=== PATIENT | female | born 1975 | race Caucasian/White ===

== ENCOUNTER → 2019-08-07 12:06 | Outpatient (CLI) | payer OTHER, SELFPAY ==
--- NOTE | ~2019-08-07 | MM_ITS ---
EXAMINATION: MM screening rhonda BI w estevan HISTORY: Screening mammogram TECHNIQUE: Craniocaudal and mediolateral oblique 3-D tomosynthesis images were obtained and synthetic 2-D images were generated. CAD analysis was submitted and interpreted. COMPARISON: 01/04/2016, 12/11/2014, 11/22/2013 bilateral digital screening mammogram examinations BREAST PARENCHYMAL COMPOSITION: There are scattered areas of fibroglandular density. FINDINGS: There is diminished size of both breasts consistent with history of bilateral breast reduct ion surgery in 2017. Minimal benign calcification on the left. There is no evidence of suspicious mas s, calcification, or architectural distortion to suggest malignancy in either breast. There has been no suspicious interval change. IMPRESSION: 1. No mammographic evidence of malignancy. 2. Recommend routine screening mammography in one year. BI-RADS Category 2: Benign finding(s). Reviewed, dictated and finalized at location A. ATTENDANT
== END ==
PROVIDERS: Visit Provider Obstetrics & Gynecology
DX: Z12.31 Encounter for screening mammogram for malignant neoplasm of breast (principal)
CPT/HCPCS: 77063; 77067

== ENCOUNTER 2020-03-09 11:10 | Outpatient (CLI) | payer OTHER, SELFPAY ==
--- NOTE | ~2020-03-09 | XR_ITS ---
XR chest 2V DATE: 03/09/2020 11:41 INDICATION: Cough, shortness of breath, chest pain TECHNIQUE: PA and lateral views COMPARISON: 03/03/2017 PA view FINDINGS: Normal heart size. No hilar or mediastinal enlargement. No pulmonary infiltrate or consolid ation, pleural effusion or pulmonary vascular congestion or pneumothorax. IMPRESSION: No active cardiopulmonary disease Reviewed, dictated and finalized at location A.
== END 2020-03-09 11:11 | disposition home or self-care (01) ==
PROVIDERS: PCP Family Medicine; Visit Provider Nurse Practitioner Family
DX: R05 Cough (principal); R06.02 Shortness of breath; R07.9 Chest pain, unspecified
CPT/HCPCS: 71046

== ENCOUNTER 2020-04-06 15:24 | Outpatient (CLI) | payer OTHER, SELFPAY ==
[2020-04-06 16:43] LABS: Monoscreen Negative (Negative); Negative Monotest Control Negative (Negative); Positive Monotest Control Positive (Positive)
== END 2020-04-06 15:25 | disposition home or self-care (01) ==
LOC: ANHLAB 15:26
PROVIDERS: PCP Family Medicine; Visit Provider Otolaryngology
DX: J02.9 Acute pharyngitis, unspecified (principal)
CPT/HCPCS: 36415; 86308

== ENCOUNTER 2020-11-27 14:22 | Outpatient (CLI) | payer OTHER, SELFPAY ==
--- NOTE | ~2020-11-27 | XR_ITS ---
EXAMINATION: XR abdomen/kub 1V INDICATION: Right-sided abdominal pain TECHNIQUE: Supine views of the abdomen were obtained on 2 radiographs. COMPARISON: None FINDINGS: The bowel gas pattern is normal. The visualized lung bases are clear. The osseous structure s are unremarkable. IMPRESSION: 1. No radiographic correlate for the patient's symptoms. Reviewed, dictated and finalized at location A.
== END 2020-11-27 14:23 ==
PROVIDERS: PCP Family Medicine; Visit Provider Nurse Practitioner Family
DX: R10.9 Unspecified abdominal pain (principal)
CPT/HCPCS: 74018

== ENCOUNTER 2021-06-24 10:26 | Outpatient (CLI) | payer OTHER, SELFPAY ==
--- NOTE | ~2021-06-24 | XR_ITS ---
XR lumbar spine 2-3V DATE: 06/24/2021 10:52 INDICATION: Back pain TECHNIQUE: AP, lateral, coned lateral lumbosacral views COMPARISON: 11/23/2015 CT abdomen pelvis FINDINGS: There is slight dextroscoliosis of the lumbar spine. No fracture or bone destruction is evident. The lumbar pedicles are intact. Lumbar and lumbosacral in terspaces are well preserved. The sacral iliac joints are normal. IMPRESSION: Slight scoliosis Reviewed, dictated and finalized at location A. CTOR OF PROCUREMENT IMPRESSION: Slight scoliosis
--- NOTE | ~2021-06-24 | XR_ITS ---
XR chest 2V DATE: 06/24/2021 10:53 INDICATION: Cough TECHNIQUE: 2 views COMPARISON: 03/09/2020 2 view chest FINDINGS: Normal heart size. No hilar or mediastinal enlargement. No pulmonary infiltrate or consolid ation, pleural effusion or pulmonary vascular congestion or pneumothorax is detected. Included skelet al structures are unremarkable. IMPRESSION: No active cardiopulmonary disease Reviewed, dictated and finalized at location A. E WIRER
== END 2021-06-24 10:27 ==
PROVIDERS: PCP Family Medicine; Visit Provider Nurse Practitioner Family
DX: M54.9 Dorsalgia, unspecified (principal); R05.9 Cough, unspecified
CPT/HCPCS: 71046; 72100

== ENCOUNTER 2022-01-27 10:52 | Outpatient (CLI) | payer OTHER, SELFPAY ==
--- NOTE | ~2022-01-27 | MR_ITS ---
EXAMINATION: MR lumbar spine wo con DATE: 01/27/2022 11:30 INDICATION: Low back pain with radiculopathy. TECHNIQUE: Magnetic resonance imaging (MRI) of the lumbar spine was performed without intravenous con trast. Sequences included sagittal T2-weighted FSE, sagittal T2-weighted FS FSE, sagittal T1-weighted FSE, and axial T2-weighted FSE. COMPARISON: Lumbar spine radiograph 06/24/21 FINDINGS: Bone alignment is normal. Vertebral body heights and intervertebral disc heights are normal . The distal spinal cord signal intensity is normal. The conus medullaris is at T12-L1. The following disc levels are specifically discussed: L1-L2: The disc does not extend beyond the endplate margin. There is no facet joint osteoarthritis. T here is no neural foraminal stenosis. There is no central canal stenosis. L2-L3: The disc does not extend beyond the endplate margin. There is no facet joint osteoarthritis. T here is no neural foraminal stenosis. There is no central canal stenosis. L3-L4: The disc does not extend beyond the endplate margin. There is mild bilateral facet joint osteo arthritis. There is no neural foraminal stenosis. There is no central canal stenosis. L4-L5: The disc is bulging and has an annular fissure. There is moderate bilateral facet joint osteoa rthritis. There is mild bilateral neural foraminal stenosis. There is mild central canal stenosis. L5-S1: There is a central protrusion. There is moderate bilateral facet joint osteoarthritis. There i s no neural foraminal stenosis. There is mild central canal stenosis. IMPRESSION: 1. Mild lumbar spondylosis. Reviewed, dictated and finalized at location A. IMPRESSION: 1. Mild lumbar spondylosis.
== END 2022-01-27 10:53 ==
PROVIDERS: PCP Family Medicine; Visit Provider Physician Assistant Medical
DX: M47.26 Other spondylosis with radiculopathy, lumbar region (principal)
CPT/HCPCS: 72148

== ENCOUNTER 2023-02-13 02:31 | Day surgery (SDC) | payer OTHER, SELFPAY ==
[2023-01-30 13:47] VITALS: BMI 30.7
--- NOTE | 2023-02-13 09:02 | WPDANESEPPF ---
Anes - Initial Pre Proc Eval Procedure: Operation Date: 02/13/23 13:00 Proposed Procedures p Screening Colonoscopy - Dax Henson MD Date/Time: 02/13/23 09:02 Surgeon: Dax Henson MD Pre Op Diagnosis: neoplasm screening Patient Data Age: 47 Gender: F Height: 1.52 m Weight: 71.5 kg Allergies Allergy/AdvReac Type Severity Reaction Status Date / Time cefazolin AdvReac Intermediate ANTIBIOTIC Verified 02/13/23 11:41 THAT SOUNDS LIKE THIS, NAUSEA/VOMITING morphine AdvReac Intermediate itching Verified 02/13/23 11:41 sulfanilamide AdvReac Intermediate nausea Verified 02/13/23 11:41 Home Medications Medication Instructions Recorded Confirmed Type montelukast 10 mg tablet 10 mg PO DAILY #30 tabs 01/03/22 01/30/23 Rx (Singulair) albuterol sulfate 90 mcg/actuation See Rx Instructions .Route 10/02/22 01/30/23 Rx aerosol inhaler .COMPLEX #9 grams pwoksl-rljajdjc-vfrnyie 1 cap PO TID #30 caps 10/02/22 01/30/23 Rx 24,000-76,000-120,000 unit capsule,delayed rel (Creon) ondansetron HCl 4 mg tablet 4 mg PO Q6H PRN nausea and 11/21/22 01/30/23 Rx vomiting #20 tabs cyclobenzaprine 10 mg tablet 10 mg PO TID PRN muscle spasm #60 11/29/22 01/30/23 Rx tabs nabumetone 500 mg tablet 500 mg PO BID #30 tabs 12/19/22 01/30/23 Rx escitalopram oxalate 10 mg tablet 10 mg PO DAILY #90 tabs 01/11/23 01/30/23 Rx Patient hx anesthesia problems: none Family hx anesthesia problems: none Results Review: All pre-operative results and documents have been reviewed as part of the pre-operative evaluation. [facility] Past Medical History Medical History (Updated 02/13/23 @ 11:52 by Dax Henson MD) Acute meniscal tear of right knee Anxiety BMI 29.0-29.9,adult BMI 30.0-30.9,adult BMI 31.0-31.9,adult Other stressful life events affecting family and household Tensor fascia carolyn syndrome Surgical History Surgical History History of knee surgery Hx of breast reduction, elective Family History Family History Mother Hypertension H/O knee surgery Asthma Hyperlipidemia ALS (amyotrophic lateral sclerosis) Grandparent Family history of lung cancer Family history of coronary artery disease Diabetes mellitus Family history of malignant neoplasm of ovary Father Acute myocardial infarction Sibling Asthma Other Carcinoma of colon Family history of malignant neoplasm of breast Social History Social History (Updated 01/30/23 @ 10:48 by ISMA Hastings) Smoking status: Former smoker Second hand tobacco smoke exposure: No Alcohol intake: never Substance use: never Substance use type: does not use Lack of Transportation: No Lack of Food: Never True Current Housing: I Have Housing Concerned About Future Housing: No Difficulty Paying Gas/Electric Bills: No Difficulty Paying for Meds: No Currently Unemployed: No Education: High School Diploma/GED Difficulty w/ Childcare or Family Care: No Living arrangements: other Additional living arrangements comments: With sp Occupation/Education: occupation 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 Pt's father in September and mother was diagnosed with ALS. Pt Gender identity (if verbalized by the patient): Female Anes - Eval Final PreProcedure Day of Procedure 02/13/23 09:02 Patient weight: obese Heart: regular rate and rhythm Lungs: clear to auscultation Airway: Mallampati scale class II Neurological: alert and oriented Last oral intake: >/= 8 hours ASA classification: II Emergent: no Anesthetic plan: proceed Anesthesia type and monitoring: general GIVS and standard monitoring Results Review: All pre-operative results and documents have been reviewed as part of the pre-operative evaluation.
[2023-02-13 11:42] VITALS: BP 136/76; PULSE 87; RESP 18; TEMP 36.2; O2SAT 100
[2023-02-13] MEDS: LACTATED RINGERS 1,000 ML 150 ML IV CONT (11:51)
--- NOTE | 2023-02-13 11:51 | PM.HPGS ---
History of Present Illness History of Present Illness Consent: Risks, benefits, and alternatives have been discussed and questions answered. Patient agrees to proceed with procedure. Chief complaint: neoplasm screening Narrative: Amelia Schneider is a 47 year old female Presents for screening colonoscopy. Patient's current weight appetite and bowel movements are normal. Patient denies abdominal pain. She has had no bleeding. Family history noncontributory. Review of Systems Review of Systems: Review of systems noncontributory. [facility] Past Medical History Medical History (Updated 02/13/23 @ 11:52 by Dax Henson MD) Acute meniscal tear of right knee Anxiety BMI 29.0-29.9,adult BMI 30.0-30.9,adult BMI 31.0-31.9,adult Other stressful life events affecting family and household Tensor fascia carolyn syndrome Surgical History Surgical History History of knee surgery Hx of breast reduction, elective Family History Family History Mother Hypertension H/O knee surgery Asthma Hyperlipidemia ALS (amyotrophic lateral sclerosis) Grandparent Family history of lung cancer Family history of coronary artery disease Diabetes mellitus Family history of malignant neoplasm of ovary Father Acute myocardial infarction Sibling Asthma Other Carcinoma of colon Family history of malignant neoplasm of breast Social History Social History (Updated 01/30/23 @ 10:48 by ISMA Hastings) Smoking status: Former smoker Second hand tobacco smoke exposure: No Alcohol intake: never Substance use: never Substance use type: does not use Lack of Transportation: No Lack of Food: Never True Current Housing: I Have Housing Concerned About Future Housing: No Difficulty Paying Gas/Electric Bills: No Difficulty Paying for Meds: No Currently Unemployed: No Education: High School Diploma/GED Difficulty w/ Childcare or Family Care: No Living arrangements: other Additional living arrangements comments: With sp Occupation/Education: occupation 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 Pt's father in September and mother was diagnosed with ALS. Pt Gender identity (if verbalized by the patient): Female Meds Home Medications and Allergies Home Medications Medication Instructions Recorded Confirmed Type montelukast 10 mg tablet 10 mg PO DAILY #30 tabs 01/03/22 01/30/23 Rx (Singulair) albuterol sulfate 90 mcg/actuation See Rx Instructions .Route 10/02/22 01/30/23 Rx aerosol inhaler .COMPLEX #9 grams pzxawx-hzhvzoys-kuzaceh 1 cap PO TID #30 caps 10/02/22 01/30/23 Rx 24,000-76,000-120,000 unit capsule,delayed rel (Creon) ondansetron HCl 4 mg tablet 4 mg PO Q6H PRN nausea and 11/21/22 01/30/23 Rx vomiting #20 tabs cyclobenzaprine 10 mg tablet 10 mg PO TID PRN muscle spasm #60 11/29/22 01/30/23 Rx tabs nabumetone 500 mg tablet 500 mg PO BID #30 tabs 12/19/22 01/30/23 Rx escitalopram oxalate 10 mg tablet 10 mg PO DAILY #90 tabs 01/11/23 01/30/23 Rx Allergies Allergy/AdvReac Type Severity Reaction Status Date / Time cefazolin AdvReac Intermediate ANTIBIOTIC Verified 02/13/23 11:41 THAT SOUNDS LIKE THIS, NAUSEA/VOMITING morphine AdvReac Intermediate itching Verified 02/13/23 11:41 sulfanilamide AdvReac Intermediate nausea Verified 02/13/23 11:41 Vital Signs Vital Signs - 24 hr 02/13/23 11:42 Temperature 97.1 F L Pulse Rate 87 Respiratory Rate 18 Blood Pressure 136/76 Pulse Oximetry 100 Oxygen Delivery Room Air Exam Narrative: Physical exam reveals patient to be alert. Vital signs stable. HEENT exam is unremarkable. Patient is anicteric. Lungs are clear to auscultation and percussion. Heart is without murmur or extra sounds. Ab
[2023-02-13 14:00] VITALS: BP 106/67; PULSE 93; RESP 22; O2SAT 97
[2023-02-13 14:10] VITALS: BP 99/65; PULSE 84; RESP 18; O2SAT 99
[2023-02-13 14:20] VITALS: BP 115/69; PULSE 84; RESP 17; O2SAT 100
== END 2023-02-13 14:22 | disposition home or self-care (01) ==
PROVIDERS: PCP Family Medicine; Visit Provider Internal Medicine Gastroenterology
PROC: 0DJD8ZZ Inspection of Lower Intestinal Tract, Via Natural or Artificial Opening Endoscopic (ICD-10-PCS; CPT 45378; principal; 2023-02-13 13:00)
DX: Z12.11 Encounter for screening for malignant neoplasm of colon (principal); K62.1 Rectal polyp; K64.8 Other hemorrhoids; F41.9 Anxiety disorder, unspecified; Z79.51 Long term (current) use of inhaled steroids; E66.9 Obesity, unspecified; Z68.29 Body mass index [BMI] 29.0-29.9, adult
CPT/HCPCS: 45385; 88305; J2704; J7120

== ENCOUNTER → 2023-02-14 14:35 | Outpatient (CLI) | payer OTHER, SELFPAY ==
--- NOTE | ~2023-02-14 | MM_ITS ---
EXAMINATION: MM screening rhonda BI w estevan HISTORY: Screening mammogram TECHNIQUE: Craniocaudal and mediolateral oblique 3-D tomosynthesis images were obtained and synthetic 2-D images were generated. CAD analysis was submitted and interpreted. COMPARISON: 08/07/2019, 01/04/2016 bilateral screening mammogram examinations BREAST PARENCHYMAL COMPOSITION: There are scattered areas of fibroglandular density. FINDINGS: History of bilateral breast reduction surgery in 2017. There is no evidence of suspicious m ass, calcification, or architectural distortion to suggest malignancy in either breast. There has bee n no suspicious interval change. IMPRESSION: 1. No mammographic evidence of malignancy. 2. Recommend routine screening mammography in one year. BI-RADS Category 1: Negative Reviewed, dictated and finalized at location A.
== END ==
PROVIDERS: PCP Family Medicine; Visit Provider Obstetrics & Gynecology
DX: Z12.31 Encounter for screening mammogram for malignant neoplasm of breast (principal)
CPT/HCPCS: 77063; 77067

== ENCOUNTER 2023-05-04 08:18 | Outpatient (CLI) | payer OTHER, SELFPAY ==
--- NOTE | 2023-05-24 07:15 | WPDHOMESLEEP ---
Sleep Study - Home Unattended Date of Study: 05/04/23 Ordering Provider: Ran Naidu MD Interpreting Provider: Jenelle Roper, DO Home Sleep Study Type: Watch PAT Height: 1.52 m Weight: 72.575 kg Body Mass Index: 31.2 Neck Circumference (inches): 13 [place]: 18 Reason for Sleep Study Loud snoring, unrefreshing sleep Sleep History The patient is a 47-year-old female that had a sleep study ordered by her primary care physician for evaluation of sleep apnea. She frequently awakens from sleep short of breath. She rarely awakens at night with heartburn, belching or cough. She constantly snores loudly enough that others complain. She frequently has trouble sleeping when she has a cold. She occasionally wakes up gasping for air throughout the night. She frequently has breathing problems at night observed by herself or others. She occasionally sweats excessively at night. She rarely has heart palpitations or irregular heartbeats during the night. She occasionally falls asleep during the day but rarely falls asleep while driving. She denies sleep paralysis and cataplexy. She occasionally has trouble at school or work due to sleepiness. She rarely experiences vivid dreamlike scenes upon awakening or falling asleep. He denies feeling afraid of going to sleep. She denies having nightmares. She denies remembering her dreams. He denies having thoughts racing through her mind. She occasionally feels sad or depressed and frequently has anxiety. She frequently has muscular tension. She occasionally notices parts of her body jerk. She rarely kicks during the night. She denies having crawling and aching feelings in legs but frequently has leg pain during the night. She denies grinding her teeth during sleep and denies awakening with morning jaw pain. She is frequently bothered by pain during the day and occasionally awakened by pain during the night. She frequently wakes up feeling stiff in the morning. She frequently wakes up with sore or achy muscles. She frequently wakes up with pain in the neck, spine or other joints. She does not have a set bedtime or wake up time. She is able to fall asleep within a few seconds. She wakes up 5-6 times throughout the night to feed her grandchild and is able to fall back asleep within 20 minutes. She typically gets 5 hours of sleep per night. She does not stay in bed after waking up in the morning. She currently lives with her , daughter, daughter's boyfriend and her grand children. She denies consuming any caffeinated beverages within 2 hours of bedtime. She denies engaging in physical exercise before bedtime. She denies reading and watching television before falling asleep. She will take naps during the afternoon or the evening whenever she can but they are not refreshing. She consumes 1-2 glasses of soda or caffeinated tea per day. She denies tobacco, alcohol and recreational drug use. 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
[2023-05-24 07:25] VITALS: BMI 31.2
== END 2023-05-05 10:27 | disposition home or self-care (01) ==
LOC: ANHCSM 08:19
PROVIDERS: PCP Family Medicine; Visit Provider Family Medicine
DX: G47.19 Other hypersomnia (principal); G47.10 Hypersomnia, unspecified
CPT/HCPCS: 95800

== ENCOUNTER 2023-07-14 09:22 | Outpatient (CLI) | payer OTHER, SELFPAY ==
--- NOTE | 2023-07-26 10:27 | WPDSLEEPSTUD ---
Sleep Study Date of Study: 07/14/23 Ordering Provider: Ran Naidu MD Interpreting Physician: Lyn Figueroa MD Sleep Study Type: Polysomnogram Height: 1.5 m Weight: 72.575 kg Body Mass Index: 32.3 Neck Circumference (inches): 13 [place]: 18 Reason for Sleep Study Loud snoring Sleep History Amelia Schneider is a 47-year-old female who had a home sleep test May 04, 2023, AHI was 3 which is in the normal range, however she desaturated to 83%. She returns for an in-lab polysomnogram. She frequently awakens from sleep feeling short of breath. She rarely awakens at night with heartburn, belching or coughing. She constantly snores loudly enough that others complain. She frequently has trouble sleeping when she has a cold. She occasionally wakes up gasping for air at night. She frequently has breathing problems at night observed by her . She occasionally sweats excessively at night. She rarely has heart palpitations or irregular heartbeats during the night. She occasionally falls asleep during the day but rarely falls asleep while driving. She denies feeling paralyzed on falling asleep or upon waking. She does not have loss of muscle tone with strong emotion. She occasionally has daytime difficulties due to excessive daytime sleepiness. 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 She rarely experiences vivid dreamlike scenes upon awakening or falling asleep. She is not afraid of going to sleep. She denies having nightmares. She denies remembering her dreams. He denies having thoughts racing through her mind. She occasionally feels sad or depressed, frequently has anxiety. She frequently has muscular tension. She occasionally notices parts of her body jerk. She rarely kicks during the night. She denies having crawling and aching feelings in legs but frequently has leg pain during the night. She denies grinding her teeth during sleep and denies awakening with morning jaw pain. She is frequently bothered by pain during the day and occasionally awakened by pain during the night. She frequently wakes up feeling stiff in the morning. She frequently wakes up with sore or achy muscles. She frequently wakes up with pain in the neck, spine or other joints. She does not have a set bedtime or wake up time. She is able to fall asleep within a few seconds. She wakes up 5-6 times throughout the night to feed her grandchild and is able to return to sleep within 20 minutes. She typically gets 5 hours of sleep per night. She does not stay in bed after waking up in the morning. She currently lives with her , daughter, daughter's boyfriend and her grandchildren. She takes naps during the afternoon or the evening whenever she can but they are not refreshing. Habits: Tobacco: none. Caffeine: 1-2 glasses of soda or tea per day. 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
[2023-07-26 10:29] VITALS: BMI 32.3
== END 2023-07-15 07:00 | disposition home or self-care (01) ==
PROVIDERS: PCP Family Medicine; Visit Provider Family Medicine
DX: G47.33 Obstructive sleep apnea (adult) (pediatric) (principal); R06.83 Snoring
CPT/HCPCS: 95810

== ENCOUNTER 2024-03-14 14:30 | Outpatient (CLI) | payer OTHER, SELFPAY ==
--- NOTE | ~2024-03-14 | CT_ITS ---
CLINICAL INDICATION: Right lower quadrant pain (at site of incisional hernia). COMPARISON: 11/27/2015 . TECHNIQUE: Computed tomography (CT) of the abdomen and pelvis was performed without intravenous contr ast. The dose-length product was 656.21 mGy-cm. FINDINGS/OBSERVATIONS: Visualized lower thorax:The bilateral lung bases are clear. The heart is of normal size, without pericardial effusion. Small hiatal hernia. Liver: The liver is not enlarged measuring 16 cm in longitudinal dimension. Gallbladder and biliary system: The gallbladder is only minimally distended without calcified stones. Pancreas: Limited evaluation of the pancreas secondary to the left and intravenous contrast. Spleen: Homogeneous attenuation of the spleen without enlargement. Kidneys: No hydronephrosis or renal calculi. Adrenal glands: Unremarkable. Gastrointestinal tract: Fecal stasis within the colon. Appendix:The air-filled appendix is normal caliber (series 3, image 136). Vasculature: Unremarkable Lymph nodes: No pathologically enlarged or morphologically suspicious lymph nodes within the retroper itoneum or at the root of the mesentery. Pelvic structures:The bladder is decompressed. A subcentimeter urachal cyst is present. Multiple calcifications are identified within the pelvis. The uterus is nonvisualized. Body wall and musculoskeletal: No significant degenerative disease within the lumbosacral spine. Small fat-containing umbilical hernia. IMPRESSION: No discrete abnormality is identified within the right lower quadrant to correspond to patient's pain complaints. Reviewed, dictated and finalized at location A. IMPRESSION: No discrete abnormality is identified within the right lower quadrant to corres pond to patient's pain complaints.
== END 2024-03-14 14:31 | disposition home or self-care (01) ==
PROVIDERS: PCP Family Medicine; Visit Provider Surgery
DX: K43.2 Incisional hernia without obstruction or gangrene (principal)
CPT/HCPCS: 74176

== ENCOUNTER 2024-05-31 05:51 | Day surgery (SDC) | payer OTHER, SELFPAY ==
[2024-05-10 09:33] VITALS: BMI 34.2
--- NOTE | 2024-05-30 09:49 | WPDANESEPPF ---
Anes - Initial Pre Proc Eval Procedure: Operation Date: 05/31/24 07:30 Proposed Procedures p Arthrodesis First Metatarsophalangeal Joint Left Foot - Corey Kim Jr., DPM s Hammer Toe Repair Second Digit Left Foot - Corey Kim Jr., DPM Date/Time: 05/30/24 09:49 Surgeon: Corey Kim Jr., DPM Pre Op Diagnosis: Bunion Left Foot, Hammer Toe Second Digit LT Foot Patient Data Age: 48 Gender: F Height: 1.52 m Weight: 79.5 kg Allergies Allergy/AdvReac Type Severity Reaction Status Date / Time cefazolin AdvReac Intermediate ANTIBIOTIC Verified 05/31/24 06:12 THAT SOUNDS LIKE THIS, NAUSEA/VOMITING Inhaled Anesthetics (Halogen AdvReac Intermediate Nausea and Verified 05/31/24 06:12 Based) Vomiting morphine AdvReac Intermediate itching Verified 05/31/24 06:12 sulfanilamide AdvReac Intermediate nausea Verified 05/31/24 06:12 Home Medications ?Medication ?Instructions ?Recorded ?Confirmed ?Type [id number] 1 cap PO TID #100 caps 10/10/23 05/31/24 Rx 24,000-76,000-120,000 unit capsule,delayed rel (Creon) cyclobenzaprine 10 mg tablet 10 mg PO TID PRN muscle spasm #60 10/19/23 05/31/24 Rx tabs cetirizine 10 mg tablet (Zyrtec) 10 mg PO DAILY #90 tabs 01/01/24 05/31/24 Rx diclofenac sodium 1 % topical gel 2 g topical QID #200 grams 01/23/24 05/31/24 Rx escitalopram oxalate 10 mg tablet 10 mg PO DAILY #90 tabs 04/01/24 05/31/24 Rx albuterol sulfate 90 mcg/actuation See Rx Instructions .Route 04/11/24 05/31/24 Rx aerosol inhaler .COMPLEX #9 grams benzonatate 100 mg capsule 100 mg PO TID PRN cough 05/07/24 05/31/24 History loratadine 10 mg tablet (Claritin) 10 mg PO DAILY 05/10/24 05/31/24 History Patient hx anesthesia problems: post op nausea/vomiting Family hx anesthesia problems: none Results Review: All pre-operative results and documents have been reviewed as part of the pre-operative evaluation. 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 Apnea Anxiety Other stressful life events affecting family and household Tensor fascia carolyn syndrome Acute meniscal tear of right knee (~2020) Surgical History Surgical History H/O meniscectomy of right knee Delivery by section c/ s x 2 History of gynecological procedure (10/24/12) I&D BARTHOLIN GLAND ABSCESS S/P total abdominal hysterectomy (08/03/06) BEAU- NO BSO - dense pelvic adhesions History of gynecological procedure (07/27/02) LAPAROSCOPIC ADHESIOLYSIS History of gynecological procedure (09/04/02) VAGINAL BX - GRANULATION TISSUE H/O tubal ligation (~2000) History of hysteroscopy (03/11/99) suction D&C missed AB Hx of breast reduction, elective (~2017) History of knee surgery Family History Family History Mother Hypertension H/O knee surgery Asthma Hyperlipidemia ALS (amyotrophic lateral sclerosis) Grandparent Family history of lung cancer Family history of coronary artery disease Diabetes mellitus Family history of malignant neoplasm of ovary Father Acute myocardial infarction Sibling Asthma H/O lumpectomy Anemia Other Carcinoma of colon Family history of malignant neoplasm of breast Social History Social History Smoking status: Never smoker Second hand tobacco smoke exposure: Yes Alcohol intake: never Substance use: never Substance use type: does not use Do You Feel Safe in your Home?: Yes Lack of Transportation: No Lack of Food: Never True Current Housing: I Have Housing Concerned About Future Housing: No Difficulty Paying Gas/Electric Bills: No Difficulty Paying for Meds: Decline to Answer Currently Unemployed: No Education: High School Diploma/GED Difficulty w/ Childcare or Family Care: No Living arrangements: with family Additional living arrangements comments: Occupation/Education: occupation 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 Pt's father in September and mother was diagnosed with ALS. Gender identity (if verbalized by the patient): Female Sexual Orientation (if Verbalized by the Patient): Straight or Heterosexual Spiritual care concerns: No Anes - Eval Final PreProcedure Day of Procedure 05/30/24 09:49 Patient weight: obese Heart: regular rate and rhythm Lungs: clear to auscultation Airway: Mallampati scale class II Neurological: alert and oriented Last oral intake: >/= 8 hours ASA classification: II Emergent: no Anesthetic plan: proceed Anesthesia type and monitoring: general LMA and standard monitoring Results Review: All pre-operative results and documents have been reviewed as part of the pre-operative evaluation. Informed Consent: The patient's anesthetic plan and its attendant risks and benefits were discussed with the patient/family/POA. Questions were solicited and answers provided to the satisfaction of the patient/family/POA.
[2024-05-31] VITALS (11 sets, daily range): BP systolic 107–130; BP diastolic 69–77; PULSE 83–105; RESP 13–20; TEMP 36.1–36.6; O2SAT 97–100; BMI 33.8
--- NOTE | ~2024-05-31 | XR_ITS ---
EXAMINATION: XR fluoroscopy no charge DATE: 05/31/2024 09:21 INDICATION: Hammertoe correction with proximal interphalangeal arthrodesis implant. TECHNIQUE: 2 fluoroscopic images of the left forefoot were obtained during procedure performed by Dr. Kim. Radiologist was not present for the imaging or procedure. The amount of fluoroscopy time u sed during this procedure was 0.5 minutes. Total DAP was 1.58 cGycm^2 COMPARISON: 01/03/2018 FINDINGS: Interval bunionectomy at the medial head of the first metatarsal and first metatarsophalangeal arthro desis with oblique compression screw and dorsal plate and screw fixation. Shortening osteotomy at the neck of the second metatarsal which is fixed with a pair of screws. Second proximal interphalangeal arthrodesis with placement over a wire of an implant spanning the joint space. No fractures. Alignmen t appears essentially anatomic. Lucent likely postoperative gas at the slightly widened second metata rsophalangeal joint space. IMPRESSION: 1. Fluoroscopy utilized during orthopedic procedure at the left forefoot as detailed above. See proce dure note for further detail. Reviewed, dictated and finalized at location A. FACTURING INTERN IMPRESSION: 1. Fluoroscopy utilized during orthopedic procedure at the left forefoot as det scott above. See procedure note for further detail.
[2024-05-31] MEDS: LACTATED RINGERS 1,000 ML 30 ML IV CONT ×2 (06:37→09:26)
--- NOTE | 2024-05-31 07:12 | WPDHPUPDATE1 ---
History and Physical Update Update Date/Time: 05/31/24 07:12 History and Physical has been reviewed, including an updated exam of the patient. There are NO changes in the patient's condition. Risks, benefits, and alternatives have been discussed and questions answered. Patient agrees to proceed with procedure.
--- NOTE | 2024-05-31 07:13 | WPDHPUPDATE1 ---
History and Physical Update Update Date/Time: 05/31/24 07:13 History and Physical has been reviewed, including an updated exam of the patient. There are NO changes in the patient's condition. Risks, benefits, and alternatives have been discussed and questions answered. Patient agrees to proceed with procedure.
[2024-05-31] MEDS: SCOPOLAMINE 1 MG PATCH 1 PATCH TRANSDERM (07:21)
[2024-05-31] MEDS: ceFAZolin SODIUM 2 GM/20 ML SW SYRINGE IV PUSH (07:27)
[2024-05-31] MEDS: BUPivacaine HCL 0.5% PF 30 ML VIAL INFILTRATE (07:36)
[2024-05-31] MEDS: LIDOCAINE 2% LOCAL INJ 20 ML VIAL 10 ML INFILTRATE (07:54)
--- NOTE | 2024-05-31 09:38 | W.PM.PROC2 ---
Procedure Note - Detailed Date of Procedure 05/31/24 Pre-op Diagnosis 1. Bunion Left Foot 2. Hammer Toe Second Digit Left Foot Post-op Diagnosis Other (1. Bunion Left Foot 2. Hammer Toe Second Digit Left Foot 3. 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 Arthrodesis of the first metatarsal phalangeal joint left foot 2. Hammertoe repair second digit left foot 3. 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 Description of Procedure PROCEDURE IN DETAIL: Under mild sedation, the patient was brought into the operating room, placed on the operating table in supine position. A pneumatic ankle tourniquet was placed about the patient's ipsilateral ankle. Following general anesthesia and a proximal Fox block along the base of the 1st and second metatarsals with a one to one mix 2% Lidocaine plain and 0.5% Marcaine plain 20ccs total, the foot was then scrubbed, prepped, and draped in the usual aseptic manner. An Esmarch bandage was then used to exsanguinate the patient's foot and the pneumatic ankle tourniquet was then inflated. Surgery began in the following manner: Attention was directed to the dorsal medial aspect of the 1st metatarsophalangeal joint of the left foot where there was a moderate subcutaneous prominence was noted. The incision was made starting along the central shaft of the 1st metatarsal and extending just proximal to the interphalangeal joint of the hallux. The incision was continued deep down through the subcutaneous tissues using sharp and blunt dissection. All bleeders were cauterized as necessary. At this point, the dissection was continued down to the level of the periosteum and capsular structures overlying the 1st metatarsophalangeal joint. A full length periosteum and capsular incision was made just medial to the extensor hallucis longus tendon. The periosteum and capsular structures were freed from the base of the proximal phalanx as well as the distal 1st metatarsal. At this point, the 1st metatarsophalangeal joint was identified. There was loss of articular cartilage to the head of the 1st metatarsal as well as the base of the proximal phalanx worse centrally and medially. There was significant broadening and hypertrophy of the 1st metatarsophalangeal joint. Utilizing a sagittal bone saw, the hypertrophied 1st metatarsal was resected dorsally, medially, and laterally. A power bur was used to make sure that there were no rough edges and also to further debride the hypertrophic 1st metatarsal. Next, a rongeur was used to resect the hypertrophic base of the proximal phalanx. At this point, the reamer system for the Maxforce plaste system was used to denude the degenerative cartilage from the head of the 1st metatarsal as well as the base of the proximal phalanx. The cartilage and subchondral bone were fully debrided utilizing the reamer system until healthy bleeding bone was noted. Next, a 2-0 drill bit was used to further fenestrate the head of the 1st metatarsal as well as the base of the proximal phalanx in order to allow fusion across the 1st metatarsophalangeal joint. Next, a guide wire for a 3.0 headless Arthrex compression screw was driven from the medial aspect of the base of the proximal phalanx into the head of the 1st metatarsal in order to serve as temporary fixation, next the cannulated screw was driven and provided excellent compression. Next A large steel plate was used to make sure that the hallux was in a rectus position both in the sagittal plane as well as the frontal plane. Excellent position of the hallux was noted. Next, a Maxforce plate was placed atop the 1st metatarsophalangeal joint held in position with Schneider wires. Utilizing standard principles and techniques, the distal drill holes were drilled and three 3.0 mm mm fully-threaded locking screws were driven from dorsal to plantar holding the distal aspect of the plate intact. At this point, the Maxforce compression system was utilized from dorsal distal to proximal plantar across the 1st metatarsophalangeal joint with excellent compression noted. Next, a 3.0mm locking screw was used to further compress the joint along the oblong dynamic compression screw slot. Next, the remaining 2 proximal drill holes were drilled from dorsal to plantar across and two 3.0 mm locking screws were driven form dorsal to plantar. The wound site was then flushed with copious amounts of sterile saline. Fluoroscopy was used to make sure that the plate was appropriately aligned and oriented and also to make sure that the screws were of appropriate length and orientation. Excellent position of the 1st metatarsophalangeal joint was visualized in all planes. Next, the periosteum and capsular structures were reapproximated with 2-0 Vicryl. Next, the subcutaneous structures were reapproximated with 4-0 Vicryl. Next, the skin was reapproximated and coapted utilizing 4-0 Monocryl in running subcuticular suture fashion technique. Attention was directed to the second digit of the left foot where a 5 cm incision was made from the distal interphalangeal joint extending to the 2nd metatarsal shaft. A transverse tenotomy was created dorsal to the proximal interphalangeal joint, next the head of the proximal phalanx was resected with an oscillating saw blade, the Arthrex Size Small Dynanite hammertoe planer was used to denude and prepare the joint for the hammertoe implant from the base of the middle phalanx and distal proximal phalanx. Next, I implanted the Arthrex Dynanite size small hammertoe implant in a cannulated fashion using standard technique. Fluoroscopy was used to make sure that the digit and implant were appropriately positioned. The dissection was continued to the dorsal aspect of the 2nd metatarsal head of the right foot where a 2 cm incision was made just medial to the extensor tendon to the 2nd digit. The incision was continued deep down through the subcutaneous tissues using sharp and blunt dissection. All bleeders were cauterized as necessary. A full-length periosteal incision was made overlying the 2nd metatarsal head distally. Next, a sagittal bone saw was used to make an osteotomy starting along the dorsal aspect of the articular surface to the head of the 2nd metatarsal in a parallel fashion to the shaft of the 2nd metatarsal. After this osteotomy was completed, the head of the 2nd metatarsal was noted to float into a more corrected proximal position. Two Arthrex 2.0mm Cannulated Quickfix screws were driven from dorsal to plantar across the osteotomy site with excellent compression noted. The wound site was then flushed with copious amounts of sterile saline. Next, the periosteum and capsular structures overlying 2nd digit and 2nd metatarsophalangeal joint were reapproximated with 4-0 Vicryl. Next, subcutaneous structures were reapproximated and coapted utilizing 4-0 Vicryl. I reapproximated the extensor tendon overlying the 2nd digit proximal interphalangeal joint with 4-0 Vicryl. Next, the skin was reapproximated and coapted utilizing 4-0 Monocryl in running subcuticular suture fashion technique. Upon completion of the procedure, the incision was dressed with Steri-Strips, Adaptic, 4x4s, Kerlix, and Coban. The pneumatic ankle tourniquet was then deflated and a prompt hyperemic response was noted to all digits of the foot. A posterior splint was then applied to the affected lower extremity. It is important to note that Dr. Kim was present throughout the procedure. The patient did very well with the procedure and the anesthesia. The patient was transferred to the recovery room with vital signs stable and vascular status intact to all toes of the foot. Following a period of postoperative monitoring, the patient will be discharged home on the following written and oral postoperative instructions: 1. Keep the dressing clean, dry, and intact. 2. The patient to be strictly nonweightbearing with a knee scooter or crutches. 3. The patient should ice and elevate the foot when at rest. 4. The patient should contact Dr. Kim for all postop care and if any problems should arise. 5. Prescriptions were written for Percocet 5/325, dispensed 40 to be taken 1 p.o. q.4-6 hours as needed for severe pain. Furthermore, the patient should also take Xarelto 10 mg to be taken 1 p.o. daily starting 24 hours after surgery to prevent DVT for 14 days followed by one 325 mg aspirin until walking is re-initiated. Implants 1. Arthrex Maxforce plate with Five 3.0mm locking screws 2. One Arthrex Headless cannulated screw 3. Two 2.0 Quickfix Arthrex Screws 4. One Arthrex Dynanite PIPJ size small hammertoe implant Estimated Blood Loss 1 Drains No Packing No Pathology None sent Complications No immediate complications Condition Stable Disposition Same day
--- NOTE | 2024-05-31 10:06 | SUR.PHASEI ---
Pt resting comfortably in PACU, Pt states numbness to leg, pain 0/10, denies nausea, VSS. Will continue to monitor pt.
--- NOTE | 2024-05-31 10:45 | WPDANESPN ---
Anes - Prog Note Post-Op Date/Time: 05/31/24 10:45 Cardiovascular status: normal Respiratory status: normal Airway patency: baseline Mental status: baseline Post-Op hydration status: normal Vital Signs: Last Vital Signs Temp 36.1 C L 05/31/24 09:26 Pulse 99 05/31/24 10:27 Resp 16 05/31/24 10:27 BP 122/74 05/31/24 10:27 Pulse Ox 100 05/31/24 10:27 O2 Del Method Room Air 05/31/24 10:27 O2 Flow Rate 8 05/31/24 09:46 Pain Score (VAS): 1 I/O: Intake & Output 05/30/24 05/31/24 05/31/24 23:59 07:59 15:59 Intake Total 1850 Balance 1850 Post-procedural complaints: none Patient Feedback: Patient satisfied with anesthetic care. Other Findings: Patient vital signs back to baseline. Patient denies nausea and vomiting. Patient's pain under control. Patient OK for discharge.
--- OUTSIDE RECORDS SUMMARY | 2024-06-07 10:54 | XMS_ITS | Encounter Summary ---
Author Organization [facility] Address [address] [place] [address]. [place], [place] [id number] [place] [id number] Care Team Providers Care Employee Relations Manager Name Role Phone Ross Campbell Primary Care Provider [phone] Encounter Details Date Type Department Care Team (Latest Contact Info) Description 08/24/2023 Travel Social History Tobacco Use Types Packs/Day Years Used Date Smoking Tobacco: Never Smokeless Tobacco: Never Comments:na Alcohol Use Standard Drinks/Week Comments Never 0 (1 standard drink = 0.6 oz pur e alcohol) PHQ-2 Answer Date Recorded Patient Health Questionnaire-2 Score 0 09/19/2022 Education Answer Date Recorded What is the highest level of school you have completed or the highest degree you have received? High school graduate 03/21/2023 Comments No Sex and Gender Information Value Date Recorded Sex Assigned at Not on file Legal Sex Female 8:23 PM CDT Gender Identity Not on file Sexual Orientation Not on file documented as of this encounter Plan of Treatment Not on file documented as of this encounter Visit Diagnoses Not on filedocumented in this encounter Care Teams Employee Relations Manager Relationship Specialty Start Date End Date Ross Campbell FNP [address] [place] [address] PCP - General Nurse Practitioner Family 02/11/21 documented as of this encounter
--- OUTSIDE RECORDS SUMMARY | 2024-06-07 10:54 | XMS_ITS | Encounter Summary ---
Author Organization [facility] Address [address] [place] [address]. [place], [place] [id number] [place] [id number] Care Team Providers Care Photographer Helper Name Role Phone Ross Campbell Primary Care Provider [phone]- [phone] Reason for Referral * Consultation/Treatment (Routine) - New Request Specialty Diagnoses / Procedures Referred By Contac t Referred To Contact PAIN MANAGEMENT Diagnoses Radiculopathy, lumbar region Procedures OFFICE/OUTPATIENT NEW LOW MDM 30-44 MINUTES OFFICE/OUTPT VISIT,NEW,LEVL IV OFFICE/OUTPT VISIT,NEW,LEVL V OFFICE/OUTPT VISIT,EST,LEVL III OFFICE/OUTPT VISIT,EST,LEVL IV OFFICE/OUTPT VISIT,EST,LEVL V Karen De Jesus MD [address] [place] [address] Phone: tel: fax: Althea Null MD [facility] [address] [facility] [place] [address] Phone: tel: fax: Referral ID Status Reason Start Date Expiration Date Visits Requested Visits Authorized [id number] New Request Specialty Services 08/24/2023 09/23/2024 1 1 Scheduling Instructions Right leg pain. Please assess for right L5-S1 transforaminal block * Imaging (Routine) - Closed Specialty Diagnoses / Procedures Referred By Contac t Referred To Contact RADIOLOGY Diagnoses Radiculopathy, lumbar region Procedures MRI LUMB SPINE WO CON Karen De Jesus MD [address] [place] [id number] Phone: tel: fax: Referral ID Status Reason Start Date Expiration Date Visits Re quested Visits Authorized [id number] Closed 08/24/2023 08/23/2024 1 1 Reason for Visit * Reason Comments Follow Up inj * Surgical (Routine) - Closed Specialty Diagnoses / Procedures Referred By Contac t Referred To Contact NEUROSURGERY Diagnoses Radiculopathy of lumbosacral region Procedures OFFICE/OUTPT VISIT,NEW,LEVL III OFFICE/OUTPT VISIT,NEW,LEVL IV OFFICE/OUTPT VISIT,NEW,LEVL V OFFICE/OUTPT VISIT,EST,LEVL III OFFICE/OUTPT VISIT,EST,LEVL IV OFFICE/OUTPT VISIT,EST,LEVL V Dillan Gee DO Phone: tel: fax: Karen De Jesus MD [address] [place] [address] Phone: tel: fax: Referral ID Status Reason Start Date Expiration Date V isits Requested Visits Authorized [id number] Closed Specialty Services 09/19/2022 10/21/2023 99 99 Encounter Details Date Type Department Care Team (Late st Contact Info) Description 08/24/2023 2:20 PM CDT Office Visit [facility] - [address], [address] [place] [address] Karen De Jesus MD [address] [place] [id number] Follow Up (inj) Social History Tobacco Use Types Packs/Day Years [...] on file documented as of this encounter Last Filed Vital Signs Vital Sign Reading Time Taken Comments Blood Pressure 122/76 08/24/2023 2:32 PM CDT Pulse 83 08/24/2023 2:32 PM CDT Temperature 37 ??C (98.6 ??F) 08/24/2023 2:32 PM CDT Respiratory Rate - - Oxygen Saturation 99% 08/24/2023 2:32 PM CDT Inhaled Oxygen Concentration - - Weight 71.2 kg (157 lb) 08/24/2023 2:32 PM CDT Height 152.4 cm (5') 08/24/2023 2:32 PM CDT Body Mass Index 30.66 08/24/2023 2:32 PM CDT documented in this encounter Progress Notes * Trisha Brunner MA - 08/24/2023 2:20 PM CDT PCP, TAWNYA Hernandez 04/13/23 Bilateral L6-S1 lumbar transforaminal VEGA inj 03/21/23 Right L4-5 lumbar transforaminal VEGA inj Previous -Pain is in the right hip and buttock and at this into the lateral aspect of the right thigh into the calf. She has numbness and tingling in the same distribution that extends into the top of the foot and toes. 100 % relief inj for one month walking normal no swelling in right leg Back to base line * Karen De Jesus MD - 08/24/2023 2:20 PM CDT Neurosurgery Progress Note History Amelia Schneider is a 47-year-old female who presents with right leg pain. Pain started after she tripped and fell on her right side at work in 2020. No significant back pain. Pain is in the right hip and buttock and radiates into the lateral aspect of the right thigh into the calf. She has numbness and tingling in the same distribution that extends into the top of the foot and toes. She had a right meniscus injury during the same incident that was treated surgically. MRI from 2021 showed mild degenerative changes at L4-5 where there is mild canal stenosis and mild bilateral foraminal stenosis. Mild canal stenosis at L5-S1. 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 Chronic right L5-S1 radiculopathy. She had right L4-5 transforaminal block that helped relieve her pain 100% for 1 month. She had bilateral L5-S1 transforaminal blocks that helped relieve her pain by 100% for 1 month. Pain is back to baseline. Past Medical History: Diagnosis Date Migraines Seasonal allergies Past Surgical History: Procedure Laterality Date ABDOMINAL HYSTERECTOMY W/ PARTIAL VAGINACTOMY 2007 BREAST REDUCTION BILATERAL 2017 SECTION x2 HC MENISCAL REPAIR 11/05/2020 right knee arthroscopy Social History Tobacco Use Smoking status: Never Smokeless tobacco: Never Tobacco comments: na Vaping Use Vaping Use: Never used Substance Use Topics Alcohol use: Never Drug use: Never Comment: na Family History Problem Relation Name Age of Onset Heart Disease Mother Recently dx w/ ALS 03/26 No outpatient medications have been marked as taking for the 08/24/23 encounter (Appointment) with Karen De Jesus MD. Review of patient's allergies indicates: Allergen Reactions General Anesthesia Nausea Only Morphine Rash Sulfa Antibiotics Rash Physical Exam Filed Vitals: 08/24/23 1432 BP: 122/76 Pulse: 83 Temp: 98.6 ??F (37 ??C) SpO2: 99% Weight: 71.2 kg (157 lb) Height: 1.524 m (5') Physical Exam: Alert and oriented x3 Assessment Encounter Diagnose(s) ICD-10-CM SNOMED CT(R) 1. Radiculopathy, lumbar region M54.16 LUMBAR RADICULOPATHY 2. Foraminal stenosis of lumbar region M48.061 STENOSIS OF LUMBAR VERTEBRAL FORAMEN Plan We discussed management options. I recommend for her to undergo updated MRI lumbar spine since her previous MRIs from 2 years ago. I offered her a referral to pain management for repeat injections and she agreed. Follow-up in 3 to 4 months. I spent 40 minutes today reviewing the patient's medical record, obtaining history, performing an exam, reviewing imaging, ordering medications, tests, and/or procedures, documenting in the medical record, counseling and educating the patient/family/caregiver and coordination of care. YARELI DE JESUS MD documented in this encounter Plan of Treatment Scheduled Referrals Name Type Priority Associated Diagnoses Orde r Schedule Ambulatory Referral to Pain Management Referral Routine Radiculopathy, lumbar region Ordered: 08/24/2023 documented as of this encounter Results * MRI LUMB SPINE WO CON (09/27/2023 12:47 PM CDT) Anatomical Region Laterality Modality Spine Magnetic Resonan ce 10/01/2023 4:51 PM CDT Impressions 10/01/2023 4:55 PM CDT IMPRESSION: 1. Multilevel degenerative changes in the lower thoracic and lumbar spine as detailed above. 2. Likely reactive/degenerative edema along the L4-L5 endplates and facets. 3. Approximately 1.9 cm cystic structure posterior bladder, uncertain whether ovarian cyst or bladder diverticulum. Probable 1.9 cm left ovarian cyst. Could further evaluate with follow-up pelvic ultrasound. Referred By: KAREN DE JESUS Interpreted By: Mayo Dueñas MD, 10/01/2023 4:51 PM Narrative 10/01/2023 4:55 PM CDT INDICATION: Low back pain. Numbness in right leg. EXAMINATION: MRI lumbar spine without contrast. TECHNIQUE: Multiplanar and multisequence MRI images of the lumbar spine were obtained without contrast. COMPARISON: None FINDINGS: There are 5 lumbar type vertebral bodies designated as L1 through L5; using this numbering system, the conus medullaris terminates at T12-L1 and appears unremarkable. The lumbar vertebral alignment, vertebral body heights, and facet alignment are maintained. Multilevel degenerative changes are evident in the lower thoracic and lumbar spine with disc degeneration, endplate osteophytes, ligamentum flavum thickening, and facet hypertrophy noted. Likely reactive/degenerative edema noted along the right L4-L5 endplates and L4-L5 facets (right worse than left). Mild multilevel disc desiccation, greatest at L4-L5. Imaged portions of the soft tissues reveal a 1.9 cm cystic structure posterior to the bladder. Probable 1.9 cm left ovarian cyst. T10-T11 and T11-T12: Mild disc bulges, evaluated only on sagittal images. T12-L1: Mild disc bulge. No canal or foraminal narrowing. L1-L2: Mild disc bulge. Mild facet hypertrophy. No canal or foraminal narrowing. L2-L3: Mild disc bulge. Mild ligamentum flavum thickening. Facet hypertrophy. No canal or foraminal narrowing. L3-L4: Mild disc bulge. Mild ligamentum flavum thickening. Facet hypertrophy. No significant canal or foraminal narrowing. L4-L5: Mild disc bulge. Small endplate osteophytes. Ligamentum flavum thickening. Facet arthropathy with bilateral facet joint synovial effusions. Flattening of the ventral thecal sac and abutment of the traversing nerve roots. Minimal canal stenosis. Minimal foraminal narrowing. L5-S1: Mild disc bulge. Facet hypertrophy. No significant canal or foraminal narrowing. Procedure Note Mayo Dueñas MD - 10/01/2023 INDICATION: Low back pain. Numbness in right leg. EXAMINATION: MRI lumbar spine without contrast. TECHNIQUE: Multiplanar and multisequence MRI images of the lumbar spine were obtainedwithout contrast. COMPARISON: None FINDINGS: There are 5 lumbar type vertebral bodies designated as L1 through L5;using this numbering system, the conus medullaris terminates at T12-L1 andappears unremarkable. The lumbar vertebral alignment, vertebral body heights, and facetalignment are maintained. Multilevel degenerative changes are evident inthe lower thoracic and lumbar spine with disc degeneration, endplateosteophytes, ligamentum flavum thickening, and facet hypertrophy noted.Likely reactive/degenerative edema noted along the right L4-L5 endplatesand L4-L5 facets (right worse than left). Mild multilevel discdesiccation, greatest at L4-L5. Imaged portions of the soft tissues reveal a 1.9 cm cystic structureposterior to the bladder. Probable 1.9 cm left ovarian cyst. T10-T11 and T11-T12: Mild disc bulges, evaluated only on sagittalimages. T12-L1: Mild disc bulge. No canal or foraminal narrowing. L1-L2: Mild disc bulge. Mild facet hypertrophy. No canal or foraminalnarrowing. L2-L3: Mild disc bulge. Mild ligamentum flavum thickening. Facethypertrophy. No canal or foraminal narrowing. L3-L4: Mild disc bulge. Mild ligamentum flavum thickening. Facethypertrophy. No significant canal or foraminal narrowing. L4-L5: Mild disc bulge. Small endplate osteophytes. Ligamentum flavumthickening. Facet arthropathy with bilateral facet joint synovialeffusions. Flattening of the ventral thecal sac and abutment of thetraversing nerve roots. Minimal canal stenosis. Minimal foraminalnarrowing. L5-S1: Mild disc bulge. Facet hypertrophy. No significant canal orforaminal narrowing. IMPRESSION: 1. Multilevel degenerative changes in the lower thoracic and lumbar spineas detailed above. 2. Likely reactive/degenerative edema along the L4-L5 endplates andfacets. 3. Approximately 1.9 cm cystic structure posterior bladder, uncertainwhether ovarian cyst or bladder diverticulum. Probable 1.9 cm left ovariancyst. Could further evaluate with follow-up pelvic ultrasound. Referred By: KAREN DE JESUS Interpreted By: Mayo Dueñas MD, 10/01/2023 4:51 PM Karen De Jesus MD MRI Final Resul t documented in this encounter Visit Diagnoses Diagnosis Radiculopathy, lumbar region- Primary Thoracic or lumbosacral neuritis or radiculitis, unspecified Foraminal stenosis of lumbar region Spinal stenosis, lumbar region, without neurogenic claudication Radiculopathy, lumbar region Thoracic or lumbosacral neuritis or radiculitis, unspecified documented in this encounter Care Teams Photographer Helper Relationship Specialty Start Date End Date Ross Campbell FNP [address] [place] [address] PCP - General Nurse Practitioner Family 02/11/21 documented as of this encounter
--- OUTSIDE RECORDS SUMMARY | 2024-06-07 10:54 | XMS_ITS | Encounter Summary ---
Author Organization [facility] Address [address] [place] [address]. [place], [place] [id number] [place] [address] Care Team Providers Care Pharmacy Data Analyst Name Role Phone Ross CampbellP Primary Care Provider +1- [phone] Reason for Visit * Auth/Cert (Routine) Specialty Diagnoses / Procedures Referred By Contac t Referred To Contact Diagnoses Radiculopathy, lumbar region Radiculopathy, lumbar region [M54.16] Procedures INJECTION EPIDURAL TRANSFORAMINAL L5-S1 Landon Null MD [facility] [address] [place] [address] Phone: tel: fax: Referral ID Status Reason Start Date Expiration Date Visits Re quested Visits Authorized [id number] 1 1 Encounter Details Date Type Department Care Team (Latest Contact Info) Description 10/02/2023 10:50 AM CDT - 10/02/2023 11:33 AM T Hospital Encounter [facility] [place], [place] [id number] Landon Null MD [facility] [address] [place] [address] [id number] Discharge Disposition: Home or Self Care (Routine Discharge) Social History Tobacco Use Types Packs/Day Years [...] Sign Reading Time Taken Comments Blood Pressure 135/81 10/02/2023 11:26 AM CDT Pulse 86 10/02/2023 11:26 AM CDT Temperature 36.7 ??C (98 ??F) 10/02/2023 11:07 AM CDT Respiratory Rate 18 10/02/2023 11:26 AM CDT Oxygen Saturation 100% 10/02/2023 11:26 AM CDT Inhaled Oxygen Concentration - - Weight 78.1 kg (172 lb 3.2 oz) 10/02/2023 11:07 AM CDT Height 152.4 cm (5') 10/02/2023 11:07 AM CDT Body Mass Index 33.63 10/02/2023 11:07 AM CDT documented in this encounter Discharge Instructions * Discharge Instructions* Niecy Marin RN - 10/02/2023 11:33 AM CDT Ross[facility] Interventional Pain Management Discharge Instructions WHAT TO DO TODAY: Limit your activity today, but bedrest is not required You may resume your normal activity tomorrow as tolerated Do not drive a vehicle or operate hazardous equipment for the first 24 hours after your procedure. You may experience numbness, tingling, and weakness in your extremities for several hours after your injection. Please be careful when walking or standing so you do not fall. You may remove your bandage in the morning and you may shower. WHAT TO DO TOMORROW: Resume your blood thinner medication if applicable. WHAT TO EXPECT OVER THE NEXT FEW DAYS TO A WEEK: Any weakness or tingling typically wears off after several hours but you may have some tingling forseveral days after some injections It is normal that once the numbing medicine wears off that you could be sore for several days before you notice relief. Pain should get better day by day. The steroid will start working after 2-3 days and can take up to 2 weeks for it to fully work. Everyone has different response to the injection depending on the amount of inflammation and diagnosis. HOW TO CONTROL YOUR PAIN: Injection site soreness is normal and will subside in a few days. We suggest ice packs to the injection site for 10-20 at a time every 2-3 hours. After 24 hours you may use heat if preferred or you may alternate heat and ice. Your pain may be worse for a couple of days; you may use any medications that you were using beforeyour visit. You may also use Tylenol, Motrin or Aleve if not contraindicated by your Primary Care Physician. If you no longer have any prescribed medicine, please get your refill from the physician who fist prescribed it for you. For patients who had a Radiofrequency Ablation your pain could last for up to 2 weeks. We are an Interventional pain management. We do not prescribe pain medicine. COMMON SIDE EFFECTS OF STEROIDS: You may experience warm, flushing sensation with redness in your face, neck and chest. You may feel anxious, jittery, irritable or have trouble sleeping. You may have increased hunger or menstrual changes (for women). If you are a diabetic you may have increased blood sugars. If you do and are unable to control please call your doctor who manages your diabetes. All side effects are temporary and should subside in approximately a week. WHEN TO CALL THE DOCTOR AND HOW TO REACH US: Call [phone] ext. [phone] for scheduling, insurance questions or speak with a nurse. Our hours are Monday- 8:00am-4:00pm Call the number above for any bleeding/drainage/redness/swelling at the injection site, severe pain, persistent chills, fever over 101 or greater, or new or different pain or numbness. If you are unable to reach us call 911 or go to the nearest emergency room. If you have shortness of breath, fast heart rate, throat/tongue swelling call 911 or go to the nearest emergency room. ANY NEW BOWEL OR BLADDER INCONTINENCE ISSUES OR NUMBNESS TO PELVIC REGION PLEASE GO TO THE EMERGENCY ROOM IMMEDIATELY! If you have the following insurances, please read CAREFULLY. Medicare, Medicare replacement plans, and/or Government plans [facility] Commercial plans Your insurance recommends we do ONE injection every THREE months depending on the amount of relief that you obtained from your injection. You should call our clinic in 2 months to schedule your next injection. Your insurance would like to measure your overall percentage of relief along with improvements in activity 3 months after your injection. Our office will need to document your progress at the 3 monthmarker. AFTER 14 DAYS, if you feel like the injection did not give you sufficient relief, please call our office to discuss with a nurse. If your pain RETURNS AND PERSISTS BEFORE the 2 month leonora, please call our office to discuss with anurse. PLEASE CALL WITH YOUR PERCENTAGE OF RELIEF IN {[facility] F/U:12967} Please call [phone] Ext. [phone] option 4. You may need to leave a message. Please leave the following information... 1. Name, date of , a number we can reach you for questions and the date you were here. 2. The amount of relief you received from your injection in percentage and how long it has lasted or if it is still currently helping you. 3. If you still have pain where is the pain? 4. Are you taking any medications for your pain? 5. Are you doing your physical therapy exercises/stretches or any physical activity? 6. Is there any activity that you are able to do that you were unable to do prior to your injection? Please know that if we do not receive this information your next injection may not get authorized by your insurance company and your treatment could be delayed. documented in this encounter Medications at Time of Discharge cetirizine 10 MG tablet Take 1 tablet (10 mg total) by mouth daily. 01/15/2021 CREON [id number] units capsule TAKE 1 CAPSULE BY MOUTH THREE TIMES DAILY WITH MEALS AND OR SNACKS 10/01/2020 VENTOLIN HFA 108 (90 Base) MCG/ACT inhaler INHALE 1 PUFF BY MOUTH EVERY 4 HOURS NEEDED FOR SHORTNESS OF BREATH AND FOR WHEEZING 03/09/2020 escitalopram (LEXAPRO) 10 MG tablet 12/19/2022 documented as of this encounter H&P Notes * Landon Null MD - 10/02/2023 11:20 AM CDT Admission Note With PreProc Assess CC: Low back right leg pain HPI: 47-year-old female seen as a follow-up she was last seen by me 04/13/2023. 04/13/23 Bilateral L6-S1 lumbar transforaminal VEGA inj 03/21/23 Right L4-5 lumbar transforaminal VGEA inj Previous -Pain is in the right hip and buttock and at this into the lateral aspect of the right thigh into the calf. She has numbness and tingling in the same distribution that extends into the top of the foot and toes. 100 % relief inj for one month walking normal no swelling in right leg Back to base line Patient is referral from office Dr. De Jesus for right L5-S1 lumbar transforaminal injection. Prior to Admission medications Medication Sig Start Date End Date Taking? Authorizing Provider cetirizine 10 MG tablet Take 1 tablet (10 mg total) by mouth daily. 01/15/21 Yes Doc [facility] CREON [id number] units capsule TAKE 1 CAPSULE BY MOUTH THREE TIMES DAILY WITH MEALS AND OR SNACKS 10/01/20 Yes Doc [facility] escitalopram (LEXAPRO) 10 MG tablet 12/19/22 Yes Default History Genericprovider VENTOLIN HFA 108 (90 Base) MCG/ACT inhaler INHALE 1 PUFF BY MOUTH EVERY 4 HOURS NEEDED FOR SHORTNESS OF BREATH AND FOR WHEEZING 03/09/20 Yes Doc [facility] Allergies Allergen Reactions General Anesthesia Nausea Only Morphine Rash Sulfa Antibiotics Rash Past Medical History: Diagnosis Date Migraines Seasonal allergies Past Surgical History: Procedure Laterality Date ABDOMINAL HYSTERECTOMY W/ PARTIAL VAGINACTOMY 2007 BREAST REDUCTION BILATERAL 2017 SECTION x2 HC MENISCAL REPAIR 11/05/2020 right knee arthroscopy Social History Socioeconomic History Marital status: Spouse name: Not on file Number of children: Not on file Years of education: Not on file Highest education level: High school graduate Occupational History Not on file Tobacco Use Smoking status: Never Smokeless tobacco: Never Tobacco comments: na Vaping Use Vaping status: Never Used Substance and Sexual Activity Alcohol use: Never Drug use: Never Comment: na Sexual activity: Not on file Other Topics Concern Service Not Asked Blood Transfusions Not Asked Caffeine Concern Not Asked Occupational Exposure Not Asked Hobby Hazards Not Asked Sleep Concern Not Asked Stress Concern Not Asked Weight Concern Not Asked Special Diet Not Asked Back Care Not Asked Exercise Not Asked Bike Helmet Not Asked Seat Belt Not Asked Self-Exams Not Asked Wheelchair Not Asked Walker Not Asked Upper extremity braces/slings Not Asked Lower extermity braces/slings Not Asked Self Care Yes Social History Narrative Lives at home with her family Social Determinants of Health Financial Resource Strain: Not on file Food Insecurity: Not on file Transportation Needs: Not on file Physical Activity: Not on file Stress: Not on file Social Connections: Not on file Intimate Partner Violence: Not on file Housing Stability: Not on file Review of Systems: no changes except specified in HPI, no bladder or bowel incontinence PHYSICAL EXAM Filed Vitals: 10/02/23 1107 BP: 138/76 Pulse: 76 Resp: 18 Temp: 98 ??F (36.7 ??C) TempSrc: Skin SpO2: 99% Weight: 78.1 kg (172 lb 3.2 oz) Height: 1.524 m (5') General: alert, appears stated age and cooperative Skin: normal and no rash or abnormalities HEENT: neck supple with midline trachea Lungs: no respiratory distress Heart: regular rate and rhythm Abdomen: soft Neuro: No focal abnormalities noted ASSESSMENT Lumbar radiculopathy PLAN 47-year-old female seen as a follow-up we will proceed with right L5-S1 lumbar transforaminal injection. Risks including, but not limited to infection, permanent neurological deficit due to nerve root injury, bleeding, anaphylaxis, flushing, cerebral spinal fluid leak, paralysis, spinal cord injury, thinning of the skin, thinning of the bones, muscle cramping. documented in this encounter OR Notes * Op Note - Landon Null MD - 10/02/2023 11:27 AM CDT PROCEDURE: LUMBAR TRANSFORAMINAL EPIDURAL STEROID INJECTION UNDER FLUOROSCOPY LEVELS: Right L5/S1 PREOPERATIVE DIAGNOSIS: LUMBAR RADICULOPATHY POSTOPERATIVE DIAGNOSIS: SAME PREOP SURGEON: LANDON NULL MD RISKS, BENEFITS, ALTERNATE TREATMENTS DISCUSSED. WRITTEN CONSENT OBTAINED. PATIENT TAKEN TO PROCEDURE ROOM PLACED IN PRONE POSITION. PILLOW UNDER ABDOMEN TO REDUCE LUMBAR LORDOSIS. STERILE PREP AND DRAPE OF LUMBOSACRAL SPINE PERFORMED. ASA STANDARD MONITORS APPLIED. Risks including, but not limited to infection, permanent neurological deficit due to nerve root injury, bleeding, anaphylaxis, flushing, cerebral spinal fluid leak, paralysis, spinal cord injury, thinning of the skin, thinning of the bones, muscle cramping. PROCEDURE: VERTEBRAL BODIES WERE SQUARED.. SKIN AND SUBCUTANEOUS TISSUES ANESTHETIZED WITH 1% LIDOCAINE. 22 GAUGE CHIBA NEEDLES WITH BENT TIPS WERE USED. C ARM WAS MOVED TO THE OBLIQUE X RAY VIEW. TARGET FOR L 5-S1 NERVE ROOT IS THE 6 O???CLOCK POSITION OF THE PEDICLE SHADOW IN THE OBLIQUE X RAYVIEW AT THE LEVEL OF L 5-S1 ON THE right SIDE. APPROPRIATE NEEDLE TIP POSITION WAS CONFIRMED IN THE AP,OBLIQUE AND LATERAL VIEWS. AFTER NEGATIVE ASPIRATION, 5 CC OF CONTRAST SPLIT BETWEEN THE ABOVE MENTIONED LEVELS WAS INJECTED IN THE LATERAL VIEW CONFIRMING SPREAD IN THE ANTERIOR EPIDURAL SPACE. NEGATIVE ASPIRATION PRIOR TO 5 CC OF CONTRAST INJECTED IN THE AP VIEW CONFIRMING SPREAD ALONG THE APPROPRIATE NERVE ROOTS ALONG WITH EDIDURAL SPREAD. NO INTRAVASCULAR OR INTRATHECAL UPTAKE NOTED. NEGATIVE ASPIRATION PRIOR TO INJECTION OF 4OMG DEPOMEDROL AND 2 CC OF 0.25% BUPIVACAINE INJECTED PER LEVEL. NEEDLES REMOVED. NO COMPLICATIONS. POST PROCEDURE: PATIENT TOLERATED PROCEDURE WELL AND OBSERVED PRIOR TO DISCHARGE. DISCHARGED IN STABLE CONDITION WITH APPROPRIATE POST-PROCEDURE INSTRUCTIONS. documented in this encounter Plan of Treatment Not on file documented as of this encounter Procedures Procedure Name Priority Date/Time Associated Diagnosis Comments INJECTION EPIDURAL TRANSFORAMINAL 10/02/2023 11:24 AM CDT Radiculopathy, lumbar region XR PAIN CLINIC C-ARM Today 10/02/2023 10:52 AM CDT documented in this encounter Results * XR PAIN CLINIC C-ARM (10/02/2023 10:52 AM CDT) Narrative Radiology, Technologist - 10/02/2023 10:52 AM CDT This report does not contain a radiologist's interpretation. Please review associated procedure and/or operative report. Landon Null MD GENERAL IMAGING Final Result documented in this encounter Visit Diagnoses Not on filedocumented in this encounter Administered Medications Inactive Administered Medications - up to 3 most recent administrations Medication Order MAR Action Action Date Dose Rate Site chlorhexidine (PERIDEX) 0.12 % solution 15 mL 15 mL, Mouth/Throat, PRN, Prior to surgery, 1 dose, Starting on Mon10/02/23 at 1100, Until Mon10/02/23 at 1333, Patient to perform oral care first. Swish/Gargle in mouth for 30 seconds, and then discard, prior to going to surgery/ If ventilated use saturated swab to clean oral cavity., Pre-Op diazePAM (VALIUM) 5 MG tablet 1 dose, Starting on Mon10/02/23 at 1104, Until Mon10/02/23 at 1106, Created by cabinet override diazePAM (VALIUM) tablet 10 mg 10 mg, Oral, Once as needed, Anxiety, 1 dose, Starting on Mon10/02/23 at 1100, Until Mon10/02/23 at 1106, Pre-Op Given 10/02/2023 11:06 AM CDT 10 mg documented in this encounter Active and Recently Administered Medications Times are shown in CDT. PRN Medication Order 09/30/2023 10/01/2023 10/02/2023 BUpivacaine (PF) (MARCAINE) 0.25 % injection (CANCELED) As needed, Starting on Mon10/02/23 at 1126, Until Mon10/02/23 at 1127, Intra-Op 1126 (Given - Provid er: Landon Null MD) chlorhexidine (PERIDEX) 0.12 % solution 15 mL 15 mL, Mouth/Throat, PRN, Prior to surgery, 1 dose, Starting on Mon10/02/23 at 1100, Until Mon10/02/23 at 1333, Patient to perform oral care first. Swish/Gargle in mouth for 30 seconds, and then discard, prior to going to surgery/ If ventilated use saturated swab to clean oral cavity., Pre-Op diazePAM (VALIUM) tablet 10 mg (COMPLETED) 10 mg, Oral, Once as needed, Anxiety, 1 dose, Starting on Mon10/02/23 at 1100, Until Mon10/02/23 at 1106, Pre-Op 1106 (Given - Provid er: Erwin Gillette RN) iopamidol (ISOVUE-M 300) 61 % injection (CANCELED) As needed, Starting on Mon10/02/23 at 1126, Until Mon10/02/23 at 1127, Intra-Op 1126 (Given - Provid er: Landon Null MD) lidocaine (PF) (XYLOCAINE) 1 % injection (CANCELED) As needed, Starting on Mon10/02/23 at 1126, Until Mon10/02/23 at 1127, Intra-Op 1126 (Given - Provid er: Landon Null MD) methylPREDNISolone acetate (DEPO-Medrol) injection (CANCELED) As needed, Starting on Mon10/02/23 at 1126, Until Mon10/02/23 at 1127, Intra-Op 1126 (Given - Provid er: Landon Null MD) documented in this encounter Care Teams Pharmacy Data Analyst Relationship Specialty Start Date End Date Ross Campbell FNP [address] [place] [address] PCP - General Nurse Practitioner Family 02/11/21 documented as of this encounter
--- OUTSIDE RECORDS SUMMARY | 2024-06-07 10:54 | XMS_ITS | Encounter Summary ---
Author Organization [facility] Address [address] [place] [address]. [place], [place] [id number] [place] [address] Care Team Providers Care Procurement Internship Name Role Phone Ross Campbell Primary Care Provider +1- [phone] Encounter Details Date Type Department Care Team (Latest Contact Info) Description 10/02/2023 Travel Social History Tobacco Use Types Packs/Day [...] on filedocumented in this encounter Care Teams Procurement Internship Relationship Specialty Start Date End Date Ross Campbell FNP [address] [place] [address] PCP - General Nurse Practitioner Family 02/11/21 documented as of this encounter
--- OUTSIDE RECORDS SUMMARY | 2024-06-07 10:54 | XMS_ITS | Encounter Summary ---
Author Organization [facility] Address [address] [place] [address]. [place], [place] [id number] [place] [address] Care Team Providers Care Vice President Supply Chain Name Role Phone Ross Campbell Primary Care Provider +1- [phone] Encounter Details Date Type Department Care Team (Latest Contact Info) Description 09/27/2023 Travel Social History Tobacco Use Types Packs/Day [...] on filedocumented in this encounter Care Teams Vice President Supply Chain Relationship Specialty Start Date End Date Ross Campbell FNP [address] [place] [address] PCP - General Nurse Practitioner Family 02/11/21 documented as of this encounter
--- OUTSIDE RECORDS SUMMARY | 2024-06-07 10:54 | XMS_ITS | Encounter Summary ---
Author Organization [facility] Address [address] [place] [address]. [place] [address] [place] [address] Care Team Providers Care Dinkey Engine Firer/Fireman Name Role Phone Ross CampbellP Primary Care Provider +1- [phone] Reason for Visit * Auth/Cert (Routine) Specialty Diagnoses / Procedures Referred By Contac t Referred To Contact Diagnoses Radiculopathy, lumbar region Radiculopathy, lumbar region [M54.16] Procedures INJECTION EPIDURAL TRANSFORAMINAL L5-S1 Landon Null MD [facility] [address] [place] [address] Phone: tel: fax: Referral ID Status Reason Start Date Expiration Date Visits Re quested Visits Authorized [id number] 1 1 Encounter Details Date Type Department Care Team (Late st Contact Info) Description 10/02/2023 11:00 AM CDT - 10/02/2023 11:20 AM CDT Surgery [facility] [place] [address] [id number] Landon Null MD [facility] [address] [place] [address] [id number] INJECTION EPIDURAL TRANSFORAMINAL L5-S1 Surgery Details Date/Time Status Location OR Service Patient Class Case Class Case Type Trauma Case? 10/02/2023 11:00 AM Posted [facility] Pain Proc Rm Pain Medicine Short Stay/Outpa tient Surgery No Panel 1 Procedure LRB Anes Op Region Wound Class Comments INJECTION EPIDURAL TRANSFORAMINAL L5-S1 Right Local Clean RTN PT NO BLOOD THINNERS RIGHT INJECTION EPIDURAL TRANSFORAMINAL L5-S1 WEI CMS WC, AND CIG[employer]. NOTE SENT THAT THIS WAS SCHED. DUE TO WC REFERRED BY Dominick DE JESUS 08/29/2023 SCHED ROBERTO Surgeon Surgeon Role Service Panel Landon Null MD [facility] 1 documented in this encounter Social History Tobacco Use Types Packs/Day Years [...] Sign Reading Time Taken Comments Blood Pressure 138/76 10/02/2023 11:07 AM CDT Pulse 76 10/02/2023 11:07 AM CDT Temperature 36.7 ??C (98 ??F) 10/02/2023 11:07 AM CDT Respiratory Rate 18 10/02/2023 11:07 AM CDT Oxygen Saturation 99% 10/02/2023 11:07 AM CDT Inhaled Oxygen Concentration - - Weight 78.1 kg (172 lb 3.2 oz) 10/02/2023 11:07 AM CDT Height 152.4 cm (5') 10/02/2023 11:07 AM CDT Body Mass Index 33.63 10/02/2023 11:07 AM CDT documented in this encounter Discharge Instructions * Discharge Instructions* Niecy Marin RN - 10/02/2023 11:33 AM CDT [facility] Interventional [facility] Management Discharge Instructions WHAT [...] DOCTOR AND HOW TO REACH US: Call [phone] ext. [phone] for scheduling, insurance questions or speak with [...] Medicare, Medicare replacement plans, and/or Government plans [facility] [place] Commercial plans Your insurance recommends we do [...] PERCENTAGE OF RELIEF IN {[facility] F/U:10007} Please call [phone] Ext. [phone] option 4. You may need to leave [...] mg total) by mouth daily. 01/15/2021 CREON [id number] units capsule TAKE 1 CAPSULE BY MOUTH [...] daily. 01/15/21 Yes Doc [facility] CREON [id number] units capsule TAKE 1 CAPSULE BY MOUTH [...] Result documented in this encounter Visit Diagnoses Diagnosis Radiculopathy, lumbar region Thoracic or lumbosacral neuritis or radiculitis, unspecified documented in this encounter Administered Medications Inactive Administered Medications - up to 3 most recent administrations Medication Order MAR Action Action Date Dose Rate Site BUpivacaine (PF) (MARCAINE) 0.25 % injection As needed, Starting on Mon10/02/23 at 1126, Until Mon10/02/23 at 1127, Intra-Op Given 10/02/2023 11:26 AM CDT 2 mLs chlorhexidine (PERIDEX) 0.12 % solution 15 mL [...] Given 10/02/2023 11:06 AM CDT 10 mg iopamidol (ISOVUE-M 300) 61 % injection As needed, Starting on Mon10/02/23 at 1126, Until Mon10/02/23 at 1127, Intra-Op Given 10/02/2023 11:26 AM CDT 5 mLs lidocaine (PF) (XYLOCAINE) 1 % injection As needed, Starting on Mon10/02/23 at 1126, Until Mon10/02/23 at 1127, Intra-Op Given 10/02/2023 11:26 AM CDT 2 mLs methylPREDNISolone acetate (DEPO-Medrol) injection As needed, Starting on Mon10/02/23 at 1126, Until Mon10/02/23 at 1127, Intra-Op Given 10/02/2023 11:26 AM CDT 80 mg documented in this encounter Active and Recently Administered Medications Times are shown in CDT. PRN Medication Order 09/30/2023 10/01/2023 10/02/2023 BUpivacaine (PF) (MARCAINE) 0.25 % injection (CANCELED) As needed, Starting on Mon10/02/23 at 1126, Until Mon10/02/23 at 1127, Intra-Op 112 (Given - Provid er: Landon Null MD) [...] at 1126, Until Mon10/02/23 at 1127, Intra-Op 112 (Given - Provid er: Landon Null MD) lidocaine (PF) (XYLOCAINE) 1 % injection (CANCELED) As needed, Starting on Mon10/02/23 at 1126, Until Mon10/02/23 at 1127, Intra-Op 112 (Given - Provid er: Landon Null MD) methylPREDNISolone acetate (DEPO-Medrol) injection (CANCELED) As needed, Starting on Mon10/02/23 at 1126, Until Mon10/02/23 at 1127, Intra-Op 1126 (Given - Provid er: Landon Null MD) documented in this encounter Care Teams Dinkey Engine Firer/Fireman Relationship Specialty Start Date End Date Ross Campbell FNP [address] [place] [address] PCP - General Nurse Practitioner Family 02/11/21 documented as of this encounter
--- OUTSIDE RECORDS SUMMARY | 2024-06-07 10:54 | XMS_ITS | Encounter Summary ---
Author Organization [facility] Address [address] [place] [address]. [place], [place] [id number] [place] [id number] Care Team Providers Care News Camera Person Name Role Phone Ross CampbellP Primary Care Provider +1- [phone] Reason for Referral * Imaging (Routine) - Closed Specialty Diagnoses / Procedures Referred By Contac t Referred To Contact RADIOLOGY Diagnoses Radiculopathy, lumbar region Procedures MRI LUMB SPINE WO CON Karen De Jesus MD [address] [place] [address] Phone: tel: fax: Referral ID Status Reason Start Date Expiration Date Visits Re quested Visits Authorized [id number] Closed 08/24/2023 08/23/2024 1 1 Reason for Visit * Imaging (Routine) - Closed Specialty Diagnoses / Procedures Referred By Contac t Referred To Contact RADIOLOGY Diagnoses Radiculopathy, lumbar region Procedures MRI LUMB SPINE WO CON Karen De Jesus MD [address] [place] [address] Phone: tel: fax: Referral ID Status Reason Start Date Expiration Date Visits Re quested Visits Authorized [id number] Closed 08/24/2023 08/23/2024 1 1 Encounter Details Date Type Department Care Team (Late st Contact Info) Description 09/27/2023 12:00 PM CDT - 09/27/2023 11:59 PM CDT Hospital En[facility] [place] [address] Karen De Jesus MD [address] [facility] [place] [address] Discharge Disposition: Home or Self Care (Routine [...] on file documented as of this encounter Medications at Time of Discharge cetirizine 10 MG tablet Take 1 tablet (10 mg total) by mouth daily. 01/15/2021 CREON [id number] units capsule TAKE 1 CAPSULE BY MOUTH THREE TIMES DAILY WITH MEALS AND OR SNACKS 10/01/2020 VENTOLIN HFA 108 (90 Base) MCG/ACT inhaler INHALE 1 PUFF BY MOUTH EVERY 4 HOURS NEEDED FOR SHORTNESS OF BREATH AND FOR WHEEZING 03/09/2020 escitalopram (LEXAPRO) 10 MG tablet 12/19/2022 documented as of this encounter Plan of Treatment Not on file documented as of this encounter Procedures Procedure Name Priority Date/Time Associated Diagnosis Comments MRI LUMB SPINE WO CON Routine 09/27/2023 12:47 PM CDT Radiculopathy, lumbar region documented in this encounter Results * MRI LUMB SPINE [...] By: Mayo Dueñas MD, 10/01/2023 4:51 PM us Karen De Jesus MD MRI Final Resul t documented in this encounter Visit Diagnoses Diagnosis Radiculopathy, lumbar region Thoracic or lumbosacral neuritis or radiculitis, unspecified documented in this encounter Care Teams News Camera Person Relationship Specialty Start Date End Date Ross Campbell, TAWNYA [address] [place] [address] PCP - General Nurse Practitioner Family 02/11/21 documented as of this encounter
--- OUTSIDE RECORDS SUMMARY | 2024-06-07 10:54 | XMS_ITS | Clinical Summary ---
Author Organization [facility] Address [address] [place] [address]. [place] [address] [place] [address] Care Team Providers Care Aircraft Servicer Name Role Phone Ross Campbell Primary Care Provider +1- [phone] Allergies Active Allergy Reactions Criticality Noted Date Comments General Anesthesia Nausea Only 02/11/2021 Morphine Rash Low 02/11/2021 Sulfa Antibiotics Rash Low 02/11/2021 Medications VENTOLIN HFA 108 (90 Base) MCG/ACT inhaler INHALE 1 PUFF BY MOUTH EVERY 4 HOURS NEEDED FOR SHORTNESS OF BREATH AND FOR WHEEZING 0 Active cetirizine 10 MG tablet Take 1 tablet (10 mg total) by mouth daily. 1 Active CREON [id number] units capsule TAKE 1 CAPSULE BY MOUTH THREE TIMES DAILY WITH MEALS AND OR SNACKS 1 Active escitalopram (LEXAPRO) 10 MG tablet 3 Active Active Problems Problem Noted Date Diagnosed Date Radiculopathy of lumbosacral region 09/20/2022 Assessment & Plan (09/20/2022 3:52 PM CDT): Referral to, Dr. De Jesus, neurosurgery for evaluation. Bilateral, superficial, and perineal sensory is absent. Prescription for Alpha lipoic acid, CoQ10, and complex Vitamin B sent to the pharmacy. Will see her back as needed. Numbness and tingling of right lower extremity 0 07/07/2021 Assessment & Plan (05/28/2022 8:07 PM STENCIL CUTTER MACHINE): Previous MRI is not available for review at this time. Recommend EMG/NCV. Mother now diagnosed with ALS Assessment & Plan (12/15/2021 7:06 PM CDT): Positive low back pain. History of scoliosis. Tingling down the right leg after few steps. No relief with steroids to the knee. Toes go numb. Recommend MRI for the lumbar spine. Assessment & Plan (07/07/2021 2:43 PM STENCIL CUTTER MACHINE): Centered around her knee. States it will radiate up and down. Mostly over the peroneal nerve. Consider peroneal entrapment. Will end up trying to get a EMG/NCV to see if there is any peroneal entrapment. If that shows any radicular issues may need to consider MRI to the lumbar spine. Chronic right-sided low back pain with right-patricia ed sciatica 07/07/2021 Assessment & Plan (07/07/2021 2:44 PM STENCIL CUTTER MACHINE): Might consider MRI to the lumbar spine if EMG NCV warrants Primary osteoarthritis of right knee 02/14/2021 Assessment & Plan (05/28/2022 8:06 PM STENCIL CUTTER MACHINE): We discussed the risks, benefits and alternatives. The only thing proven to slow the progression of osteoarthritis is weight loss. Every pound lost relieves 4 to 6 pounds of stress across the knee. We discussed unloading braces. Formal physical therapy to help with flexibility, mobility and strength. We discussed TENS units. Nonsteroidal anti-inflammatories as well as Tylenol and pain medication and their side effects. We discussed steroid versus Visco supplement injection. We discussed eventual total knee arthroplasty. Assessment & Plan (12/15/2021 7:07 PM CDT): We discussed the risks, benefits and alternatives. The only thing proven to slow the progression of osteoarthritis is weight loss. Every pound lost relieves 4 to 6 pounds of stress across the knee. We discussed unloading braces. Formal physical therapy to help with flexibility, mobility and strength. We discussed TENS units. Nonsteroidal anti-inflammatories as well as Tylenol and pain medication and their side effects. We discussed steroid versus Visco supplement injection. We discussed eventual total knee arthroplasty. Still complains of swelling. No relief with steroid injections will evaluate the low back. Assessment & Plan (07/07/2021 2:45 PM STENCIL CUTTER MACHINE): We discussed the risks, benefits and alternatives. The only thing proven to slow the progression of osteoarthritis is weight loss. Every pound lost relieves 4 to 6 pounds of stress across the knee. We discussed unloading braces. Formal physical therapy to help with flexibility, mobility and strength. We discussed TENS units. Nonsteroidal anti-inflammatories as well as Tylenol and pain medication and their side effects. We discussed steroid versus Visco supplement injection. We discussed eventual total knee arthroplasty. Assessment & Plan (04/07/2021 12:41 PM CDT): We discussed the risks, benefits and alternatives. At this point in time we have had a difficult time getting approval for Visco supplement and work hardening. Will repeat the request for preapproval for viscosupplementation. Repeat the request for work hardening program. I understand that the arthritis was not caused by the injury but was certainly aggravated by the injury. Hopefully we can get these approved and will call her to let her reschedule an appointment. Assessment & Plan (03/09/2021 6:56 PM CDT): We discussed the risks, benefits and alternatives. The only thing proven to slow the progression of osteoarthritis is weight loss. Every pound lost relieves 4 to 6 pounds of stress across the knee. We discussed unloading braces. Formal physical therapy to help with flexibility, mobility and strength. We discussed TENS units. Nonsteroidal anti-inflammatories as well as Tylenol and pain medication and their side effects. We discussed steroid versus Visco supplement injection. We discussed eventual total knee arthroplasty. Steroid injected today Resume diclofenac Still trying to get approval for physical therapy and work hardening Try to get approval for viscosupplementation Follow-up in 6 weeks Work note for avoid kneeling, squatting, running, stairs. Assessment & Plan (02/14/2021 9:58 AM CDT): We discussed the risks, benefits and alternatives. The only thing proven to slow the progression of osteoarthritis is weight loss. Every pound lost relieves 4 to 6 pounds of stress across the knee. We discussed unloading braces. Formal physical therapy to help with flexibility, mobility and strength. We discussed TENS units. Nonsteroidal anti-inflammatories as well as Tylenol and pain medication and their side effects. We discussed steroid versus Visco supplement injection. We discussed eventual total knee arthroplasty. After going over the risks, benefits and alternatives begin diclofenac 75 mg twice daily. Begin formal physical therapy. Preapproval for viscosupplementation. Follow-up in 6 weeks BMI 31.0-31.9,adult 02/14/2021 Assessment & Plan (05/28/2022 8:07 PM STENCIL CUTTER MACHINE): Patient is down 1 BMI point and encouraged to continue Assessment & Plan (12/15/2021 7:06 PM CDT): We discussed the adverse effects of weight on osteoarthritis of the knee. For every 1 pound loss, 4 to 6 pounds of stress is relieved from the knee. We discussed low carbohydrate diet to help with weight loss. 80% of weight loss is through diet. Assessment & Plan (04/07/2021 12:41 PM CDT): We discussed the adverse effects of weight on osteoarthritis of the knee. For every 1 pound loss, 4 to 6 pounds of stress is relieved from the knee. We discussed low carbohydrate diet to help with weight loss. 80% of weight loss is through diet. Assessment & Plan (03/09/2021 6:57 PM CDT): We discussed the adverse effects of weight on osteoarthritis of the knee. For every 1 pound loss, 4 to 6 pounds of stress is relieved from the knee. We discussed low carbohydrate diet to help with weight loss. 80% of weight loss is through diet. Assessment & Plan (02/14/2021 9:58 AM CDT): We discussed the adverse effects of weight on osteoarthritis of the knee. For every 1 pound loss, 4 to 6 pounds of stress is relieved from the knee. We discussed low carbohydrate diet to help with weight loss. 80% of weight loss is through diet. History of arthroscopy of right knee 02/14/2021 Assessment & Plan (07/07/2021 2:44 PM STENCIL CUTTER MACHINE): Patient is scheduled for MR arthrogram of the knee. Assessment & Plan (02/14/2021 9:59 AM CDT): We discussed the risks, benefits and alternatives. No need for further surgery. Begin diclofenac. Begin formal physical therapy with work hardening. May require functional capacity evaluation after finishing work hardening program Family History Medical History Relation Comments Heart Disease Mother Recently dx w/ A LS 03/26 Relation Status Comments Mother Social History Tobacco Use Types Packs/Day Years [...] on file Sexual Orientation Not on file Last Filed Vital Signs Vital Sign Reading [...] Mass Index 33.63 10/02/2023 11:07 AM CDT Plan of Treatment Health Maintenance Due Date Last Done Comments Colorectal Cancer Screening Colonoscopy (10 Years) 1977 Annual Physical 1980 Hepatitis C 10/17/1995 DTaP, Tdap and Td Vaccines ( 1 - Tdap) 1996 Hepatitis B Vaccines (1 of 3 - 19+ 3-dose series) 1996 Mammogram Screening 2017 COVID-19 Vaccine ( - 2023-2 5 season) 2024 Influenza Adult (#1) 2024 Meningococcal Vaccine Aged Out No karen jaime eligible based on patient's age to complete this topic Pneumococcal Vaccine: Pediat rics (0 to 5 Years) and At-Risk Patients (6 to 64 Years) Aged Out No longer eligible b ased on patient's age to complete this topic RSV Immunizations Under 20 Months Aged Out No longer eligible based on patient's age to complete this topic Insurance [employer] [facility] Care Teams Aircraft Servicer Relationship Specialty Start Date End Date Ross Campbell FNP [address] [place] [address] PCP - General Nurse Practitioner Family 02/11/21
--- OUTSIDE RECORDS SUMMARY | 2024-06-07 10:55 | XMS_ITS | Encounter Summary ---
Author Organization [facility] Address [address] [place] [address]. [place], [place] [address] [place] [address] Care Team Providers Care Benefits Analyst Name Role Phone Ross Campbell Primary Care Provider +1- [phone] Reason for Visit * Reason Onset Date Comments Prior Authorization 03/17/2023 Encounter Details Date Type Department Care Team (Late st Contact Info) Description 03/17/[address] [facility] [place] [address] [id number] Darya Castillo CNA Prior Authorization Social History Tobacco Use Types Packs/Day Years Used Date Smoking Tobacco: Never Smokeless Tobacco: Never Comments:na Alcohol Use Standard Drinks/Week Comments Never 0 (1 standard drink = 0.6 oz pur e alcohol) PHQ-2 Answer Date Recorded Patient Health Questionnaire-2 Score 0 09/19/2022 Comments No Sex and Gender Information Value Date Recorded Sex Assigned at Not on file Legal Sex Female 8:23 PM CDT Gender Identity Not on file Sexual Orientation Not on file documented as of this encounter Progress Notes * Darya Castillo CNA - 03/17/2023 8:52 AM CDT CALLED AND INFORMED PATIENT THAT HER APPT SCHED FOR 03/21/23 [facility]. PATIENT EXPRESSED VERBAL UNDERSTANDING AND IS AWARE WE WILL BE CANCELLING HER APPT IF WEDO NOT RECEIVE AN AUTHORIZATION BY Monday03/20/23 KD documented in this encounter Plan of Treatment Not on file documented as of this encounter Visit Diagnoses Not on filedocumented in this encounter Care Teams Benefits Analyst Relationship Specialty Start Date End Date Ross Campbell FNP [address] [place] [address] PCP - General Nurse Practitioner Family 02/11/21 documented as of this encounter
--- OUTSIDE RECORDS SUMMARY | 2024-06-07 10:55 | XMS_ITS | Encounter Summary ---
Author Organization [facility] Address [address] [place] [address]. [place], [place] [id number] [place] [address] Care Team Providers Care Environmental Services Aide Name Role Phone Ross Campbell Primary Care Provider +1- [phone] Reason for Visit * Auth/Cert (Routine) Specialty Diagnoses / Procedures Referred By Contac t Referred To Contact Diagnoses Radiculopathy, lumbar region Procedures INJECTION EPIDURAL TRANSFORAMINAL L4-5 Landon Null MD Three [facility] [address] [place] [address] Phone: tel: fax: Referral ID Status Reason Start Date Expiration Date Visits Re quested Visits Authorized [id number] 1 1 Encounter Details Date Type Department Care Team (Late st Contact Info) Description 03/21/2023 1:20 PM CDT - 03/21/2023 1:40 PM CDT Surgery [facility] [place]ventional [place] [address] [id number] Landon Null MD [facility] [address] [place] [address] [phone] INJECTION EPIDURAL TRANSFORAMINAL L4-5 Surgery Details Date/Time Status Location OR Service Patient Class Case Class Case Type Trauma Case? 03/21/2023 1:20 PM Posted [facility] Pain Mgmt Pain Proc Rm Pain Medicine Short Stay/Outpa tient Surgery No Panel 1 Procedure LRB Anes Op Region Wound Class Comments INJECTION EPIDURAL TRANSFORAMINAL L4-5 Right Local Back Clean NW PT, MAILED NPQ, REF BY RAMONA, INJECTION EPIDURAL TRANSFORAMINAL L4-5, #1 SCHED #2 FOLLOWED BY L5-S1 TRANSFORAMINAL BLOCK, NO BT, WC/[employer], SCHED 03/07/2023 CW Surgeon Surgeon Role Service Panel Landon Null [...] Sign Reading Time Taken Comments Blood Pressure 122/69 03/21/2023 1:01 PM CDT Pulse 83 03/21/2023 1:01 PM CDT Temperature 36.8 ??C (98.2 ??F) 03/21/2023 1 2:16 PM CDT Respiratory Rate 18 03/21/2023 1:01 PM CDT Oxygen Saturation 100% 03/21/2023 1:01 PM CDT Inhaled Oxygen Concentration - - Weight 75.7 kg (166 lb 12.8 oz) 023 12:16 PM CDT Height 152.4 cm (5') 03/21/2023 12:16 PM CDT Body Mass Index 32.58 03/21/2023 12:16 PM CDT documented in this encounter Discharge Instructions * Discharge Instructions* Radha Thomas RN - 03/21/2023 12:56 PM CDT [place] Interventional Pain Management Discharge Instructions FOLLOW UP WITH DR. DE JESUS WHAT TO DO TODAY: Limit your activity [...] morning and you may shower. WHAT TO EXPECT OVER THE NEXT FEW [...] DOCTOR AND HOW TO REACH US: Call [phone] ext. [phone] for scheduling, insurance questions or speak with [...] PLEASE GO TO THE EMERGENCY ROOM IMMEDIATELY! documented in this encounter Medications at Time of Discharge cetirizine 10 MG tablet Take 1 tablet (10 mg total) by mouth daily. 01/15/2021 CREON [id number] units capsule TAKE 1 CAPSULE BY MOUTH THREE TIMES DAILY WITH MEALS AND OR SNACKS 10/01/2020 VENTOLIN HFA 108 (90 Base) MCG/ACT inhaler INHALE 1 PUFF BY MOUTH EVERY 4 HOURS NEEDED FOR SHORTNESS OF BREATH AND FOR WHEEZING 03/09/2020 escitalopram (LEXAPRO) 10 MG tablet 12/19/2022 cyclobenzaprine 10 MG tablet Take 1 tablet (10 mg total) by mouth 3 (three) times daily as needed for Muscle Spasms. 3 montelukast 10 MG tablet Take 1 tablet (10 mg total) by mouth daily. 01/15/2021 3 UBRELVY 50 MG tablet TAKE 1 TABLET BY MOUTH SINGLE DOSE. MAY REPEAT ONCE AFTER 2 HOURS IF NEEDED. 01/26/2021 3 valACYclovir 1 g tablet TAKE 1 TABLET BY MOUTH EVERY 8 HOURS FOR 7 DAYS 02/19/2021 3 documented as of this encounter H&P Notes * Landon Null MD - 03/21/2023 12:42 PM CDTSummary: Low back pain with pain, numbness, tingling radiating down the right leg Interventional Pain Management History & Physical Referring Provider: Osmani De Jesus MD Chief Complaint: Low back pain with pain, numbness, tingling radiating down the right leg HPI: Amelia Schneider is a 47-year-old female who is seen today as a new patient as referred by Osmani De Jesus MD with consideration for right L4-5 lumbar transforaminal epidural steroid injection to be followed by right L5-S1 lumbar transforaminal epidural steroid injection to be completed in a separate session. She has experienced low back pain since June 2020. She said she was working at [employer], was carrying some lab coats and tripped over a pallet landing on her right side. She saidshe immediately reported the injury to her global category manager, and underwent evaluation at urgent care. She says that time x-rays were completed of the right knee and she subsequently underwent right knee surgery completed by orthopedic provider, Dr. Ayers on December 05, 2020. She does report some ongoing swellingto the lateral right knee. She said she ultimately lost her job at [employer] following the injury. 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 She rates her pain today as 8 on a 0-to-10 scale, with an overall average of 8 on a 0-to-10 scale pain level, worst pain being 9 on a 0-to-10 scale pain level, least pain being 7 on a 0-to-10 scale. She describes pain as shooting, aching, sharp, burning, moderate, constant, about the same over time. Associated symptoms includes the numbness and tingling, as well as a sensation of itching to the right leg and right leg weakness. She denies urinary or bowel incontinence, denies anesthesia to the saddle region. She said her pain is worsened with rolling in bed, standing, exercise, taking stairs, driving, sitting, walking. She said nothing alleviates her pain. She has tried occupational therapy, as well as application of cold and heat. She is also tried cyclobenzaprine, valacyclovir, ibuprofen, Tylenol. Past Medical History: Diagnosis Date Migraines Seasonal allergies Past Surgical History: Procedure Laterality Date ABDOMINAL HYSTERECTOMY W/ PARTIAL VAGINACTOMY 2007 BREAST REDUCTION BILATERAL 2017 SECTION x2 HC MENISCAL REPAIR 11/05/2020 right knee arthroscopy Medications Prior to Admission Medication Sig Dispense Refill cetirizine 10 MG tablet Take 1 tablet (10 mg total) by mouth daily. CREON [id number] units capsule TAKE 1 CAPSULE BY MOUTH THREE TIMES DAILY WITH MEALS AND OR SNACKS cyclobenzaprine 10 MG tablet Take 1 tablet (10 mg total) by mouth 3 (three) times daily as needed for Muscle Spasms. montelukast 10 MG tablet Take 1 tablet (10 mg total) by mouth daily. UBRELVY 50 MG tablet TAKE 1 TABLET BY MOUTH SINGLE DOSE. MAY REPEAT ONCE AFTER 2 HOURS IF NEEDED. valACYclovir 1 g tablet TAKE 1 TABLET BY MOUTH EVERY 8 HOURS FOR 7 DAYS VENTOLIN HFA 108 (90 Base) MCG/ACT inhaler INHALE 1 PUFF BY MOUTH EVERY 4 HOURS NEEDED FOR SHORTNESS OF BREATH AND FOR WHEEZING Allergies Allergen Reactions General Anesthesia Nausea Only Morphine Rash Sulfa Antibiotics Rash Social History Socioeconomic History Marital status: Spouse name: Not on file Number of children: Not on file Years of education: Not on file Highest education level: High school graduate Occupational History Not on file Tobacco Use Smoking status: Never Smokeless tobacco: Never Tobacco comments: na Vaping Use Vaping Use: Never used Substance and Sexual Activity Alcohol use: Never [...] on file Housing Stability: Not on file Family History Problem Relation Name Age of Onset Heart Disease Mother Recently dx w/ ALS 03/26 Review of Systems Constitutional: Alternating weight gain and loss. Disturbed sleeping habits due to her pain. HENT: Sinusitis Eyes: Negative. Cardiovascular: Negative. Gastrointestinal: She experiences diarrhea. She denies incontinence of bowels. Endocrine: Negative. Genitourinary: Negative. Musculoskeletal: Seen today as referred by Osmani De Jesus MD with consideration for right L4-5 lumbar transforaminal epidural steroid injection to be followed by right L5-S1 lumbar transforaminal epidural steroid injection to be completed in a separate session Skin: Negative. Allergic/Immunologic: Negative. Neurological: Headaches. Numbness and tingling, as well as a sensation of itching to the right leg. Hematological: Negative. Psychiatric/Behavioral: Anxiety Filed Vitals: 03/21/23 1216 BP: 134/83 Pulse: 90 Resp: 18 Temp: 98.2 ??F (36.8 ??C) TempSrc: Temporal SpO2: 100% Weight: 75.7 kg (166 lb 12.8 oz) Height: 1.524 m (5') Diagnostic Workup: She had an MRI lumbar spine and the principal findings are mild degenerative changes at L4-5 where there is mild canal stenosis and mild bilateral foraminal stenosis. Mild canal stenosis at L5-S1. 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 Chronic right L5-S1 radiculopathy. Physical Exam Body mass index is 32.58 kg/m??. The patient is alert and oriented x 3 and follows directions and answers questions appropriately. Her skin is warm and dry. Mood and affect: Calm, pleasant, and cooperative. General examination of her heart, lungs and abdomen was unremarkable. The patient rises fromthe seated position without difficulty. Her gait is antalgic favoring the right lower extremity, she is able to perform heel and toe walk no scarring, redness, lesions, or sign of infection noted to the lumbar region. She denies pain to deep palpation across the lumbar facets. No pain to palpation of the SI joints. Range of motion of her back is limited with extension. Sitting straight leg lift is negative bilaterally. Motor strength to lower extremities is 5/5 with hip flexion, knee extension and flexion, ankle dorsiflexion, plantar flexion and hallux extension bilaterally. No color change, redness, warmth, or discrepancy in calf size noted to the lower extremities. Sensation to light palpation of the lower extremities is equal and intact bilaterally. No clonus and downgoing Babinski's bilaterally. Patellar and achilles reflexes are 2/4 bilaterally. Dorsalis pedis pulses are +2 bilaterally. Capillary refill of the lower extremities is less than 3 seconds bilaterally. Impression: Lumbar radiculopathy Recommendations: Amelia Schneider is a 47-year-old female patient seen today as referred by Osmani De Jesus MDwith consideration for right L4-5 lumbar transforaminal epidural steroid injection to be followed by right L5-S1 lumbar transforaminal epidural steroid injection to be completed in a separate session. She has been experiencing low back pain with pain, numbness, tingling radiating down the right leg. We discussed a right L4-5 lumbar transforaminal epidural steroid as a treatment option. The procedure was described in detail as were the risks, benefits and alternative treatments were reviewed; risks including, but not limited to infection, elevations in blood glucose levels, permanent neurological deficit due to nerve root injury, bleeding, anaphylaxis, flushing, cerebral spinal fluid leak, paralysis, spinal cord injury, thinning of the skin, thinning of the bones, muscle cramping, were discussed, and patient verbalized understanding. She is agreeable to a plan to move forward with the lumbar transforaminal epidural steroid injection procedure, which will be completed by Dr. Null today, will return to undergo the right L5-S1 lumbar transforaminal epidural steroid injection at her next office visit. It was my pleasure to participate in her care. Thank you for referring this very pleasant patient. 45 minutes spent in medical record review, imaging review, evaluation and discussion with patient. DANYELL JACOME CC: Osmani De Jesus MD documented in this encounter OR Notes * Op Note - Landon Null MD - 03/21/2023 1:06 PM CDT PROCEDURE: LUMBAR TRANSFORAMINAL EPIDURAL STEROID INJECTION UNDER FLUOROSCOPY LEVELS: Right L4-5 PREOPERATIVE DIAGNOSIS: LUMBAR RADICULOPATHY POSTOPERATIVE DIAGNOSIS: SAME [...] OBLIQUE X RAY VIEW. TARGET FOR L 4-5 NERVE ROOT IS THE 6 O???CLOCK POSITION OF THE PEDICLE SHADOW IN THE OBLIQUE X RAY VIEW AT THE LEVEL OF L 4-5 ON THE right SIDE. APPROPRIATE NEEDLE TIP [...] Date/Time Associated Diagnosis Comments INJECTION EPIDURAL TRANSFORAMINAL 03/21/2023 12:55 PM CDT Radiculopathy, lumbar region XR PAIN CLINIC C-ARM Today 03/21/2023 11:49 AM CDT documented in this encounter Results * XR PAIN CLINIC C-ARM (03/21/2023 11:49 AM CDT) Narrative Radiology, Technologist - 03/21/2023 11:49 AM CDT This report does not contain [...] 0.25 % injection As needed, Starting on Mon03/21/23 at 1258, Until Mon03/21/23 at 1302, Intra-Op Given 03/21/2023 12:58 PM CDT 2 mLs chlorhexidine (PERIDEX) 0.12 % solution 15 mL 15 mL, Mouth/Throat, PRN, Prior to surgery, 1 dose, Starting on Mon03/21/23 at 1219, Until Mon03/21/23 at 1518, Patient to perform oral care first. Swish/Gargle in mouth for 30 seconds, and then discard, prior to going to surgery/ If ventilated use saturated swab to clean oral cavity., Pre-Op diazePAM (VALIUM) 5 MG tablet 1 dose, Starting on Mon03/21/23 at 1211, Until Mon03/21/23 at 1220, Created by cabinet override diazePAM (VALIUM) tablet 10 mg 10 mg, Oral, Once as needed, Anxiety, 1 dose, Starting on Mon03/21/23 at 1219, Until Mon03/21/23 at 1220, Pre-Op Given 03/21/2023 12:20 PM CDT 10 mg iopamidol (ISOVUE-M 300) 61 % injection As needed, Starting on Mon03/21/23 at 1258, Until Mon03/21/23 at 1302, Intra-Op Given 03/21/2023 12:58 PM CDT 5 mLs lidocaine (PF) (XYLOCAINE) 1 % injection As needed, Starting on Mon03/21/23 at 1259, Until Mon03/21/23 at 1302, Intra-Op Given 03/21/2023 12:59 PM CDT 2 mLs methylPREDNISolone acetate (DEPO-Medrol) injection As needed, Starting on Mon03/21/23 at 1259, Until Mon03/21/23 at 1302, Intra-Op Given 03/21/2023 12:59 PM CDT 80 mg Back documented in this encounter Active and Recently Administered Medications Times are shown in CDT. PRN Medication Order 03/19/2023 03/20/2023 03/21/2023 BUpivacaine (PF) (MARCAINE) 0.25 % injection (CANCELED) As needed, Starting on Mon03/21/23 at 1258, Until Mon03/21/23 at 1302, Intra-Op 1258 (Given - Provid er: Landon Null MD) chlorhexidine (PERIDEX) 0.12 % solution 15 mL 15 mL, Mouth/Throat, PRN, Prior to surgery, 1 dose, Starting on Mon03/21/23 at 1219, Until Mon03/21/23 at 1518, Patient to perform oral care first. Swish/Gargle in mouth for 30 seconds, and then discard, prior to going to surgery/ If ventilated use saturated swab to clean oral cavity., Pre-Op diazePAM (VALIUM) tablet 10 mg (COMPLETED) 10 mg, Oral, Once as needed, Anxiety, 1 dose, Starting on Mon03/21/23 at 1219, Until Mon03/21/23 at 1220, Pre-Op 1220 (Given - Provid er: Lauren Elizalde RN) iopamidol (ISOVUE-M 300) 61 % injection (CANCELED) As needed, Starting on Mon03/21/23 at 1258, Until Mon03/21/23 at 1302, Intra-Op 1258 (Given - Provid er: Landon Null MD) lidocaine (PF) (XYLOCAINE) 1 % injection (CANCELED) As needed, Starting on Mon03/21/23 at 1259, Until Mon03/21/23 at 1302, Intra-Op 1259 (Given - Provid er: Landon Null MD) methylPREDNISolone acetate (DEPO-Medrol) injection (CANCELED) As needed, Starting on Mon03/21/23 at 1259, Until Mon03/21/23 at 1302, Intra-Op 1259 (Given - Provid er: Landon Null MD) documented in this encounter Care Teams Environmental Services Aide Relationship Specialty Start Date End Date Ross Campbell FNP [address] [place] [address] PCP - General Nurse Practitioner Family 02/11/21 documented as of this encounter
--- OUTSIDE RECORDS SUMMARY | 2024-06-07 10:55 | XMS_ITS | Encounter Summary ---
Author Organization [facility] Address [address] [place] [address]. [place], [place] [address] [place] [address] Care Team Providers Care Split And Drum Room Supervisor Name Role Phone Ross Campbell Primary Care Provider +1- [phone] Reason for Referral * Surgical (Routine) - Closed Specialty Diagnoses / Procedures Referred By Jodi alcantara Referred To Contact Diagnoses Radiculopathy of lumbosacral region Procedures Case request operating room: BLOCK TRANSFORAMINAL/SELECTIVE NERVE ROOT l5-s1 Landon Null MD [facility] [address] [place] [address] Phone: tel: fax: Referral ID Status Reason Start Date Expiration Date Visits Re quested Visits Authorized [id number] Closed 03/21/2023 03/21/2024 1 1 Reason for Visit * Auth/Cert (Routine) Specialty Diagnoses / Procedures Referred By Jodi alcantara Referred To Contact Diagnoses Radiculopathy, lumbar region Procedures INJECTION EPIDURAL TRANSFORAMINAL L4-5 Landon Null MD [facility] [address] [place] [address] Phone: tel: fax: Referral ID Status Reason Start Date Expiration Date Visits Re quested Visits Authorized [id number] 1 1 Encounter Details Date Type Department Care Team (Latest Contact Info) Description 03/21/2023 11:43 AM CDT - 03/21/2023 1:17 PM CDT Hospital Encounter [facility] Interventional Pain [place] [address] [phone] Landon Null MD [facility] [address] [place] [address] Discharge Disposition: Home or Self Care (Routine [...] Thomas RN - 03/21/2023 12:56 PM CDT [place] Interventional Pain Management Discharge Instructions FOLLOW [...] DOCTOR AND HOW TO REACH US: Call [phone] for scheduling, insurance questions or speak with [...] mg total) by mouth daily. 01/15/2021 CREON [id number] units capsule TAKE 1 CAPSULE BY MOUTH [...] 2020. She said she was working at [employer], was carrying some lab coats and tripped over a pallet landing on her right side. She saidshe immediately reported the injury to her real estate sales manager, and underwent evaluation at urgent care. She says that time x-rays were completed of the right knee and she subsequently underwent right knee surgery completed by orthopedic provider, Dr. Ayers on December 05, 2020. She does report some ongoing swellingto the lateral right knee. She said she ultimately lost her job at [employer] following the injury. 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 She rates her pain today as 8 [...] (10 mg total) by mouth daily. CREON [id number] units capsule TAKE 1 CAPSULE BY MOUTH [...] Please review associated procedure and/or operative report. us Landon Naseer MD GENERAL IMAGING Final Result documented in this encounter Visit Diagnoses Diagnosis Radiculopathy of lumbosacral region- Primary Thoracic or lumbosacral neuritis or [...] Given 03/21/2023 12:20 PM CDT 10 mg documented in this encounter [...] MD) documented in this encounter Care Teams Split And Drum Room Supervisor Relationship Specialty Start Date End Date Ross Campbell, TAWNYA [address] [place] [address] PCP - General Nurse Practitioner Family 02/11/21 documented as of this encounter
--- OUTSIDE RECORDS SUMMARY | 2024-06-07 10:55 | XMS_ITS | Encounter Summary ---
Author Organization [facility] Address [address] [place] [address]. [place] [address] [place] [address] Care Team Providers Care Guard Dance Hall Name Role Phone Ross Campbell Primary Care Provider +1- [phone] Reason for Visit * Reason Onset Date Comments Prior Authorization 03/20/2023 Encounter Details Date Type Department Care Team (Late st Contact Info) Description 03/20/2023 Telephone [facility] Interventional [place] [address] [phone] hSania Hay RNsetter juice packaging machines Social History Tobacco Use Types Packs/Day Years [...] as of this encounter Progress Notes * Shania Hay RN - 03/20/2023 10:08 AM CDT I CALLED PT TO ADVISE THAT WORK COMP HAD NOT GIVEN PRIOR AUTH YET FOR HER INJ. I ADVISED THAT IF NOT REIMBURSED BY THEM, WE WOULD SEND THROUGH HER MEDICAL INSURANCE. PT VERBALIZED UNDERSTANDING, REPORTS THAT SHE IS OKAY WITH THAT PLAN, SHE WOULD JUST SEND BILL TO HER CAMPAIGN MANAGER, AND SHE DID STILL WANT TO COME FOR TOMORROW'S INJECTION. documented in this encounter Plan of Treatment Not on file documented as of this encounter Visit Diagnoses Not on filedocumented in this encounter Care Teams Guard Dance Hall Relationship Specialty Start Date End Date Ross Campbell FNP [address] [place] [address] PCP - General Nurse Practitioner Family 02/11/21 documented as of this encounter
--- OUTSIDE RECORDS SUMMARY | 2024-06-07 10:55 | XMS_ITS | Encounter Summary ---
Author Organization [facility] Address [address] [place] [address]. [place] [address] [place] [address] Care Team Providers Care Web Content Coordinator Name Role Phone Ross Campbell Primary Care Provider +1- [phone] Reason for Visit * Reason Onset Date Comments Answer Questions 06/21/2022 Encounter Details Date Type Department Care Team (Late st Contact Info) Description 06/21/2022 Telephone [facility] Orthopedic Surgery[facility] [address] [place], [place] [id number] [place] [address] [place] [address] Answer Questions Social History Tobacco Use Types Packs/Day Years Used Date Smoking Tobacco: Never Smokeless Tobacco: Never Alcohol Use Standard Drinks/Week Comments Never 0 (1 standard drink = 0.6 oz pur e alcohol) Comments No Sex and Gender Information Value Date Recorded Sex Assigned at Not on file Legal Sex Female 8:23 PM CDT Gender Identity Not on file Sexual Orientation Not on file COVID-19 Exposure Response Date Recorded In the last 10 days, have yo u been in contact with someone who was confirmed or suspected to have Coronavirus/COVID-19? No / Unsure 05/25/2022 1:17 PM RN REVIEW documented as of this encounter Progress Notes * Vidya Blair RN - 06/22/2022 11:58 AM CST Amelia asking if there is still an order in her chart for a right knee xray as she is planning on doing that early next week so that it can be completed prior to her upcoming shock treatment/therapy. Advised Amelia that the right knee xray order is in her chart and she can come and get that xray at any time REVIEW * Vidya Blair RN - 06/22/2022 10:32 AM CST Left a voice message asking the patient to return my call. REVIEW * Karma Ramirez - 06/21/2022 3:06 PM CST Patient called with lots of questions about her right knee. Give her a call, thanks! REVIEW documented in this encounter Plan of Treatment Not on file documented as of this encounter Visit Diagnoses Not on filedocumented in this encounter Care Teams Web Content Coordinator Relationship Specialty Start Date End Date Ross Campbell, DRY CHAIN OFFBEARER [address] [place] [address] PCP - General Nurse Practitioner Family 02/11/21 documented as of this encounter
--- OUTSIDE RECORDS SUMMARY | 2024-06-07 10:55 | XMS_ITS | Encounter Summary ---
Author Organization [facility] Address [address] [place] [address]. [place], [place] [id number] [place] [address] Care Team Providers Care Family Day Care Provider Name Role Phone Ross Campbell Primary Care Provider +1- [phone] Encounter Details Date Type Department Care Team (Latest Contact Info) Description 03/03/2023 Travel Social History Tobacco Use Types Packs/Day [...] on filedocumented in this encounter Care Teams Family Day Care Provider Relationship Specialty Start Date End Date Ross Campbell FNP [address] [place] [address] PCP - General Nurse Practitioner Family 02/11/21 documented as of this encounter
--- OUTSIDE RECORDS SUMMARY | 2024-06-07 10:55 | XMS_ITS | Encounter Summary ---
Author Organization [facility] Address [address] [place] [address]. [place], [place] [id number] [place] [address] Care Team Providers Care Airbrush Artist Technical Name Role Phone Ross Campbell Primary Care Provider +1- [phone] Reason for Visit * Auth/Cert (Routine) Specialty Diagnoses / Procedures Referred By Contac t Referred To Contact Diagnoses Radiculopathy of lumbosacral region lr Procedures BLOCK TRANSFORAMINAL/SELECTIVE NERVE ROOT l5-s1 Landon Null MD Three [facility] [address] [place] [address] Phone: tel: fax: Referral ID Status Reason Start Date Expiration Date Visits Re quested Visits Authorized [id number] 1 1 Encounter Details Date Type Department Care Team (Latest Contact Info) Description 04/13/2023 9:13 AM HOP SORTER - 04/13/2023 10:15 AM [facility] Hospital Encounter [facility] [place] [address] [id number] Landon Null MD Three [facility] [address] [place] [address] [phone] Discharge Disposition: Home or Self Care (Routine [...] Sign Reading Time Taken Comments Blood Pressure 127/82 04/13/2023 10:02 AM HOP SORTER Pulse 90 04/13/2023 10:02 AM HOP SORTER Temperature 36.1 ??C (96.9 ??F) 04/13/2023 9:36 AM CS T Respiratory Rate 18 04/13/2023 10:02 AM HOP SORTER Oxygen Saturation 100% 04/13/2023 10:02 AM HOP SORTER Inhaled Oxygen Concentration - - Weight 75.3 kg (166 lb) 04/13/2023 9:36 AM HOP SORTER Height 152.4 cm (5') 04/13/2023 9:36 AM HOP SORTER Body Mass Index 32.42 04/13/2023 9:36 AM HOP SORTER documented in this encounter Discharge Instructions * Discharge Instructions* Radha Thomas RN - 04/13/2023 10:10 AM HOP SORTER [place] Management Discharge Instructions FOLLOW UP WITH DR DE JESUS WHAT TO DO TODAY: Limit [...] DOCTOR AND HOW TO REACH US: Call [phone] [phone] for scheduling, insurance questions or speak with [...] PLEASE GO TO THE EMERGENCY ROOM IMMEDIATELY! SORTER SORTER documented in this encounter Medications at Time of Discharge cetirizine 10 MG tablet Take 1 tablet (10 mg total) by mouth daily. 01/15/2021 CREON [id number] units capsule TAKE 1 CAPSULE BY MOUTH THREE TIMES DAILY WITH MEALS AND OR SNACKS 10/01/2020 VENTOLIN HFA 108 (90 Base) MCG/ACT inhaler INHALE 1 PUFF BY MOUTH EVERY 4 HOURS NEEDED FOR SHORTNESS OF BREATH AND FOR WHEEZING 03/09/2020 escitalopram (LEXAPRO) 10 MG tablet 12/19/2022 documented as of this encounter H&P Notes * Landon Null MD - 04/13/2023 9:48 AM CST HISTORY AND PHYSICAL INTERVAL NOTE: I have reviewed Amelia Schneider History & Physical which was performed within the past 30 days. After examining Amelia Schneider, no change has occurred in the patient's condition since the H&P was completed. Informed Consent Discussion: Risks, benefits, alternatives as well as the consequences of not performing the surgery/procedure were discussed with the patient and/or family/personal sales representative electric service. Questions were answered and the patient/family/personal sales representative electric service verbalized understanding and desires to proceed. Previous Adverse Experience with Sedation, Analgesia, or Anesthesia? No Risk benefits and alternate treatments were discussed. Signed: LANDON NULL MD 9:48 AM SORTER Source Note - Landon Null MD - 03/21/2023 12:42 PM CDT Summary: Low back pain with pain, numbness, tingling [...] 2020. She said she was working at [employer], was carrying some lab coats and tripped over a pallet landing on her right side. She saidshe immediately reported the injury to her fleet service manager, and underwent evaluation at urgent care. She says that time x-rays were completed of the right knee and she subsequently underwent right knee surgery completed by orthopedic provider, Dr. Ayers on December 05, 2020. She does report some ongoing swellingto the lateral right knee. She said she ultimately lost her job at [employer] following the injury. 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 She rates her pain today as 8 [...] Laterality Date ABDOMINAL HYSTERECTOMY W/ PARTIAL VAGINACTOMY 2006 BREAST REDUCTION BILATERAL 2017 SECTION x2 HC MENISCAL REPAIR 11/05/2020 right knee arthroscopy Medications Prior to Admission Medication Sig Dispense Refill cetirizine 10 MG tablet Take 1 tablet (10 mg total) by mouth daily. CREON [id number] units capsule TAKE 1 CAPSULE BY MOUTH [...] Op Note - Landon Null MD - 04/13/2023 10:05 AM CST PROCEDURE: LUMBAR TRANSFORAMINAL EPIDURAL STEROID INJECTION UNDER FLUOROSCOPY LEVELS: Bilateral L5-S1 PREOPERATIVE DIAGNOSIS: LUMBAR RADICULOPATHY POSTOPERATIVE DIAGNOSIS: SAME [...] THE LEVEL OF L 5-S1 ON THE left and right SIDE. APPROPRIATE NEEDLE TIP POSITION WAS [...] IN STABLE CONDITION WITH APPROPRIATE POST-PROCEDURE INSTRUCTIONS. SORTER documented in this encounter Plan of Treatment Scheduled Orders Name Type Priority Associated Diagnoses Orde r Schedule XR PAIN CLINIC C-ARM Imaging Today One time imaging One time imaging for 1 Occurrences starting 04/13/2023 until 04/13/2023 documented as of this encounter Procedures Procedure Name Priority Date/Time Associated Diagnosis Comments BLOCK TRANSFORAMINAL/SELECTI VE NERVE ROOT 04/13/2023 9:56 AM HOP SORTER Radiculopathy of lumbosacral region documented in this encounter Visit Diagnoses Diagnosis Radiculopathy of lumbosacral region- Primary Thoracic or lumbosacral neuritis or radiculitis, unspecified documented in this encounter Admitting Diagnoses Diagnosis Radiculopathy of lumbosacral region Thoracic or lumbosacral neuritis or radiculitis, unspecified documented in this encounter Administered Medications Inactive Administered Medications - up to 3 most recent administrations Medication Order MAR Action Action Date Dose Rate Site chlorhexidine (PERIDEX) 0.12 % solution 15 mL 15 mL, Mouth/Throat, PRN, Prior to surgery, 1 dose, Starting on [place] 04/13/23 at 0928, Until [place] 04/13/23 at 1215, Patient to perform oral care first. Swish/Gargle in mouth for 30 seconds, and then discard, prior to going to surgery/ If ventilated use saturated swab to clean oral cavity., Pre-Op diazePAM (VALIUM) 5 MG tablet 1 dose, Starting on [place] 04/13/23 at 0945, Until [place] 04/13/23 at 0946, Created by cabinet override diazePAM (VALIUM) tablet 10 mg 10 mg, Oral, Once as needed, Anxiety, 1 dose, Starting on [place] 04/13/23 at 0928, Until [place] 04/13/23 at 0946, Pre-Op Given 04/13/2023 9:46 AM HOP SORTER 10 mg documented in this encounter Active and Recently Administered Medications Times are shown in HOP SORTER. PRN Medication Order 04/11/2023 04/12/2023 04/13/2023 BUpivacaine (PF) (MARCAINE) 0.25 % injection (CANCELED) As needed, Starting on [place] 04/13/23 at 1001, Until [place] 04/13/23 at 1003, Intra-Op 100 (Given - Provid er: Landon Null MD) chlorhexidine (PERIDEX) 0.12 % solution 15 mL 15 mL, Mouth/Throat, PRN, Prior to surgery, 1 dose, Starting on [place] 04/13/23 at 0928, Until [place] 04/13/23 at 1215, Patient to perform oral care first. Swish/Gargle in mouth for 30 seconds, and then discard, prior to going to surgery/ If ventilated use saturated swab to clean oral cavity., Pre-Op diazePAM (VALIUM) tablet 10 mg (COMPLETED) 10 mg, Oral, Once as needed, Anxiety, 1 dose, Starting on [place] 04/13/23 at 0928, Until [place] 04/13/23 at 0946, Pre-Op 0946 (Given - Provid er: Lisa King RN) iopamidol (ISOVUE-M 300) 61 % injection (CANCELED) As needed, Starting on [place] 04/13/23 at 1001, Until [place] 04/13/23 at 1003, Intra-Op 1001 (Given - Provid er: Landon Null MD) lidocaine (PF) (XYLOCAINE) 1 % injection (CANCELED) As needed, Starting on [place] 04/13/23 at 1000, Until [place] 04/13/23 at 1003, Intra-Op 1000 (Given - Provid er: Landon Null MD) methylPREDNISolone acetate (DEPO-Medrol) injection (CANCELED) As needed, Starting on [place] 04/13/23 at 1000, Until [place] 04/13/23 at 1003, Intra-Op 1000 (Given - Provid er: Landon Null MD) documented in this encounter Care Teams Airbrush Artist Technical Relationship Specialty Start Date End Date Ross Campbell FNP [address] [place] [address] PCP - General Nurse Practitioner Family 02/11/21 documented as of this encounter
--- OUTSIDE RECORDS SUMMARY | 2024-06-07 10:55 | XMS_ITS | Encounter Summary ---
Author Organization [facility] Address [address] [place] [address]. [place] [address] [place] [address] Care Team Providers Care Mine Patrol Name Role Phone Ross Campbell Primary Care Provider +1- [phone] Encounter Details Date Type Department Care Team (Late st Contact Info) Description 07/13/2022 2:15 PM HIGH SCHOOL MUSIC DIRECTOR - 07/13/2022 11:59 PM HIGH SCHOOL MUSIC DIRECTOR Hospital Encounter [facility] [address] [place] [address] [place] [address] [place] [address] Discharge Disposition: Home or Self Care (Routine [...] suspected to have Coronavirus/COVID-19? No / Unsure 07/13/2022 2:07 PM HIGH SCHOOL MUSIC DIRECTOR documented as of this encounter Medications at Time of Discharge cetirizine 10 MG tablet Take 1 tablet (10 mg total) by mouth daily. 01/15/2021 CREON [id number] units capsule TAKE 1 CAPSULE BY MOUTH THREE TIMES DAILY WITH MEALS AND OR SNACKS 10/01/2020 VENTOLIN HFA 108 (90 Base) MCG/ACT inhaler INHALE 1 PUFF BY MOUTH EVERY 4 HOURS NEEDED FOR SHORTNESS OF BREATH AND FOR WHEEZING 03/09/2020 cyclobenzaprine 10 MG tablet Take 1 tablet [...] 02/19/2021 3 documented as of this encounter Plan of Treatment Not on file documented as of this encounter Procedures Procedure Name Priority Date/Time Associated Diagnosis Comments XR KNEE RT MIN 4V STAT 07/13/2022 2:3 6 PM HIGH SCHOOL MUSIC DIRECTOR Chronic pain of right knee Primary osteoarthritis of right knee documented in this encounter Results * XR KNEE RT MIN 4V (07/13/2022 2:36 PM HIGH SCHOOL MUSIC DIRECTOR) Anatomical Region Laterality Modality Knee Radiographic Nicole ging 07/13/2022 2:37 PM HIGH SCHOOL MUSIC DIRECTOR Impressions 07/13/2022 2:38 PM HIGH SCHOOL MUSIC DIRECTOR IMPRESSION:===== 1. ??Minimal osteoarthritis the knee. 2. ??Moderate joint effusion noted. Referred By: ?? Interpreted By: Mir Madrigal MD, 07/13/2022 2:37 PM Narrative 07/13/2022 2:38 PM HIGH SCHOOL MUSIC DIRECTOR Examination: Right knee four views Exam Date/Time: 07/13/2022 2:23 PM Reason For Exam: ??right knee pain ?? Comparison: None Technique: four views of the right knee were obtained. Findings: Spurring from the femur, tibia, and patella is noted. ??Moderate joint effusion is seen. ??No definite fracture or dislocation is noted. ===== Procedure Note Mir Madrigal MD - 07/13/2022 Examination: Right knee four views Exam Date/Time: 07/13/2022 2:23 PM Reason For Exam: right knee pain Comparison: None Technique: four views of the right knee were obtained. Findings: Spurring from the femur, tibia, and patella is noted. Moderatejoint effusion is seen. No definite fracture or dislocation is noted. ===== IMPRESSION:===== 1. Minimal osteoarthritis the knee. 2. Moderate joint effusion noted. Referred By: Interpreted By: Mir Madrigal MD, 07/13/2022 2:37 PM Dillan Gee DO GENERAL IMAGING Final Result documented in this encounter Visit Diagnoses Diagnosis Chronic pain of right knee Primary osteoarthritis of right knee Primary localized osteoarthrosis, lower leg documented in this encounter Care Teams Mine Patrol Relationship Specialty Start Date End Date Ross Campbell FNP [address] [place] [address] PCP - General Nurse Practitioner Family 02/11/21 documented as of this encounter
--- OUTSIDE RECORDS SUMMARY | 2024-06-07 10:55 | XMS_ITS | Encounter Summary ---
Author Organization [facility] Address [address] [place] [address]. [place], [place] [id number] [place] [address] Care Team Providers Care Dog Food Shredder Operator Name Role Phone Ross Campbell Primary Care Provider +1- [phone] Reason for Referral * Consultation/Treatment (Routine) - Closed Specialty Diagnoses / Procedures Referred By Contac t Referred To Contact PAIN MANAGEMENT Diagnoses Radiculopathy, lumbar region Procedures OFFICE/OUTPATIENT NEW LOW MDM 30-44 MINUTES OFFICE/OUTPT VISIT,NEW,LEVL IV OFFICE/OUTPT VISIT,NEW,LEVL V OFFICE/OUTPT VISIT,EST,LEVL III OFFICE/OUTPT VISIT,EST,LEVL IV OFFICE/OUTPT VISIT,EST,LEVL V Osmani De Jesus MD [address] [place] [address] Phone: tel: fax: Beronica Santos APNP Phone: tel: fax: Referral ID Status Reason Start Date Expiration Date V isits Requested Visits Authorized [id number] Closed Specialty Services 03/03/2023 04/02/2024 1 1 Scheduling Instructions Right leg pain. Please assess for right L4-5 followed by L5-S1 transforaminal block. Reason for Visit * Reason Comments New Patient MRI Imaging * Surgical (Routine) - Closed Specialty Diagnoses / Procedures Referred By Contac t Referred To Contact NEUROSURGERY Diagnoses Radiculopathy of lumbosacral region Procedures OFFICE/OUTPT VISIT,NEW,LEVL III OFFICE/OUTPT VISIT,NEW,LEVL IV OFFICE/OUTPT VISIT,NEW,LEVL V OFFICE/OUTPT VISIT,EST,LEVL III OFFICE/OUTPT VISIT,EST,LEVL IV OFFICE/OUTPT VISIT,EST,LEVL V GeeApolinarenDO Phone: tel: fax: Osmani De Jesus MD [address] [place] [address] Phone: tel: fax: Referral ID Status Reason Start Date Expiration Date V isits Requested Visits Authorized [id number] Closed Specialty Services 09/19/2022 10/21/2023 99 99 Encounter Details Date Type Department Care Team (Late st Contact Info) Description 03/03/2023 8:40 AM CDT Office Visit [facility] Mult[facility] - [address], [address] [place] [id number] Osmani De Jesus MD [address] [place] [address] New Patient (MRI Imaging) Social History Tobacco Use Types Packs/Day Years [...] Sign Reading Time Taken Comments Blood Pressure 119/79 03/03/2023 8:51 AM CDT Pulse 86 03/03/2023 8:51 AM CDT Temperature 37 ??C (98.6 ??F) 03/03/2023 8:51 AM CDT Respiratory Rate - - Oxygen Saturation 98% 03/03/2023 8:51 AM CDT Inhaled Oxygen Concentration - - Weight 74.3 kg (163 lb 12.8 oz) 03/03/2023 8:51 AM CDT Height 152.4 cm (5') 03/03/2023 8:51 AM CDT Body Mass Index 31.99 03/03/2023 8:51 AM CDT documented in this encounter Progress Notes * Osmani De Jesus MD - 03/03/2023 8:40 AM CDT . 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 Dr. Gee though it was a L5-S1 that was pinched. Pt states no pain in lower back. anterior/lateral side radiated to leg, and feet. Numbness and tingling: Anterior/lateral side RIGHT leg/ foot OT/PT: 2020, completed all visits NSAIDS: Ibuprofen PRN * Osmani De Jesus MD - 03/03/2023 8:40 AM CDT Neurosurgery Consultation Note History Amelia Schneider is a 47-year-old [...] the same incident that was treated surgically. Past Medical History: Diagnosis Date Migraines Seasonal [...] have been marked as taking for the 03/03/23 encounter (Office Visit) with Osmani De Jesus MD. Review of patient's allergies indicates: Allergen Reactions General Anesthesia Nausea Only Morphine Rash Sulfa Antibiotics Rash Physical Exam Filed Vitals: 03/03/23 0851 BP: 119/79 Pulse: 86 Temp: 98.6 ??F (37 ??C) SpO2: 98% Weight: 74.3 kg (163 lb 12.8 oz) Height: 5' (1.524 m) Physical Exam: Alert and oriented x3 Motor examination: Strength: Hip flexors: right 5 left 5 Knee extensors: right 5 left 5 Ankle dorsiflexors: right 5 left 5 Long toe extensors: right 5 left 5 Ankle plantar flexors: right 5 left 5 Deep tendon reflexes: Knee 2+ Ankle 2+ No clonus Straight leg raising negative No SI tenderness Imaging: I reviewed the MRI lumbar spine and the principal findings are mild degenerative changes at L4-5 where there is mild canal stenosis and mild bilateral foraminal stenosis. Mild canal stenosisat L5-S1. 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 Chronic right L5-S1 radiculopathy. Assessment Encounter Diagnose(s) ICD-10-CM SNOMED CT(R) 1. Radiculopathy, lumbar region M54.16 LUMBAR RADICULOPATHY 2. Foraminal stenosis of lumbar region M48.061 STENOSIS OF LUMBAR VERTEBRAL FORAMEN Plan I explained to the patient imaging findings. We discussed management options. She prefers to proceed with injections with pain management. I will send a referral to pain management for consideration of diagnostic and potentially therapeutic right L4-5 followed by L5-S1 transforaminal blocks. Follow-up in 3 months. Questions were asked and answered. I spent 45 minutes today reviewing the patient's medical record, [...] Management Referral Routine Radiculopathy, lumbar region Ordered: 03/03/2023 documented as of this encounter Visit Diagnoses Diagnosis Radiculopathy, lumbar region- Primary Thoracic or lumbosacral neuritis or radiculitis, unspecified Foraminal stenosis of lumbar region Spinal stenosis, lumbar region, without neurogenic claudication documented in this encounter Care Teams Dog Food Shredder Operator Relationship Specialty Start Date End Date Ross Campbell, COFFEE BAR ATTENDANT [address] [place] [id number] PCP - General Nurse Practitioner Family 02/11/21 documented as of this encounter
--- OUTSIDE RECORDS SUMMARY | 2024-06-07 10:55 | XMS_ITS | Encounter Summary ---
Author Organization [facility] Address [address] [place] [address]. [place], [place] [id number] [place] [address] Care Team Providers Care Valet Cashier Name Role Phone Ross Campbell Primary Care Provider +1- [phone] Encounter Details Date Type Department Care Team (Latest Contact Info) Description 03/21/2023 Travel Social History Tobacco Use Types Packs/Day [...] on filedocumented in this encounter Care Teams Valet Cashier Relationship Specialty Start Date End Date Ross Campbell FNP [address] [place] [address] PCP - General Nurse Practitioner Family 02/11/21 documented as of this encounter
--- OUTSIDE RECORDS SUMMARY | 2024-06-07 10:55 | XMS_ITS | Encounter Summary ---
Author Organization [facility] Address [address] [place] [address]. [place], [place] [id number] [place] [address] Care Team Providers Care Paint Coating Machine Operator Name Role Phone Ross Campbell Primary Care Provider +1- [phone] Reason for Visit * Reason Onset Date Comments Follow Up Call 03/21/2023 CALLED PT. TO SE T UP PART TWO OF DR RAMONA MAGAÑA. SET APPOINTMENT IN SNAPBOARD. PATIENT STATED UNDERSTANDING. Encounter Details Date Type Department Care Team (Late st Contact Info) Description 03/21/2023 Telephone [facility] [place], [place] [phone] [id number] Althea Null MD Three [facility] [address] [place], [place] [phone] Follow Up Call (CALLED PT. TO SET UP PART TWO OF DR RAMONA MAGAÑA. SET APPOINTMENT IN SNAPBOARD. PATIENT STATED UNDERSTANDING.) Social History Tobacco Use Types Packs/Day Years [...] as of this encounter Progress Notes * Radha Thomas RN - 03/21/2023 2:12 PM CDT CALLED PATIENT TO SET UP FOLLOW UP (PART 2) OF DR. RAMONA MAGAÑA. PATIENT STATED UNDERSTANDING. APPOINTMENT SET UP IN SNAPBOARD. documented in this encounter Plan of Treatment Not on file documented as of this encounter Visit Diagnoses Not on filedocumented in this encounter Care Teams Paint Coating Machine Operator Relationship Specialty Start Date End Date Ross Campbell FNP [address] [place] [address] PCP - General Nurse Practitioner Family 02/11/21 documented as of this encounter
--- OUTSIDE RECORDS SUMMARY | 2024-06-07 10:55 | XMS_ITS | Encounter Summary ---
Author Organization [facility] Address [address] [place] [address]. [place] [address] [place] [address] Care Team Providers Care Case Management Coordinator Name Role Phone Ross Campbell Primary Care Provider +1- [phone] Reason for Visit * Reason Comments EMG Testing Bilateral lower extr emities * Procedure (Routine) - Closed Specialty Diagnoses / Procedures Referred By Contac t Referred To Contact Diagnoses Chronic pain of right knee Primary osteoarthritis of right knee Numbness and tingling of right lower extremity Procedures NCVS\EMG ([facility]) Dillan Gee DO Phone: tel: fax: Marques Og MD [address] [place] [address] Phone: tel: fax: Referral ID Status Reason Start Date Expiration Date V isits Requested Visits Authorized [id number] Closed Office Procedure 05/25/2022 06/25/2023 1 1 Encounter Details Date Type Department Care Team (Latest Contact Info) Description 08/16/2022 1:00 PM CDT Office Visit [facility] Multispecialty Care - [address], [address] [place] [address] Marques Og MD [address] [place] [address] EMG Testing (Bilateral lower extremities/) Social History Tobacco Use Types Packs/Day Years [...] suspected to have Coronavirus/COVID-19? No / Unsure 08/16/2022 1:02 PM CDT documented as of this encounter Last Filed Vital Signs Vital Sign Reading Time Taken Comments Blood Pressure 137/76 08/16/2022 1:11 PM CDT Pulse 96 08/16/2022 1:11 PM CDT Temperature 37.2 ??C (99 ??F) 08/16/2022 1:11 PM CDT Respiratory Rate - - Oxygen Saturation 99% 08/16/2022 1:11 PM CDT Inhaled Oxygen Concentration - - Weight 71.7 kg (158 lb) 08/16/2022 1:11 PM CDT Height 153.7 cm (5' 0.5 ) 08/16/2022 1:11 PM CDT Body Mass Index 30.35 08/16/2022 1:11 PM CDT documented in this encounter Progress Notes * Marques Og MD - 08/16/2022 1:00 PM CDT emg documented in this encounter Procedure Notes * Marques Og MD - 08/16/2022 1:00 PM CDTAssociated Order(s): EMG For sensory nerve conduction studies, the amplitude is measured [id number], the latency reported is the distal peak latency, and the conduction velocity, if measured, is determined from onset latencies and is over the limb. For motor nerve conduction studies, the amplitude is measured [id number], the latency reported is the distal onset latency, the conduction velocity is calculated over the limb, and the F wave latency is the minimum latency. Unless otherwise noted, the limb temperature was monitored continuously and remained between 32??C and 36??C during the performance of the NCSs. The study was performed with a concentric needle electrode. Fibrillation and fasciculation activityis graded from none (0) to continuous (4+). The configuration and recruitment pattern of motor unitaction potentials under voluntary control, if not normal, are described below. 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 In addition there is a chronic L5-S1 radiculopathy on the right side. documented in this encounter Plan of Treatment Scheduled Orders Name Type Priority Associated Diagnoses Orde r Schedule NERVE CONDUCTION, STUDIES 7-8 Procedures Routine Numbness and tingling of right lower extremity Ordered: 08/16/2022 COMPLETE FIVE OR MORE MUSCLES STUDIED INNERVATED Procedures Routine Numbness and tingling of right lower extremity Ordered: 08/16/2022 documented as of this encounter Procedures Procedure Name Priority Date/Time Associated Diagnosis Comments EMG Routine 08/17/2022 10:42 AM CDT Chronic pain of right knee Primary osteoarthritis of right knee Numbness and tingling of right lower extremity documented in this encounter Results * NCVS\EMG ([facility]) (08/17/2022 10:42 AM CDT) 08/17/2022 10:4 2 AM CDT us Dillan Gee DO NEUROLOGY ORDERABLES Final Resu lt [facility] documented in this encounter Visit Diagnoses Diagnosis Chronic pain of right knee Primary osteoarthritis of right knee Primary localized osteoarthrosis, lower leg Numbness and tingling of right lower extremity documented in this encounter Care Teams Case Management Coordinator Relationship Specialty Start Date End Date Ross Campbell FNP [address] [place] [id number] PCP - General Nurse Practitioner Family 02/11/21 documented as of this encounter
--- OUTSIDE RECORDS SUMMARY | 2024-06-07 10:55 | XMS_ITS | Encounter Summary ---
Author Organization [facility] Address [address] [place] [address]. [place] [address] [place] [address] Care Team Providers Care Treating Inspector Name Role Phone Ross Campbell Primary Care Provider +1- [phone] Reason for Visit * Reason Onset Date Comments Error 06/21/2022 Encounter Details Date Type Department Care Team (Late st Contact Info) Description 06/21/2022 Telephone [facility] Medical [facility] Orthopedic Surgery-[place] [address] [place], [place] [id number] [place] [address] [address] [place], [place] [id number] Error Social History Tobacco Use Types Packs/Day Years [...] Coronavirus/COVID-19? No / Unsure 05/25/2022 1:17 PM MIXER OPERATOR documented as of this encounter Plan of Treatment Not on file documented as of this encounter Visit Diagnoses Not on filedocumented in this encounter Care Teams Treating Inspector Relationship Specialty Start Date End Date Ross Campbell FNP [address] [place] [address] PCP - General Nurse Practitioner Family 02/11/21 documented as of this encounter
--- OUTSIDE RECORDS SUMMARY | 2024-06-07 10:55 | XMS_ITS | Encounter Summary ---
Author Organization [facility] Address [address] [place] [address]. [place] [address] [place] [address] Care Team Providers Care Chairman Ceo Name Role Phone Ross Campbell Primary Care Provider +1- [phone] Reason for Visit * Reason Onset Date Comments Appointment Request 06/15/2022 Encounter Details Date Type Department Care Team (Late st Contact Info) Description 06/15/2022 Telephone [facility] Multispecialty Care - [facility] [address] [facility], [address] [place] [address] Marques Og MD [address] [place] [address] Appointment Request Social History Tobacco Use Types Packs/Day Years [...] Coronavirus/COVID-19? No / Unsure 05/25/2022 1:17 PM EGGS INSPECTOR documented as of this encounter Progress Notes * Nely Ricketts RN - 06/15/2022 1:00 PM CST Returned call to patient scheduled her for 08/16/22 at 1pm. INSPECTOR * Chantelle Mendoza - 06/15/2022 10:15 AM CST Patient returned your call to schedule her EMG. Please give her a call back INSPECTOR documented in this encounter Plan of Treatment Not on file documented as of this encounter Visit Diagnoses Not on filedocumented in this encounter Care Teams Chairman Ceo Relationship Specialty Start Date End Date Ross Campbell, HEARSE DRIVER [address] [place] [address] PCP - General Nurse Practitioner Family 02/11/21 documented as of this encounter
--- OUTSIDE RECORDS SUMMARY | 2024-06-07 10:55 | XMS_ITS | Encounter Summary ---
Author Organization [facility] - [facility] Address [address] [place] [address]. [place], [place] [address] [place] [address] Care Team Providers Care Auto Wheel Alignment Specialist Name Role Phone Ross Campbell Primary Care Provider +1- [phone] Encounter Details Date Type Department Care Team (Latest Contact Info) Description 07/13/2022 Travel Social History Tobacco Use Types Packs/Day [...] Coronavirus/COVID-19? No / Unsure 07/13/2022 2:07 PM GLOBAL EXPANSION SALES DIRECTOR documented as of this encounter Plan of Treatment Not on file documented as of this encounter Visit Diagnoses Not on filedocumented in this encounter Care Teams Auto Wheel Alignment Specialist Relationship Specialty Start Date End Date Ross Campbell FNP [address] [place] [address] PCP - General Nurse Practitioner Family 02/11/21 documented as of this encounter
--- OUTSIDE RECORDS SUMMARY | 2024-06-07 10:55 | XMS_ITS | Encounter Summary ---
Author Organization [facility] - [facility] Address [address] [place] [address]. [place], [place] [address] [place] [address] Care Team Providers Care Instrument Processing Tech Name Role Phone Ross Campbell Primary Care Provider +1- [phone] Encounter Details Date Type Department Care Team (Latest Contact Info) Description 05/25/2022 Travel Social History Tobacco Use Types Packs/Day [...] Coronavirus/COVID-19? No / Unsure 05/25/2022 1:17 PM BUTCHER OR SMALLGOODS MAKER documented as of this encounter Plan of Treatment Not on file documented as of this encounter Visit Diagnoses Not on filedocumented in this encounter Care Teams Instrument Processing Tech Relationship Specialty Start Date End Date Ross Campbell FNP [address] [place] [address] PCP - General Nurse Practitioner Family 02/11/21 documented as of this encounter
--- OUTSIDE RECORDS SUMMARY | 2024-06-07 10:55 | XMS_ITS | Encounter Summary ---
Author Organization [facility] Address [address] [place] [address]. [place], [place] [address] [place] [address] Care Team Providers Care Freelance Director Name Role Phone Ross Campbell Primary Care Provider +1- [phone] Encounter Details Date Type Department Care Team (Latest Contact Info) Description 08/16/2022 Travel Social History Tobacco Use Types Packs/Day [...] PM CDT documented as of this encounter Plan of Treatment Not on file documented as of this encounter Visit Diagnoses Not on filedocumented in this encounter Care Teams Freelance Director Relationship Specialty Start Date End Date Ross Campbell FNP [address] [place] [address] PCP - General Nurse Practitioner Family 02/11/21 documented as of this encounter
--- OUTSIDE RECORDS SUMMARY | 2024-06-07 10:55 | XMS_ITS | Encounter Summary ---
Author Organization [facility] Address [address] [place] [address]. [place] [address] [place] [address] Care Team Providers Care Platen Press Feeder Name Role Phone Ross Campbell Primary Care Provider +1- [phone] Reason for Visit * Reason Onset Date Comments Referral 03/02/2023 Encounter Details Date Type Department Care Team (Late st Contact Info) Description 03/02/2023 Telephone [facility] Medical [facility] Orthopedic Surgery-[place] [address] [place] [address] Dillan Wilson, [address] [place] [address] Referral Social History Tobacco Use Types Packs/Day Years [...] as of this encounter Progress Notes * Lisbeth Smith - 03/02/2023 1:40 PM CDT Pt says that she was referred by dr wilson to dr. Calvo. She is asking if you will send over the records for her right leg that shows l5 and s1 dr. Turners Pt [phone] documented in this encounter Plan of Treatment Not on file documented as of this encounter Visit Diagnoses Not on filedocumented in this encounter Care Teams Platen Press Feeder Relationship Specialty Start Date End Date Ross Campbell FNP [address] [place] [address] PCP - General Nurse Practitioner Family 02/11/21 documented as of this encounter
--- OUTSIDE RECORDS SUMMARY | 2024-06-07 10:55 | XMS_ITS | Encounter Summary ---
Author Organization [facility] Address [address] [place] [address]. [place], [place] [address] [place] [address] Care Team Providers Care Mechanics Handyman Name Role Phone Ross Campbell Primary Care Provider +1- [phone] Encounter Details Date Type Department Care Team (Latest Contact Info) Description 12/13/2021 Travel Social History Tobacco Use Types Packs/Day [...] suspected to have Coronavirus/COVID-19? No / Unsure 12/13/2021 10:02 AM CDT documented as of this encounter Plan of Treatment Not on file documented as of this encounter Visit Diagnoses Not on filedocumented in this encounter Care Teams Mechanics Handyman Relationship Specialty Start Date End Date Ross Campbell FNP [address] [place] [address] PCP - General Nurse Practitioner Family 02/11/21 documented as of this encounter
--- OUTSIDE RECORDS SUMMARY | 2024-06-07 10:55 | XMS_ITS | Encounter Summary ---
Author Organization [facility] Address [address] [place] [address]. [place] [address] [place] [address] Care Team Providers Care Para Educator Name Role Phone Ross Campbell Primary Care Provider +1- [phone] Reason for Referral * Surgical (Routine) - Closed Specialty Diagnoses / Procedures Referred By Contac t Referred To Contact NEUROSURGERY Diagnoses Radiculopathy of lumbosacral region Procedures OFFICE/OUTPT VISIT,NEW,LEVL III OFFICE/OUTPT VISIT,NEW,LEVL IV OFFICE/OUTPT VISIT,NEW,LEVL V OFFICE/OUTPT VISIT,EST,LEVL III OFFICE/OUTPT VISIT,EST,LEVL IV OFFICE/OUTPT VISIT,EST,LEVL V Dillan Gee DO Phone: tel: fax: Osmani De Jesus MD [address] [place] [address] Phone: tel: fax: Referral ID Status Reason Start Date Expiration Date V isits Requested Visits Authorized [id number] Closed Specialty Services 09/19/2022 10/21/2023 99 99 Reason for Visit * Reason Comments Knee Pain Right knee pain * Consultation (Routine) - Closed Specialty Diagnoses / Procedures Referred By Contact Referred To Contact ORTHOPAEDIC SURGERY / ORTHOPAEDICS SURGERY Diagnoses right knee pain - knot - [place] [address] [place] [address] Phone: tel: [place]: [place] [address] [place] [address] Phone: tel: fax: Referral ID Status Reason Start Date Expiration Date Visits Re quested Visits Authorized [id number] Closed 12/13/2021 12/14/2022 99 99 Encounter Details Date Type Department Care Team (Late st Contact Info) Description 09/19/2022 3:10 PM CDT Office Visit [facility] Orthopaedic Surgery-[place] [address] [place] [address] [place] [address] [place] [address] Knee Pain (Right knee pain) Social History Tobacco Use Types Packs/Day Years Used Date Smoking Tobacco: Never Smokeless Tobacco: Never Tobacco Cessation:Counseling Given: No Comments:na Alcohol Use Standard Drinks/Week Comments Never [...] suspected to have Coronavirus/COVID-19? No / Unsure 09/19/2022 2:58 PM CDT documented as of this encounter Last Filed Vital Signs Vital Sign Reading Time Taken Comments Blood Pressure 117/80 09/19/2022 3:28 PM CDT Pulse 92 09/19/2022 3:28 PM CDT Temperature 36.7 ??C (98 ??F) 09/19/2022 3:28 PM CDT Respiratory Rate 18 09/19/2022 3:28 PM CDT Oxygen Saturation 99% 09/19/2022 3:28 PM CDT Inhaled Oxygen Concentration - - Weight 71 kg (156 lb 9.6 oz) 09/19/2022 3:28 PM CDT Height 153.7 cm (5' 0.5 ) 09/19/2022 3:28 PM CDT Body Mass Index 30.08 09/19/2022 3:28 PM CDT documented in this encounter Progress Notes * Bar Joel - 09/20/2022 3:50 PM CDTAssociated Problem(s): Radiculopathy of lumbosacral region Referral to, Dr. De Jesus, neurosurgery for evaluation. Bilateral, superficial, and perineal sensory is absent. Prescription for Alpha lipoic acid, CoQ10, and complex Vitamin B sent to the pharmacy. Will see her back as needed. * Dillan Gee DO - 09/19/2022 3:10 PM CDT Images from the original note were not included. Office Visit Reason for Visit: Knee Pain (Right knee pain) History of Present Illness: Amelia Schneider is a 46-year-old female who presents for right knee pain. Patient???s rightknee is numb and swollen, making it difficult to sleep at night. She had an MRI done in December 2021 which showed scoliosis of the lumbar with a bulging disc. EMG showed chronic L5-S1 radiculopathy on the right. The right limb shows chronic neurogenic motor and potentials in the tibialis, anterior gastroc medial head, and tensor fasciae latae. Patient reports she is taking ibuprofen for pain. Not taking a statin. Review of Systems: Constitutional: Negative for chills and fever. HENT: Negative for sore throat and trouble swallowing. Eyes: Negative for pain and discharge. Respiratory: Negative for chest tightness and shortness of breath. Cardiovascular: Negative for chest pain and palpitations. Gastrointestinal: Negative for abdominal pain and nausea. Endocrine: Negative for cold intolerance and heat intolerance. Genitourinary: Negative for difficulty urinating and dysuria. Skin: Negative for rash and wound. Allergic/Immunologic: Negative for immunocompromised state. Neurological: Negative for light-headedness and numbness. Hematological: Negative for adenopathy. Does not bruise/bleed easily. Psychiatric/Behavioral: Negative for agitation and confusion. All other systems reviewed and are negative. Outpatient Medications Marked as Taking for the 09/19/22 encounter (Office Visit) with Dillan Gee, DO Medication Sig Dispense Refill cetirizine 10 MG tablet Take 1 tablet (10 mg total) by mouth daily. CREON [id number] units capsule TAKE 1 CAPSULE BY MOUTH [...] Name Age of Onset Heart Disease Mother Vital Signs: Filed Vitals: 09/19/22 1528 BP: 117/80 Pulse: 92 Resp: 18 Temp: 98 ??F (36.7 ??C) TempSrc: Core SpO2: 99% Weight: 71 kg (156 lb 9.6 oz) Height: 5' 0.5 (1.537 m) Estimated BMI Today: Estimated body mass index is 30.08 kg/m?? as calculated from the following: Height as of this encounter: 5' 0.5 (1.537 m). Weight as of this encounter: 71 kg (156 lb 9.6 oz). Physical Exam: Constitutional: she is oriented to person, place, and time. she appears well- developed and well-nourished. No distress. HENT: Head: Normocephalic and atraumatic. Eyes: Conjunctivae are normal. No scleral icterus. Neck: Neck supple. Cardiovascular: Regular rate and intact distal pulses. Pulmonary/Chest: Effort normal. No stridor. No respiratory distress. Neurological: she is alert and oriented to person, place, and time. Skin: Skin is warm and dry. Psychiatric: she has a normal mood and affect. Nursing note and vitals reviewed. Ortho Exam: Lateral aspect of right leg: Hip has good ROM, knee is stable. Positive crepitus ROM. Tenderness topalpation. The calves are soft and nontender with no evidence of DVT or infection. There are no open wounds or skin breakdowns. There is no clubbing, cyanosis, edema or adenopathy. Assessment/Plan: Problem List Items Addressed This Visit Neuro Radiculopathy of lumbosacral region - Primary Referral to, Dr. De Jesus, neurosurgery for evaluation. Bilateral, superficial, and perineal sensory is absent. Prescription for Alpha lipoic acid, CoQ10, and complex Vitamin B sent to the pharmacy. Will see her back as needed. Relevant Orders Ambulatory referral to Neurosurgery ([facility]) Bar Joel 09/19/2022 Bar Jolley scribe, am personally taking down the notes in the presence of DILLAN GEE DO. [09/20/22, 3:52 PM] Dillan Jolley DO personally performed the services described in this documentation. All medicalrecord entries and diagnoses made by the scribe were at my direction and in my presence. I have reviewed the chart and agree that the record reflects my personal performance and is accurate and complete. documented in this encounter Plan of Treatment Scheduled Referrals Name Type Priority Associated Diagnoses Orde r Schedule Ambulatory referral to Neurosurgery ([facility]) Referral Routine Radiculopathy of lumbosacral region Ordered: 09/19/2022 documented as of this encounter Visit Diagnoses Diagnosis Radiculopathy of lumbosacral region- Primary Thoracic or lumbosacral neuritis or radiculitis, unspecified Numbness and tingling of right lower extremity BMI 31.0-31.9,adult Body Mass Index 31.0-31.9, adult Primary osteoarthritis of right knee Primary localized osteoarthrosis, lower leg documented in this encounter Care Teams Para Educator Relationship Specialty Start Date End Date Ross Campbell FNP [address] [place] [address] PCP - General Nurse Practitioner Family 02/11/21 documented as of this encounter
--- OUTSIDE RECORDS SUMMARY | 2024-06-07 10:55 | XMS_ITS | Encounter Summary ---
Author Organization [facility] Address [address] [place] [address]. [place], [place] [address] [place] [address] Care Team Providers Care Dye Feeder Name Role Phone Adrian Ross BOWLING Primary Care Provider +1- [phone] Reason for Visit * Reason Comments MRI (SCAN) Encounter Details Date Type Department Care Team (Latest Contact Info) Description 01/27/2022 Scan [facility] Scanned, [facility] MRI (SCAN) Social History Tobacco Use Types Packs/Day Years [...] Name Priority Date/Time Associated Diagnosis Comments MRI GENERIC 01/27/2022 documented in this encounter Results * MRI GENERIC (01/27/2022) Anatomical Region Laterality Modality Other 01/27/2022 us Doc [facility] Scanned SCANNING Final Resu lt documented in this encounter Visit Diagnoses Not on filedocumented in this encounter Care Teams Dye Feeder Relationship Specialty Start Date End Date Ross Campbell, TAWNYA [address] [place] [address] PCP - General Nurse Practitioner Family 02/11/21 documented as of this encounter
--- OUTSIDE RECORDS SUMMARY | 2024-06-07 10:55 | XMS_ITS | Encounter Summary ---
Author Organization [facility] Address [address] [place] [address]. [place] [address] [place] [address] Care Team Providers Care Application Engineer Name Role Phone Ross Campbell Primary Care Provider +1- [phone] Reason for Visit * Auth/Cert (Routine) Specialty Diagnoses / Procedures Referred By Contac t Referred To Contact Diagnoses Radiculopathy of lumbosacral region lr Procedures BLOCK TRANSFORAMINAL/SELECTIVE NERVE ROOT l5-s1 Landon Null MD Three [facility] [address] [place] [address] Phone: tel: fax: Referral ID Status Reason Start Date Expiration Date Visits Re quested Visits Authorized [id number] 1 1 Encounter Details Date Type Department Care Team (Late st Contact Info) Description 04/13/2023 10:00 AM FINANCIAL ANALYSIS MANAGER - 04/13/2023 10:20 AM FINANCIAL ANALYSIS MANAGER Surgery [facility] [place] [address] [phone] Landon Null MD Three [facility] [address] [place] [address] [phone] BLOCK TRANSFORAMINAL/SELEC TIVE NERVE ROOT l5-s1 Surgery Details Date/Time Status Location OR Service Patient Class Case Class Case Type Trauma Case? 04/13/2023 10:00 AM Posted EMILY Pain Mgmt Pain Proc Rm Pain Medicine Short Stay/Outpa tient Surgery No Panel 1 Procedure LRB Anes Op Region Wound Class Comments BLOCK TRANSFORAMINAL/SELECT RUBEN NERVE ROOT l5-s1 Bilateral Local Clean BLOCK TRANSFORAMINAL SELECTIVE NERVE ROOT L5S1 BILATERAL NO BLOOD THINNERS RETURN PATIENT (PART [address] RAMONA MAGAÑA) SCHEDULED 03/21/23 ALDO ZIMMERMAN/UYEN Surgeon Surgeon Role Service Panel Landon Null [...] Comments Blood Pressure 127/82 04/13/2023 10:02 AM FINANCIAL ANALYSIS MANAGER Pulse 90 04/13/2023 10:02 AM FINANCIAL ANALYSIS MANAGER Temperature 36.1 ??C (96.9 ??F) 04/13/2023 9:36 AM CS T Respiratory Rate 18 04/13/2023 10:02 AM FINANCIAL ANALYSIS MANAGER Oxygen Saturation 100% 04/13/2023 10:02 AM FINANCIAL ANALYSIS MANAGER Inhaled Oxygen Concentration - - Weight 75.3 kg (166 lb) 04/13/2023 9:36 AM FINANCIAL ANALYSIS MANAGER Height 152.4 cm (5') 04/13/2023 9:36 AM FINANCIAL ANALYSIS MANAGER Body Mass Index 32.42 04/13/2023 9:36 AM FINANCIAL ANALYSIS MANAGER documented in this encounter Discharge Instructions * Discharge Instructions* Radha Thomas RN - 04/13/2023 10:10 AM FINANCIAL ANALYSIS MANAGER [facility] Interventional Pain Management Discharge [...] DOCTOR AND HOW TO REACH US: Call [phone] ext. [phone] for scheduling, insurance questions or speak with [...] PLEASE GO TO THE EMERGENCY ROOM IMMEDIATELY! NCIAL ANALYSIS MANAGER NCIAL ANALYSIS MANAGER documented in this encounter Medications at Time of Discharge cetirizine 10 MG tablet Take 1 tablet (10 mg total) by mouth daily. 01/15/2021 CREON [id number] units capsule TAKE 1 CAPSULE BY MOUTH [...] were discussed with the patient and/or family/personal b2b outside sales representative. Questions were answered and the patient/family/personal b2b outside sales representative verbalized understanding and desires to proceed. Previous Adverse Experience with Sedation, Analgesia, or Anesthesia? No Risk benefits and alternate treatments were discussed. Signed: LANDON NULL MD 9:48 AM NCIAL ANALYSIS MANAGER Source Note - Landon Null MD - [...] 2020. She said she was working at [employer], was carrying some lab coats and tripped over a pallet landing on her right side. She saidshe immediately reported the injury to her dairy bar manager, and underwent evaluation at urgent care. She says that time x-rays were completed of the right knee and she subsequently underwent right knee surgery completed by orthopedic provider, Dr. Ayers on December 05, 2020. She does report some ongoing swellingto the lateral right knee. She said she ultimately lost her job at [employer] following the injury. 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 She rates her pain today as 8 [...] (10 mg total) by mouth daily. CREON [id number] units capsule TAKE 1 CAPSULE BY MOUTH [...] across the lumbar facets. No pain to palpationof the SI joints. Range of motion of her back is limited with extension. Sitting straight leg lift is negative bilaterally. Motor strength to lower extremities is 5/5 with hip flexion, knee extensionand flexion, ankle dorsiflexion, plantar flexion and hallux extension bilaterally. No color change,redness, warmth, or discrepancy in calf size noted [...] IN STABLE CONDITION WITH APPROPRIATE POST-PROCEDURE INSTRUCTIONS. NCIAL ANALYSIS MANAGER documented in this encounter Plan of Treatment Scheduled Orders Name Type Priority Associated Diagnoses Orde r Schedule XR PAIN CLINIC C-ARM Imaging Today One time imaging One time imaging for 1 Occurrences starting 04/13/2023 until 04/13/2023 documented as of this encounter Procedures Procedure Name Priority Date/Time Associated Diagnosis Comments BLOCK TRANSFORAMINAL/SELECTI VE NERVE ROOT 04/13/2023 9:56 AM FINANCIAL ANALYSIS MANAGER Radiculopathy of lumbosacral region documented in this encounter Visit Diagnoses Diagnosis Radiculopathy of lumbosacral region- Primary Thoracic or lumbosacral neuritis or radiculitis, unspecified Radiculopathy of lumbosacral region Thoracic or lumbosacral [...] 0.25 % injection As needed, Starting on [place] 04/13/23 at 1001, Until [place] 04/13/23 at 1003, Intra-Op Given 04/13/2023 10:01 AM FINANCIAL ANALYSIS MANAGER 2 mLs chlorhexidine (PERIDEX) 0.12 % solution [...] at 0946, Pre-Op Given 04/13/2023 9:46 AM FINANCIAL ANALYSIS MANAGER 10 mg iopamidol (ISOVUE-M 300) 61 % injection As needed, Starting on [place] 04/13/23 at 1001, Until [place] 04/13/23 at 1003, Intra-Op Given 04/13/2023 10:01 AM FINANCIAL ANALYSIS MANAGER 5 mLs lidocaine (PF) (XYLOCAINE) 1 % injection As needed, Starting on [place] 04/13/23 at 1000, Until [place] 04/13/23 at 1003, Intra-Op Given 04/13/2023 10:00 AM FINANCIAL ANALYSIS MANAGER 2 mLs methylPREDNISolone acetate (DEPO-Medrol) injection As needed, Starting on [place] 04/13/23 at 1000, Until [place] 04/13/23 at 1003, Intra-Op Given 04/13/2023 10:00 AM FINANCIAL ANALYSIS MANAGER 80 mg documented in this encounter Active and Recently Administered Medications Times are shown in FINANCIAL ANALYSIS MANAGER. PRN Medication Order 04/11/2023 04/12/2023 04/13/2023 BUpivacaine [...] MD) documented in this encounter Care Teams Application Engineer Relationship Specialty Start Date End Date Ross Campbell, TAWNYA [address] [place] [address] PCP - General Nurse Practitioner Family 02/11/21 documented as of this encounter
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
--- OUTSIDE RECORDS SUMMARY | 2024-06-07 10:55 | XMS_ITS | Encounter Summary ---
Author Organization [facility] Address [address] [place] [address]. [place], [place] [address] [place] [address] Care Team Providers Care Driller And Broacher Name Role Phone Ross Campbell Primary Care Provider +1- [phone] Encounter Details Date Type Department Care Team (Latest Contact Info) Description 04/13/2023 Travel Social History Tobacco Use Types Packs/Day [...] on filedocumented in this encounter Care Teams Driller And Broacher Relationship Specialty Start Date End Date Ross Campbell FNP [address] [place] [address] PCP - General Nurse Practitioner Family 02/11/21 documented as of this encounter
--- OUTSIDE RECORDS SUMMARY | 2024-06-07 10:55 | XMS_ITS | Encounter Summary ---
Author Organization [facility] Address [address] [place] [address]. [place], [place] [address] [place] [address] Care Team Providers Care Residential Sales Name Role Phone Ross Campbell Primary Care Provider +1- [phone] Encounter Details Date Type Department Care Team (Latest Contact Info) Description 09/19/2022 Travel Social History Tobacco Use Types Packs/Day [...] on filedocumented in this encounter Care Teams Residential Sales Relationship Specialty Start Date End Date Ross Campbell FNP [address] [place] [address] PCP - General Nurse Practitioner Family 02/11/21 documented as of this encounter
--- OUTSIDE RECORDS SUMMARY | 2024-06-07 10:55 | XMS_ITS | Encounter Summary ---
Author Organization [facility] Address [address] [place] [address]. [place] [address] [place] [address] Care Team Providers Care Hand Sample Maker Name Role Phone Ross Campbell Primary Care Provider +1- [phone] Reason for Visit * Reason Onset Date Comments MRI/CT Orders 12/21/2021 Encounter Details Date Type Department Care Team (Late st Contact Info) Description 12/21/2021 Telephone [facility] Orthopedic Surgery[facility] [address] [place], [place] [id number] [place] [address] [address] [place], [place] [id number] MRI/CT Orders Social History Tobacco Use Types Packs/Day Years [...] AM CDT documented as of this encounter Progress Notes * Vidya Blair RN - 12/21/2021 4:11 PM CDT Amelia called and stated that she has been unable to schedule her lumbar spine MRI as there are nodates/times available that work with her schedule. Amelia asked for me to fax her lumbar spine MRIorder to [facility] in [place]. Phone number: [phone]. . Informed [facility] that I would fax the order over. documented in this encounter Plan of Treatment Not on file documented as of this encounter Visit Diagnoses Not on filedocumented in this encounter Care Teams Hand Sample Maker Relationship Specialty Start Date End Date Ross Campbell, LOT WORKER [address] [place] [address] PCP - General Nurse Practitioner Family 02/11/21 documented as of this encounter
--- OUTSIDE RECORDS SUMMARY | 2024-06-07 10:56 | XMS_ITS | Encounter Summary ---
Author Organization [facility] Address [address] [place] [address]. [place] [address] [place] [address] Care Team Providers Care Blind Eyeletter Name Role Phone Ross CampbellP Primary Care Provider +1- [phone] Reason for Visit * Reason Comments Knee Pain Knot there is painfu l * Consultation (Routine) - Closed Specialty Diagnoses / Procedures Referred By Contact Referred To Contact ORTHOPAEDIC SURGERY / ORTHOPAEDICS SURGERY Diagnoses right knee pain - knot - [place] [address] [place] [address] Phone: tel: [place]: [place] [address] [place] [address] Phone: tel: fax: Referral ID Status Reason Start Date Expiration Date Visits Re quested Visits Authorized [id number] Closed 12/13/2021 12/14/2022 99 99 Encounter Details Date Type Department Care Team (Late st Contact Info) Description 12/13/2021 10:00 AM CDT Office Visit [facility] [address] [place] [address] [place] [address] [address] [place] [phone] Knee Pain (Knot there is painful) Social History Tobacco Use Types Packs/Day Years [...] AM CDT documented as of this encounter Last Filed Vital Signs Vital Sign Reading Time Taken Comments Blood Pressure 128/87 12/13/2021 10:07 AM CDT Pulse 107 12/13/2021 10:07 AM CDT Temperature 37.4 ??C (99.4 ??F) 12/13/2021 10:07 AM C DT Respiratory Rate 20 12/13/2021 10:07 AM CDT Oxygen Saturation 97% 12/13/2021 10:07 AM CDT Inhaled Oxygen Concentration - - Weight 75.4 kg (166 lb 3.2 oz) 12/13/2021 10:07 AM CDT Height 153.7 cm (5' 0.5 ) 12/13/2021 10:07 AM CD T Body Mass Index 31.92 12/13/2021 10:07 AM CDT documented in this encounter Progress Notes * Dillan Gee DO - 12/15/2021 7:06 PM CDTAssociated Problem(s): Primary osteoarthritis of right knee We [...] steroid injections will evaluate the low back. * Dillan Gee DO - 12/15/2021 7:06 PM CDTAssociated Problem(s): BMI 31.0-31.9,adult We discussed the adverse effects of weight on osteoarthritis of the knee. For every 1 pound loss, 4to 6 pounds of stress is relieved from the knee. We discussed low carbohydrate diet to help with weight loss. 80% of weight loss is through diet. * Dillan Gee DO - 12/15/2021 7:06 PM CDTAssociated Problem(s): Numbness and tingling of right lower extremity Positive low back pain. History of scoliosis. Tingling down the right leg after few steps. No relief with steroids to the knee. Toes go numb. Recommend MRI for the lumbar spine. * Dillan Gee DO - 12/13/2021 10:00 AM CDT Images from the original note were not included. Office Visit Reason for Visit: Knee Pain (Knot there is painful) History of Present Illness: Amelia Schneider is a 46-year-old female who presents for follow-up evaluation of right kneepain and discomfort. She still has some low back pain. History of scoliosis. She been taking the muscle relaxer at night to help her sleep. She has tingling down her right leg worse after a few steps. Her toes will go numb. Most the pain in her knee is posterior to the kneecap. She does complain ofswelling/bump superior lateral to the patella in the joint. However, she has had no relief with steroids in the past. Review of Systems: Constitutional: Negative for chills [...] Outpatient Medications Marked as Taking for the 12/13/21 encounter (Office Visit) with Dillan Gee, DO Medication Sig Dispense Refill ??? cetirizine 10 MG tablet Take 10 mg by mouth daily. ??? CREON [id number] units capsule TAKE 1 CAPSULE BY MOUTH THREE TIMES DAILY WITH MEALS AND OR SNACKS ??? cyclobenzaprine 10 MG tablet Take 10 mg by mouth 3 (three) times daily as needed for Muscle Spasms. ??? diclofenac EC 75 MG tablet Take 1 tablet (75 mg total) by mouth 2 (two) times daily. 60 tablet 1 ??? ibuprofen 200 MG tablet Take 400 mg by mouth every 6 (six) hours as needed for Pain. ??? montelukast 10 MG tablet Take 10 mg by mouth daily. ??? UBRELVY 50 MG tablet TAKE 1 TABLET BY MOUTH SINGLE DOSE. MAY REPEAT ONCE AFTER 2 HOURS IF NEEDED. ??? VENTOLIN HFA 108 (90 Base) MCG/ACT [...] History Tobacco Use ??? Smoking status: Never Smoker ??? Smokeless tobacco: Never Used Substance Use Topics ??? Alcohol use: Never ??? Drug use: Never Family History Problem Relation Name Age of Onset ??? Heart Disease Mother Vital Signs: Filed Vitals: 12/13/21 1007 BP: 128/87 Pulse: 107 Resp: 20 Temp: 99.4 ??F (37.4 ??C) TempSrc: Temporal SpO2: 97% Weight: 75.4 kg (166 lb 3.2 oz) Height: 5' 0.5 (1.537 m) PainSc: 5 Moderate Pain (0-10 Scale) Estimated BMI Today: Estimated body mass index is 31.92 kg/m?? as calculated from the following: Height as of this encounter: 5' 0.5 (1.537 m). Weight as of this encounter: 75.4 kg (166 lb 3.2 oz). Physical Exam: Constitutional: she is oriented [...] Ortho Exam: Head is normocephalic and atraumatic. Neck is nontender. Chest metric. Abdomen soft obese nontender. Pelvis is stable to compression and rock. Hips have good pain-free range of motion with no impingement. Equivocal straight leg, braggart's and Lasegue's more for pain than numbness and tingling. Minimal tenderness over the sciatic nerve. Compartments are soft and nontender with no evidence of DVT or infection. No open wound or skin breakdown. No clubbing, cyanosis, edema or adenopathy. Knee is stable to varus valgus stress. Positive grind test. Moderate effusion. Positive fluid wave but negative ballotable patella Imaging: Previous x-rays of the lumbar spine showed mild degenerative changes and scoliosis. Assessment/Plan: Problem List Items Addressed This Visit Endocrine and Metabolic BMI 31.0-31.9,adult We discussed the adverse effects of weight on osteoarthritis of the knee. For every 1 pound loss, 4to 6 pounds of stress is relieved from the knee. We discussed low carbohydrate diet to help with weight loss. 80% of weight loss is through diet. Symptoms and Signs Numbness and tingling of right lower extremity Positive low back pain. History of scoliosis. Tingling down the right leg after few steps. No relief with steroids to the knee. Toes go numb. Recommend MRI for the lumbar spine. Other Primary osteoarthritis of right knee We [...] steroid injections will evaluate the low back. Chronic right-sided low back pain with right-sided sciatica - Primary Relevant Orders MRI LUMB SPINE WO CON DILLAN GEE DO 12/13/2021 Portions of this note were dictated using ArmorText speech recognition software. Occasional wrong wordor sound-alike substitutions may have occurred due to the inherent limitations of voice recognition software. Please read the chart carefully and recognize, using context, where the substitutions may have occurred. documented in this encounter Plan of Treatment Not on file documented as of this encounter Visit Diagnoses Diagnosis Chronic right-sided low back pain with right-sided sciatica- Primary Numbness and tingling of right lower extremity BMI 31.0-31.9,adult Body Mass Index 31.0-31.9, adult Primary osteoarthritis of right knee Primary localized osteoarthrosis, lower leg documented in this encounter Care Teams Blind Eyeletter Relationship Specialty Start Date End Date Ross Campbell FNP [address] [place] [address] PCP - General Nurse Practitioner Family 02/11/21 documented as of this encounter
--- OUTSIDE RECORDS SUMMARY | 2024-06-07 10:56 | XMS_ITS | Encounter Summary ---
Author Organization [facility] Address [address] [place] [address]. [place] [address] [place] [address] Care Team Providers Care Machine Pack Assembler Name Role Phone Ross Campbell Primary Care Provider +1- [phone] Reason for Visit * Reason Onset Date Comments Information 08/25/2021 Encounter Details Date Type Department Care Team (Late st Contact Info) Description 08/25/2021 Telephone [facility] Medical [facility] Orthopedic Surgery-[place] [address] [place], [place] [id number] Dillan Gee, [address] [place] [address] Information Social History Tobacco Use Types Packs/Day Years Used Date Smoking Tobacco: Never Smokeless Tobacco: Never Comments No Sex and Gender Information Value Date Recorded Sex Assigned at Not on file Legal Sex Female 8:23 PM CDT Gender Identity Not on file Sexual Orientation Not on file documented as of this encounter Progress Notes * Georgiana Alonzo MA - 08/30/2021 8:43 AM CDT Called Monday08/27/2021, No answer LVM to call office back * Georgiana Alonzo MA - 08/26/2021 8:33 AM CDT Called and LVM for them to call the [place] office back * Amy Mustafa MA - 08/25/2021 11:25 AM CDT Gerda with [employer] [phone] called states she would like to discuss patientscare MAIX regarding work comp. documented in this encounter Plan of Treatment Not on file documented as of this encounter Visit Diagnoses Not on filedocumented in this encounter Care Teams Machine Pack Assembler Relationship Specialty Start Date End Date Ross Campbell, GLASS BELT SANDER [address] [place] [address] PCP - General Nurse Practitioner Family 02/11/21 documented as of this encounter
--- OUTSIDE RECORDS SUMMARY | 2024-06-07 10:56 | XMS_ITS | Encounter Summary ---
Author Organization [facility] Address [address] [place] [address]. [place] [address] [place] [address] Care Team Providers Care Assembly Machine Offbearer Name Role Phone Ross Campbell Primary Care Provider +1- [phone] Reason for Visit * Reason Comments Knee Pain pain and come up wit h a plan- pain in back as well Encounter Details Date Type Department Care Team (Late st Contact Info) Description 07/06/2021 3:40 PM LEHR STRIPPER Office Visit [facility] [address] [facility] [address] [place] [address] [place] [address] [place] [address] Knee Pain (pain and come up with a plan- pain in back as well) Social History Tobacco Use Types Packs/Day Years Used Date Smoking Tobacco: Never Smokeless Tobacco: Never Comments No Sex and Gender Information Value Date Recorded Sex Assigned at Not on file Legal Sex Female 8:23 PM CDT Gender Identity Not on file Sexual Orientation Not on file COVID-19 Exposure Response Date Recorded In the last month, have you been in contact with someone who was confirmed or suspected to have Coronavirus / COVID-19? No / Unsure 07/06/2021 3:39 PM LEHR STRIPPER documented as of this encounter Last Filed Vital Signs Vital Sign Reading Time Taken Comments Blood Pressure 116/74 07/06/2021 3:45 PM LEHR STRIPPER Pulse 102 07/06/2021 3:45 PM LEHR STRIPPER Temperature 36.8 ??C (98.2 ??F) 07/06/2021 3:45 PM CS T Respiratory Rate 22 07/06/2021 3:45 PM LEHR STRIPPER Oxygen Saturation 98% 07/06/2021 3:45 PM LEHR STRIPPER Inhaled Oxygen Concentration - - Weight 75.8 kg (167 lb) 07/06/2021 3:45 PM LEHR STRIPPER Height 153.7 cm (5' 0.5 ) 07/06/2021 3:45 PM LEHR STRIPPER Body Mass Index 32.08 07/06/2021 3:45 PM LEHR STRIPPER documented in this encounter Progress Notes * Dillan Gee DO - 07/07/2021 2:44 PM CSTAssociated Problem(s): Primary osteoarthritis of right [...] injection. We discussed eventual total knee arthroplasty. STRIPPER * Dillan Gee DO - 07/07/2021 2:44 PM CSTAssociated Problem(s): History of arthroscopy of right knee Patient is scheduled for MR arthrogram of the knee. STRIPPER * Dillan Gee DO - 07/07/2021 2:44 PM CSTAssociated Problem(s): Chronic right-sided low back pain with right-sided sciatica Might consider MRI to the lumbar spine if EMG NCV warrants STRIPPER * Dillan Gee DO - 07/07/2021 2:42 PM CSTAssociated Problem(s): Numbness and tingling of right lower extremity Centered around her knee. States it will radiate up and down. Mostly over the peroneal nerve. Consider peroneal entrapment. Will end up trying to get a EMG/NCV to see if there is any peroneal entrapment. If that shows any radicular issues may need to consider MRI to the lumbar spine. STRIPPER * Dillan Gee DO - 07/06/2021 3:40 PM CST Images from the original note were not included. Office Visit Reason for Visit: Knee Pain (pain and come up with a plan- pain in back as well) History of Present Illness: Amelia Schneider is a 45-year-old female who presents for follow-up evaluation of her right knee painand discomfort. Patient states that she has not been back to work. She did get an independent medical evaluation which suggested maybe ordering a MR arthrogram. She states that she has developed painand discomfort along the way mostly to the lateral aspect of her knee with numbness and tingling that will radiate up and down her leg. She also followed up with a chiropractor that thought that she had some weakness or potential for early foot drop. Concerning for peroneal entrapment. She states that this is gotten progressively worse since the fall. No new history of trauma. Unable to go back to work because of pain and discomfort. Review of Systems: Constitutional: Negative for chills [...] Outpatient Medications Marked as Taking for the 07/06/21 encounter (Office Visit) with Dillan Gee,DO Medication Sig Dispense Refill ??? cetirizine 10 MG tablet Take 10 mg by mouth daily. ??? CREON [id number] units capsule TAKE 1 CAPSULE BY MOUTH THREE TIMES DAILY WITH MEALS AND OR SNACKS ??? cyclobenzaprine 10 MG tablet Take 10 mg by mouth 3 (three) times daily as needed for Muscle Spasms. ??? ibuprofen 200 MG tablet Take 400 [...] Used Substance Use Topics ??? Alcohol use: Not on file ??? Drug use: Not on file Family History Problem Relation Name Age of Onset ??? Heart Disease Mother Vital Signs: Filed Vitals: 07/06/21 1545 BP: 116/74 Pulse: 102 Resp: 22 Temp: 98.2 ??F (36.8 ??C) TempSrc: Skin SpO2: 98% Weight: 75.8 kg (167 lb) Height: 5' 0.5 (1.537 m) PainSc: 8 Severe Pain (0-10 Scale) Estimated BMI Today: Estimated body mass index is 32.08 kg/m?? as calculated from the following: Height as of this encounter: 5' 0.5 (1.537 m). Weight as of this encounter: 75.8 kg (167 lb). Physical Exam: Constitutional: she is oriented to [...] Nursing note and vitals reviewed. Ortho Exam: The portal sites are all well-healed with no evidence of erythema, induration or drainage. There isno effusion. Negative ballotable patella. Negative fluid wave. Knee is stable to varus and valgus stress. Stable to anterior posterior drawer. Positive crepitus range of motion to the patellofemoral joint. No open wound or skin breakdown. No clubbing, cyanosis, edema or adenopathy. Mildly positive T inel's over the peroneal nerve although she is hypersensitive to any touch. Hips have relatively good pain-free range of motion with no impingement. Equivocal straight leg, braggart's and Lasegue's more for pain and numbness and tingling. Pain in her buttocks over the sciatic nerve. Difficult to assess whether or not she has weakness to her dorsiflexion but she does get dorsiflexion to the foot. Imaging: X-rays of her lumbar spine from [place] were reviewed. No evidence of fracture, dislocation or subluxation. She has a slight scoliosis. Assessment/Plan: Problem List Items Addressed This Visit Nervous Numbness and tingling of right lower extremity Centered around her knee. States it will radiate up and down. Mostly over the peroneal nerve. Consider peroneal entrapment. Will end up trying to get a EMG/NCV to see if there is any peroneal entrapment. If that shows any radicular issues may need to consider MRI to the lumbar spine. Musculoskeletal Primary osteoarthritis of right knee - Primary We discussed the risks, benefits and alternatives. [...] injection. We discussed eventual total knee arthroplasty. Endocrine BMI 31.0-31.9,adult Other History of arthroscopy of right knee Patient is scheduled for MR arthrogram of the knee. Chronic right-sided low back pain with right-sided sciatica Might consider MRI to the lumbar spine if EMG NCV warrants DILLAN GEE DO 07/06/2021 STRIPPER documented in this encounter Plan of Treatment Not on file documented as of this encounter Visit Diagnoses Diagnosis Primary osteoarthritis of right knee- Primary Primary localized osteoarthrosis, lower leg BMI 31.0-31.9,adult Body Mass Index 31.0-31.9, adult History of arthroscopy of right knee Other postprocedural status Numbness and tingling of right lower extremity Chronic right-sided low back pain with right-sided sciatica documented in this encounter Care Teams Assembly Machine Offbearer Relationship Specialty Start Date End Date Ross Campbell FNP [address] [place] [address] PCP - General Nurse Practitioner Family 02/11/21 documented as of this encounter
--- OUTSIDE RECORDS SUMMARY | 2024-06-07 10:56 | XMS_ITS | Encounter Summary ---
Author Organization [facility] Address [address] [place] [address]. [place] [address] [place] [address] Care Team Providers Care Rockboard Lather Name Role Phone Ross Campbell Primary Care Provider +1- [phone] Reason for Visit * Reason Onset Date Comments MRI (SCAN) 06/07/2021 Encounter Details Date Type Department Care Team (Late st Contact Info) Description 06/07/2021 Telephone [facility] Medical Group Orthopedic Surgery-[place] [address] [place], [place] [id number] [place] [address] [address] [place], [place] [id number] MRI (SCAN) Social History Tobacco Use Types Packs/Day Years Used Date Smoking Tobacco: Never Smokeless Tobacco: Never Comments No Sex and Gender Information Value Date Recorded Sex Assigned at Not on file Legal Sex Female 8:23 PM CDT Gender Identity Not on file Sexual Orientation Not on file documented as of this encounter Progress Notes * Rachel Bhatti RN - 06/14/2021 3:01 PM CST Called Mike to follow up on the information below. Spoke with Naima and left another message for Suyapa Truong to return call. MOTIVE ELECTRICIAN * Rachel Bhatti RN - 06/10/2021 2:54 PM CST Called Mike at [phone] and left message for Olman Truong, insurance claims specialist to return call. Dr. Cosby's (Independent Medical Evaluation) recommends a MRI arthrogram. Dr. Gee agrees. Does Dr. Gee need to order test? Do we fax order to Mike to set up? Claim# [id number] MOTIVE ELECTRICIAN MOTIVE ELECTRICIAN * Georgiana Alonzo MA - 06/08/2021 11:04 AM CST Received fax from Johnny asking for a second opinion on if an MRI. MOTIVE ELECTRICIAN * Rachel Bhatti RN - 06/07/2021 2:54 PM CST Called and left a message for Gerda to return call. She had an MRI done previously I believe but Dr. Gee has not ordered one recently. We have not seen her since beginning of April. She was going to do work hardening program with Physical Therapy and possible viscosupplement injection. MOTIVE ELECTRICIAN * Laurie Thomas - 06/07/2021 9:13 AM CST Gerda with [employer] called. Asking if MRI has been scheduled for Amelia Please call [phone] MOTIVE ELECTRICIAN documented in this encounter Plan of Treatment Not on file documented as of this encounter Visit Diagnoses Not on filedocumented in this encounter Care Teams Rockboard Lather Relationship Specialty Start Date End Date Ross Campbell FNP [address] [place] [address] PCP - General Nurse Practitioner Family 02/11/21 documented as of this encounter
--- OUTSIDE RECORDS SUMMARY | 2024-06-07 10:56 | XMS_ITS | Encounter Summary ---
Author Organization [facility] Address [address] [place] [address]. [place] [address] [place] [address] Care Team Providers Care Director Of Testing Name Role Phone Ross Campbell Primary Care Provider +1- [phone] Reason for Visit * Reason Onset Date Comments Error 08/26/2021 Encounter Details Date Type Department Care Team (Late st Contact Info) Description 08/26/2021 Telephone [facility] Medical Group Orthopedic Surgery-[place] [address] [place] [address] Dillan Gee, [address] [place] [address] Error Social History Tobacco Use Types Packs/Day [...] on filedocumented in this encounter Care Teams Director Of Testing Relationship Specialty Start Date End Date Ross Campbell FNP [address] [place] [address] PCP - General Nurse Practitioner Family 02/11/21 documented as of this encounter
--- OUTSIDE RECORDS SUMMARY | 2024-06-07 10:56 | XMS_ITS | Encounter Summary ---
Author Organization [facility] Address [address] [place] [address]. [place], [place] [address] [place] [address] Care Team Providers Care Automatic Stacker Name Role Phone Ross Campbell Primary Care Provider +1- [phone] Encounter Details Date Type Department Care Team (Latest Contact Info) Description 11/05/2021 Scan HEALTH INFO [facility] Scanned, Documents Social History Tobacco Use Types Packs/Day Years [...] on filedocumented in this encounter Care Teams Automatic Stacker Relationship Specialty Start Date End Date Ross Campbell FNP [address] [place] [address] PCP - General Nurse Practitioner Family 02/11/21 documented as of this encounter
--- OUTSIDE RECORDS SUMMARY | 2024-06-07 10:56 | XMS_ITS | Encounter Summary ---
Author Organization [facility] Address [address] [place] [address]. [place], [place] [address] [place] [address] Care Team Providers Care Flake Miller Helper Name Role Phone Ross Campbell Primary Care Provider +1- [phone] Encounter Details Date Type Department Care Team (Latest Contact Info) Description 07/06/2021 Travel Social History Tobacco Use Types Packs/Day [...] COVID-19? No / Unsure 07/06/2021 3:39 PM DISPOSAL MAN documented as of this encounter Plan of Treatment Not on file documented as of this encounter Visit Diagnoses Not on filedocumented in this encounter Care Teams Flake Miller Helper Relationship Specialty Start Date End Date Ross Campbell FNP [address] [place] [address] PCP - General Nurse Practitioner Family 02/11/21 documented as of this encounter
--- OUTSIDE RECORDS SUMMARY | 2024-06-07 10:56 | XMS_ITS | Encounter Summary ---
Author Organization [facility] Address [address] [place] [address]. [place] [address] [place] [address] Care Team Providers Care Per Diem Rn Name Role Phone Ross Campbell Primary Care Provider +1- [phone] Reason for Visit * Reason Onset Date Comments Information 09/08/2021 Encounter Details Date Type Department Care Team (Late st Contact Info) Description 09/08/2021 Telephone [facility] Medical [facility] Orthopedic Surgery-[place] [address] [place], [place] [id number] Dillan Gee, [address] [address] [place], [place] [id number] Information Social History Tobacco Use Types Packs/Day Years Used Date Smoking Tobacco: Never Smokeless Tobacco: Never Comments No Sex and Gender Information Value Date Recorded Sex Assigned at Not on file Legal Sex Female 8:23 PM CDT Gender Identity Not on file Sexual Orientation Not on file documented as of this encounter Progress Notes * Brissa Cai - 09/08/2021 3:14 PM CDT Gerda returned my call and I gave her information to send the request directly to me so that I can expedite. * Brissa Cai - 09/08/2021 2:01 PM CDT Gerda was unavailable and I left her a voicemail 4-6-22 2:01 pm. * Amy Mustafa MA - 09/08/2021 1:44 PM CDT Gerda with [employer] wanted to know if office automation clerk was available. I gave her Brissa Cai phone number. Gerda states she is very upset because she feels she is getting the run around from Dr. Delarosa office and has been trying to make contact for apprx 1 month. She states she has been given 3 different fax numbers and has not been getting returned phone calls. I verified Gerda phone number of [phone] and she stated this was correct. She also said she has talked to marylou this before and I explained I answer the phone and put in a phone message and than I read herthe messages that I put in the previously along with the responses and Gerda said that she has not been getting voicemails. documented in this encounter Plan of Treatment Not on file documented as of this encounter Visit Diagnoses Not on filedocumented in this encounter Care Teams Per Diem Rn Relationship Specialty Start Date End Date Ross Campbell FNP [address] [place] [address] PCP - General Nurse Practitioner Family 02/11/21 documented as of this encounter
--- OUTSIDE RECORDS SUMMARY | 2024-06-07 10:56 | XMS_ITS | Encounter Summary ---
Author Organization [facility] Address [address] [place] [address]. [place] [address] [place] [address] Care Team Providers Care Critical Care Rn Name Role Phone Ross Campbell Primary Care Provider +1- [phone] Reason for Visit * Reason Onset Date Comments Other 07/20/2021 Encounter Details Date Type Department Care Team (Late st Contact Info) Description 07/20/2021 Telephone [facility] Medical [facility] Orthopedic Surgery-[place] [address] [place], [place] [phone] [place] [address] [place] [address] Other Social History Tobacco Use Types Packs/Day Years [...] COVID-19? No / Unsure 07/06/2021 3:39 PM MOTION PICTURE SET WORKER documented as of this encounter Progress Notes * Georgiana Alonzo MA - 07/21/2021 8:50 AM CST Reports are here. [employer] is requesting that Dr. Gee look over them and say if patient is still needing to be seen by him. ON PICTURE SET WORKER * Dillan Gee DO - 07/20/2021 4:45 PM CST Wherever she got the MR Arthrogram, it is of poor quality, would recommend we get the official readfrom the radiologist that read it thanks ON PICTURE SET WORKER * Lucrecia Trevizo RN - 07/20/2021 3:34 PM CST Disc has been uploaded. Patient is asking if you have had a chance to look at it yet? ON PICTURE SET WORKER * Lauren Cohen - 07/20/2021 11:37 AM CST Needs to know if CD was copied and was going to run out and pick it up , Please [phone] ON PICTURE SET WORKER documented in this encounter Plan of Treatment Not on file documented as of this encounter Visit Diagnoses Not on filedocumented in this encounter Care Teams Critical Care Rn Relationship Specialty Start Date End Date Ross Campbell, TAWNYA [address] [place] [address] PCP - General Nurse Practitioner Family 02/11/21 documented as of this encounter
--- OUTSIDE RECORDS SUMMARY | 2024-06-07 10:56 | XMS_ITS | Encounter Summary ---
Author Organization [facility] Address [address] [place] [address]. [place], [place] [address] [place] [address] Care Team Providers Care Business Analytics Analyst Name Role Phone Ross Campbell Primary Care Provider +1- [phone] Encounter Details Date Type Department Care Team (Latest Contact Info) Description 07/14/2021 Scan HEALTH INFO SRVCS Scanned, Documents Social [...] COVID-19? No / Unsure 07/06/2021 3:39 PM MOTORS AND CONTROLS TESTER documented as of this encounter Plan of Treatment Not on file documented as of this encounter Visit Diagnoses Not on filedocumented in this encounter Care Teams Business Analytics Analyst Relationship Specialty Start Date End Date Ross Campbell FNP [address] [place] [address] PCP - General Nurse Practitioner Family 02/11/21 documented as of this encounter
--- OUTSIDE RECORDS SUMMARY | 2024-06-07 10:56 | XMS_ITS | Encounter Summary ---
Author Organization [facility] Address [address] [place] [address]. [place] [address] [place] [address] Care Team Providers Care Oil Seal Assembler Name Role Phone Ross Campbell Primary Care Provider +1- [phone] Reason for Visit * Reason Onset Date Comments Information 09/23/2021 Encounter Details Date Type Department Care Team (Late st Contact Info) Description 09/23/2021 Telephone [facility] Medical [facility] General Surgery [address], [facility] [address] [place] [address] [place] [address] [place] [address] Information Social History Tobacco Use Types Packs/Day Years Used Date Smoking Tobacco: Never Smokeless Tobacco: Never Comments No Sex and Gender Information Value Date Recorded Sex Assigned at Not on file Legal Sex Female 8:23 PM CDT Gender Identity Not on file Sexual Orientation Not on file documented as of this encounter Progress Notes * Vidya Blair RN - 09/23/2021 3:19 PM CDT Patient returned call asking if I could send her right knee MRI arthrogram results, and all of her office visit notes since 02/11/2021 to her sales lead generator manager of case Gerda Mancera. She stated that they have requested these forms but they have not received them yet. Fax number of [phone]. Informed Amelia that I would fax this information to Gerda. * Vidya Blair RN - 09/23/2021 2:45 PM CDT Attempted to return the patients call. Voice message left for the patient to return our call upon receiving. * Karma Ramirez - 09/23/2021 1:58 PM CDT Patient called with a few questions. Give her a call. Thanks :) documented in this encounter Plan of Treatment Not on file documented as of this encounter Visit Diagnoses Not on filedocumented in this encounter Care Teams Oil Seal Assembler Relationship Specialty Start Date End Date Ross Campbell FNP [address] [place] [address] PCP - General Nurse Practitioner Family 02/11/21 documented as of this encounter
--- OUTSIDE RECORDS SUMMARY | 2024-06-07 10:56 | XMS_ITS | Encounter Summary ---
Author Organization [facility] Address [address] [place] [address]. [place] [address] [place] [address] Care Team Providers Care Artificial Flowers Supervisor Name Role Phone Ross Campbell Primary Care Provider +1- [phone] Reason for Visit * Reason Onset Date Comments Note From Provider Request 04/15/2021 Encounter Details Date Type Department Care Team (Late st Contact Info) Description 04/15/2021 Telephone [facility] Medical [facility] Orthopedic Surgery-[place] [address] [place], [place] [phone] [place] [address] [address] [place], [place] [phone] Note From Provider Request Social History Tobacco Use Types Packs/Day [...] have Coronavirus / COVID-19? No / Unsure 04/06/2021 2:42 PM CDT documented as of this encounter Progress Notes * Rachel Bhatti RN - 04/16/2021 8:[address] Gee, no note will be given to be off work. Patient notified and verbalizes understanding. She would like us to fax her new employment evaluator/case manager for [employer] to try and obtain viscosupplement injection. Case#[id number]. Fax number is [phone]. Faxed request for viscosupplement injection. ER REPAIRER * Rachel Bhatti RN - 04/15/2021 11:28 AM CST Patient calls and is requesting a note to be off work until she sees the propeller engineer's doctor on 04/21/21. Ok for note? Please advise. ER REPAIRER documented in this encounter Plan of Treatment Not on file documented as of this encounter Visit Diagnoses Not on filedocumented in this encounter Care Teams Artificial Flowers Supervisor Relationship Specialty Start Date End Date Ross Campbell, NEON LIGHT INSTALLER [address] [place] [address] PCP - General Nurse Practitioner Family 02/11/21 documented as of this encounter
--- OUTSIDE RECORDS SUMMARY | 2024-06-07 10:56 | XMS_ITS | Encounter Summary ---
Author Organization [facility] Address [address] [place] [address]. [place] [address] [place] [address] Care Team Providers Care Supply Chain Vice President Name Role Phone Ross Campbell Primary Care Provider +1- [phone] Reason for Visit * Reason Onset Date Comments Other 06/23/2021 Encounter Details Date Type Department Care Team (Late st Contact Info) Description 06/23/2021 Telephone [facility] Medical [facility] Orthopedic Surgery-[place] [address] [place] [address] Dillan Gee, [address] [place] [address] Other Social History Tobacco Use Types Packs/Day Years Used Date Smoking Tobacco: Never Smokeless Tobacco: Never Comments No Sex and Gender Information Value Date Recorded Sex Assigned at Not on file Legal Sex Female 8:23 PM CDT Gender Identity Not on file Sexual Orientation Not on file documented as of this encounter Progress Notes * Rachel Bhatti RN - 06/24/2021 10:59 AM CST Called and spoke with Hali. She questions if Dr. Gee agreed with getting an MRI arthrogram of that knee. I advised that I did attempt to call Olman Mckeon. She states that she is thenurse foster care case manager. She would like order faxed to [phone]. Order placed and faxed. HAULAWAY DRIVER * Lauren Cohen - 06/23/2021 1:38 PM CST Hali from [facility] called and is looking for info or has questions on this patient Would like you to return a call to her at [phone] , she called at 1:40pm you was at MRI. Thank You HAULAWAY DRIVER documented in this encounter Plan of Treatment Not on file documented as of this encounter Visit Diagnoses Diagnosis History of arthroscopy of right knee- Primary Other postprocedural status Primary osteoarthritis of right knee Primary localized osteoarthrosis, lower leg documented in this encounter Care Teams Supply Chain Vice President Relationship Specialty Start Date End Date Ross Campbell, LEACH RUNNER [address] [place] [address] PCP - General Nurse Practitioner Family 02/11/21 documented as of this encounter
--- OUTSIDE RECORDS SUMMARY | 2024-06-07 10:56 | XMS_ITS | Encounter Summary ---
Author Organization [facility] Address [address] [place] [address]. [address] Care Team Providers Care Health Unit Clerk Name Role Phone Ross Campbell Primary Care Provider +1- [phone] Reason for Visit * Reason Onset Date Comments Information 08/11/2021 Encounter Details Date Type Department Care Team (Late st Contact Info) Description 08/11/2021 Telephone [facility] Medical [facility] Orthopedic Surgery-[place] [address] [place], [place] [phone] Dillan Gee, [address] [place] [address] Information Social History Tobacco Use Types Packs/Day Years Used Date Smoking Tobacco: Never Smokeless Tobacco: Never Comments No Sex and Gender Information Value Date Recorded Sex Assigned at Not on file Legal Sex Female 8:23 PM CDT Gender Identity Not on file Sexual Orientation Not on file documented as of this encounter Progress Notes * Georgiana Alonzo MA - 08/12/2021 8:29 AM CST Patient is aware that MRArthrogram came back normal, [facility] has also been informed about results andstated they will call patient OR GROUP MANAGER * Karma Ramirez - 08/11/2021 9:50 AM CSTSummary: information Patient just called and stated that she needs to know the next step with her care. Her day care worker was asking. She is a work comp case. She also was asking about a therapy order that was put in. Give her a call. Thanks :) OR GROUP MANAGER documented in this encounter Plan of Treatment Not on file documented as of this encounter Visit Diagnoses Not on filedocumented in this encounter Care Teams Health Unit Clerk Relationship Specialty Start Date End Date Ross Campbell FNP [address] [place] [address] PCP - General Nurse Practitioner Family 02/11/21 documented as of this encounter
--- OUTSIDE RECORDS SUMMARY | 2024-06-07 10:57 | XMS_ITS | Encounter Summary ---
Author Organization [facility] Address [address] [place] [address]. [place], [place] [phone] [place] [address] Care Team Providers Care Teacher Resource Name Role Phone Ross Campbell Primary Care Provider +1- [phone] Encounter Details Date Type Department Care Team (Latest Contact Info) Description 07/03/2020 Scan [facility] HEALTH INFO SRVCS Scanned, Doc Med Group Social History Tobacco Use Types Packs/Day Years Used Date Smoking Tobacco: Never Assessed Comments Unknown Sex and Gender Information Value Date Recorded Sex Assigned at Not on file Legal Sex Female 8:23 PM CDT Gender Identity Not on file Sexual Orientation Not on file COVID-19 Exposure Response Date Recorded In the last 10 days, have yo u been in contact with someone who was confirmed or suspected to have Coronavirus/COVID-19? No / Unsure 05/25/2022 1:17 PM ANALYST BUSINESS ANALYSIS documented as of this encounter Plan of Treatment Not on file documented as of this encounter Visit Diagnoses Not on filedocumented in this encounter Care Teams Teacher Resource Relationship Specialty Start Date End Date Ross Campbell FNP [address] [place] [address] PCP - General Nurse Practitioner Family 02/11/21 documented as of this encounter
--- OUTSIDE RECORDS SUMMARY | 2024-06-07 10:57 | XMS_ITS | Encounter Summary ---
Author Organization [facility] Address [address] [place] [address]. [place] [address] [place] [address] Care Team Providers Care Community Assistant Name Role Phone Ross Campbell Primary Care Provider +1- [phone] Reason for Visit * Reason Onset Date Comments Other 04/09/2021 Encounter Details Date Type Department Care Team (Late st Contact Info) Description 04/09/2021 Telephone [facility] Medical [facility] Orthopedic Surgery-[place] [address] [place], [place] [phone] [place] [address] [address] [place], [place] [phone] Other Social History Tobacco Use Types Packs/Day [...] Progress Notes * Rachel Bhatti RN - 04/12/2021 12:12 PM CST Called and spoke with Hali. 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 Faxed order to [phone]. ICAL EQUIPMENT REPAIRER * Bernarda Potter - 04/09/2021 12:20 PM CDT Needs the PT for work calderón order. Thanks documented in this encounter Plan of Treatment Not on file documented as of this encounter Visit Diagnoses Not on filedocumented in this encounter Care Teams Community Assistant Relationship Specialty Start Date End Date Ross Campbell, BACKEND JAVA DEVELOPER [address] [place] [address] PCP - General Nurse Practitioner Family 02/11/21 documented as of this encounter
--- OUTSIDE RECORDS SUMMARY | 2024-06-07 10:57 | XMS_ITS | Encounter Summary ---
Author Organization [facility] Address [address] [place] [address]. [place], [place] [address] [place] [address] Care Team Providers Care Wrapper Stemmer Hand Name Role Phone Ross Campbell Primary Care Provider +1- [phone] Encounter Details Date Type Department Care Team (Latest Contact Info) Description 02/11/2021 Travel Social History Tobacco Use Types Packs/Day Years Used Date Smoking Tobacco: Never Smokeless Tobacco: Never Comments Unknown Sex and Gender Information Value Date Recorded Sex Assigned at Not on file Legal Sex Female 8:23 PM CDT Gender Identity Not on file Sexual Orientation Not on file COVID-19 Exposure Response Date Recorded In the last month, have you been in contact with someone who was confirmed or suspected to have Coronavirus / COVID-19? No / Unsure 02/11/2021 2:19 PM CDT documented as of this encounter Plan of Treatment Not on file documented as of this encounter Visit Diagnoses Not on filedocumented in this encounter Care Teams Wrapper Stemmer Hand Relationship Specialty Start Date End Date Ross Campbell FNP [address] [place] [address] PCP - General Nurse Practitioner Family 02/11/21 documented as of this encounter
--- OUTSIDE RECORDS SUMMARY | 2024-06-07 10:57 | XMS_ITS | Encounter Summary ---
Author Organization [facility] Address [address] [place] [address]. [place] [address] [place] [address] Care Team Providers Care Ammunition Storage Superintendent Name Role Phone Ross Campbell Primary Care Provider +1- [phone] Reason for Referral * Physical Medicine (Routine) - Closed Specialty Diagnoses / Procedures Referred By Jodi alcantara Referred To Contact PHYSICAL THERAPY / [facility] Physical Therapy Diagnoses Primary osteoarthritis of right knee Dillan Gee DO Phone: tel: fax: [facility] [address] [place] [address] Phone: tel: fax: Referral ID Status Reason Start Date Expiration Date V isits Requested Visits Authorized [id number] Closed Physical Therapy 02/11/2021 03/13/2022 1 1 Scheduling Instructions Work Hardening please. Patient is workman's comp. Reason for Visit * Reason Comments New Patient right knee pain and swelling Encounter Details Date Type Department Care Team (Late st Contact Info) Description 02/11/2021 2:20 PM CDT Office Visit [facility] [address] [address] [place] [address] [place] [address] New Patient (right knee pain and swelling ) Social History Tobacco Use Types Packs/Day Years [...] Sign Reading Time Taken Comments Blood Pressure - - Pulse - - Temperature - - Respiratory Rate 20 02/11/2021 2:29 PM CDT Oxygen Saturation - - Inhaled Oxygen Concentration - - Weight 73.9 kg (163 lb) 02/11/2021 2:29 PM CDT Height 153.7 cm (5' 0.5 ) 02/11/2021 2:29 PM CDT Body Mass Index 31.31 02/11/2021 2:29 PM CDT documented in this encounter Progress Notes * Dillan Gee DO - 02/14/2021 9:58 AM CDTAssociated Problem(s): History of arthroscopy of right knee We discussed the risks, benefits and alternatives. No need for further surgery. Begin diclofenac. Begin formal physical therapy with work hardening. May require functional capacity evaluation after finishing work hardening program * Dillan Gee DO - 02/14/2021 9:58 AM CDTAssociated Problem(s): BMI 31.0-31.9,adult We discussed the adverse effects of weight on osteoarthritis of the knee. For every 1 pound loss, 4to 6 pounds of stress is relieved from the knee. We discussed low carbohydrate diet to help with weight loss. 80% of weight loss is through diet. * Dillan Gee DO - 02/14/2021 9:57 AM CDTAssociated Problem(s): Primary osteoarthritis of right knee [...] Preapproval for viscosupplementation. Follow-up in 6 weeks * Dillan Gee DO - 02/11/2021 2:20 PM CDT Images from the original note were not included. Office Visit Reason for Visit: New Patient (right knee pain and swelling ) History of Present Illness: Amelia Schneider is a 45-year-old female who presents for evaluation of right knee pain and discomfort. Apparently on July 02 she fell over a pallet at work and landed onto her knee. She states thishappened at 1:20 PM and left work at 1:25 PM. Prior to the fall she did not have any significant pain but she did have crepitus to range of motion. She eventually went to the urgent care on Monday because of the pain and discomfort. She was told that it was bruised, inflamed and that she had osteoarthritis. Started having increasing pain and discomfort. 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 She states that she needs to go up and down stairs, push laundry. She went home tried rest, ice, compression and elevation along with a knee brace. She has tried Naprosyn as well as meloxicam. When the knee would not move she followed up with her primary care and was put on light duty but apparently they do not have much light duty there. The Naprosyn made her sick to her stomach. Most of her pain is anterior. She eventually got an MRI of her knee on which showed meniscal tear and osteoarthritic changes. She did not go to work. Eventually she followed up with Dr. Owens in October and underwent diagnostic and operative arthroscopy of the right knee with partial medial meniscectomy and chondroplasty on November 05, 2020. Apparently, she was frustrated with the physician as he tried to get her to go back to work and she called our office. She was told that she was still in the global. Mid November and she called back to schedule a second opinion at the end of the 90-day global period. She states that she did have some physical therapy after surgery but it only helped minimal. Denies any fevers or chills, numbness or tingling, shortness of breath or difficulty breathing. She describes it being swollen lateral with burning sensation and razor blades. She has not had steroid or gel shot. Review of Systems: Constitutional: Negative for chills [...] Outpatient Medications Marked as Taking for the 02/11/21 encounter (Office Visit) with Dillan Gee,DO Medication Sig Dispense Refill ??? cetirizine 10 MG tablet Take 10 mg by mouth daily. ??? CREON [id number] units capsule TAKE 1 CAPSULE BY MOUTH THREE TIMES DAILY WITH MEALS AND OR SNACKS ??? diclofenac EC 75 MG tablet Take [...] Heart Disease Mother Vital Signs: Filed Vitals: 02/11/21 1429 Resp: 20 Weight: 73.9 kg (163 lb) Height: 5' 0.5 (1.537 m) Estimated BMI Today: Estimated body mass index is 31.31 kg/m?? as calculated from the following: Height as of this encounter: 5' 0.5 (1.537 m). Weight as of this encounter: 73.9 kg (163 lb). Physical Exam: Constitutional: she is oriented [...] Nursing note and vitals reviewed. Ortho Exam: Pelvis is stable to compression and rock. Hips have good pain-free range of motion with no impingement. Negative straight leg, braggart's and Lasegue's. Mild effusion of the right knee. Mild swellingof the right leg. She did show pictures of her leg with swelling after the surgery and after a fullday of work. Portal sites are well-healed with no evidence of erythema, induration or drainage. Only slightly decreased range of motion in flexion and extension on the right compared to the left. Hypersensitivity to any of the skin. Calves are soft and nontender with no evidence of DVT or infection. No open wound or skin breakdown. No clubbing, cyanosis, edema or adenopathy. Medial and lateral joint line tenderness. Equivocal Jaime. Positive crepitus to range of motion. Positive grind test. Negative apprehension. Negative ballotable patella. Stable to varus and valgus stress. Stable to anterior posterior drawer. Neurovascularly intact. Full extension and at least 115 degrees of flexion. Imaging: There are no x-rays to review as she did not get any. The previous MRI showed the meniscal tear as well as the osteoarthritic changes. We reviewed the pictures from her arthroscopy showing the degenerative changes to the patella and trochlear groove and medial femoral condyle. Tears were debrided. Assessment/Plan: Problem List Items Addressed This Visit Musculoskeletal Primary osteoarthritis of right knee - [...] Preapproval for viscosupplementation. Follow-up in 6 weeks Relevant Medications diclofenac EC 75 MG tablet Other Relevant Orders Ambulatory referral to Physical Therapy Endocrine BMI 31.0-31.9,adult We discussed the adverse effects of weight on osteoarthritis of the knee. For every 1 pound loss, 4to 6 pounds of stress is relieved from the knee. We discussed low carbohydrate diet to help with weight loss. 80% of weight loss is through diet. Other History of arthroscopy of right knee We discussed the risks, benefits and alternatives. No need for further surgery. Begin diclofenac. Begin formal physical therapy with work hardening. May require functional capacity evaluation after finishing work hardening program DILLAN GEE DO 02/11/2021 documented in this encounter Plan of Treatment Scheduled Referrals Name Type Priority Associated Diagnoses Orde r Schedule Ambulatory referral to Physical Therapy Referral Routine Primary osteoarthritis of right knee Ordered: 02/11/2021 documented as of this encounter Visit Diagnoses Diagnosis Primary osteoarthritis of right knee- Primary Primary localized osteoarthrosis, lower leg BMI 31.0-31.9,adult Body Mass Index 31.0-31.9, adult History of arthroscopy of right knee Other postprocedural status documented in this encounter Care Teams Ammunition Storage Superintendent Relationship Specialty Start Date End Date Ross Campbell, TAWNYA [address] [place] [address] PCP - General Nurse Practitioner Family 02/11/21 documented as of this encounter
--- OUTSIDE RECORDS SUMMARY | 2024-06-07 10:57 | XMS_ITS | Encounter Summary ---
Author Organization [facility] Address [address] [place] [address]. [place], [place] [address] [place] [address] Care Team Providers Care Oracle Etl Developer Name Role Phone Ross Campbell Primary Care Provider +1- [phone] Encounter Details Date Type Department Care Team (Latest Contact Info) Description 03/09/2021 Travel Social History Tobacco Use Types Packs/Day [...] have Coronavirus / COVID-19? No / Unsure 03/09/2021 3:10 PM CDT documented as of this encounter Plan of Treatment Not on file documented as of this encounter Visit Diagnoses Not on filedocumented in this encounter Care Teams Oracle Etl Developer Relationship Specialty Start Date End Date Ross Campbell FNP [address] [place] [address] PCP - General Nurse Practitioner Family 02/11/21 documented as of this encounter
--- OUTSIDE RECORDS SUMMARY | 2024-06-07 10:57 | XMS_ITS | Encounter Summary ---
Author Organization [facility] Address [address] [place] [address]. [place] [address] [place] [address] Care Team Providers Care Plant Manager Name Role Phone Ross Campbell Primary Care Provider +1- [phone] Reason for Visit * Reason Onset Date Comments Other 02/17/2021 Encounter Details Date Type Department Care Team (Late st Contact Info) Description 02/17/2021 Telephone [facility] Orthopedic [facility] [address] [place], [place] [id number] Dillan Gee, [address] [address] [place], [place] [id number] Other Social History Tobacco Use Types Packs/Day [...] Progress Notes * Rachel Bhatti RN - 02/17/2021 1:19 PM CDT Called patient and she states that Fatuma called her yesterday. She got a call today from [facility] in [place] today. I advised to keep with Fatuma since they are working on getting her approved through workman's comp. * Lauren Cohen - 02/17/2021 12:50 PM CDT Patient is confused about where the PT order are going to, please call her Thanks documented in this encounter Plan of Treatment Not on file documented as of this encounter Visit Diagnoses Not on filedocumented in this encounter Care Teams Plant Manager Relationship Specialty Start Date End Date Ross Campbell, TAWNYA [address] [place] [address] PCP - General Nurse Practitioner Family 02/11/21 documented as of this encounter
--- OUTSIDE RECORDS SUMMARY | 2024-06-07 10:57 | XMS_ITS | Encounter Summary ---
Author Organization [facility] Address [address] [place] [address]. [place], [place] [address] [place] [address] Care Team Providers Care Engineer Byproduct Name Role Phone Unavailable Primary Care Provider Unavailabl e Encounter Details Date Type Department Care Team (Late st Contact Info) Description 10/21/[address] [facility] Care [address] [place] [address] Liz Saldaña, DANYELL [address] [place] [address] Social History Tobacco Use Types Packs/Day Years Used Date Smoking Tobacco: Never Assessed Comments Unknown Sex and Gender Information Value Date Recorded Sex Assigned at Not on file Legal Sex Female 8:23 PM CDT Gender Identity Not on file Sexual Orientation Not on file documented as of this encounter Plan of Treatment Not on file documented as of this encounter Visit Diagnoses Diagnosis Acute bronchitis documented in this encounter
--- OUTSIDE RECORDS SUMMARY | 2024-06-07 10:57 | XMS_ITS | Encounter Summary ---
Author Organization [facility] Address [address] [place] [address]. [place], [place] [address] [place] [address] Care Team Providers Care Pricing Actuary Name Role Phone Unavailable Primary Care Provider Unavailabl e Encounter Details Date Type Department Care Team (Late st Contact Info) Description 04/06/2015 Abstract [facility] [address] [place] [address] Ran Naidu MD [address] [address] Social History Tobacco Use Types Packs/Day Years Used Date Smoking Tobacco: Never Assessed Comments Unknown Sex and Gender Information Value Date Recorded Sex Assigned at Not on file Legal Sex Female 8:23 PM CDT Gender Identity Not on file Sexual Orientation Not on file documented as of this encounter Plan of Treatment Not on file documented as of this encounter Visit Diagnoses Diagnosis Sprain of ligaments of cervical spine Sprain of neck documented in this encounter
--- OUTSIDE RECORDS SUMMARY | 2024-06-07 10:57 | XMS_ITS | Encounter Summary ---
Author Organization [facility] Address [address] [place] [address]. [place], [place] [address] [place] [address] Care Team Providers Care Children'S Service Worker Name Role Phone Ross Campbell Primary Care Provider +1- [phone] Reason for Visit * Reason Comments Procedure (SCAN) Encounter Details Date Type Department Care Team ([facility] Contact Info) Description 11/05/2020 Scan HEALTH INFO [facility] Scanned, Documents Procedure (SCAN) Social History Tobacco Use Types Packs/Day [...] Procedure Name Priority Date/Time Associated Diagnosis Comments PROCEDURE GENERIC (SCAN ORDER) 11/05/2020 documented in this encounter Results * PROCEDURE GENERIC (11/05/2020) 11/05/2020 Narrative 11/05/2020 Ordered by an unspecified provider. us Documents Scanned SCANNING Final Result documented in this encounter Visit Diagnoses Not on filedocumented in this encounter Care Teams Children'S Service Worker Relationship Specialty Start Date End Date Ross Campbell FNP [address] [place] [id number] PCP - General Nurse Practitioner Family 02/11/21 documented as of this encounter
--- OUTSIDE RECORDS SUMMARY | 2024-06-07 10:57 | XMS_ITS | Encounter Summary ---
Author Organization [facility] Address [address] [place] [address]. [place] [address] [place] [address] Care Team Providers Care School Office Manager Name Role Phone Ross Campbell Primary Care Provider +1- [phone] Reason for Visit * Reason Comments Follow Up Right knee Encounter Details Date Type Department Care Team (Late st Contact Info) Description 04/06/2021 3:00 PM CDT Office Visit [facility] [address] [place] [address] [place] [address] [place] [address] Follow Up (Right knee ) Social History Tobacco Use Types Packs/Day [...] Sign Reading Time Taken Comments Blood Pressure 114/82 04/06/2021 2:45 PM CDT Pulse 100 04/06/2021 2:45 PM CDT Temperature 36.6 ??C (97.8 ??F) 04/06/2021 2:45 PM CD T Respiratory Rate 16 04/06/2021 2:45 PM CDT Oxygen Saturation 99% 04/06/2021 2:45 PM CDT Inhaled Oxygen Concentration - - Weight 73.5 kg (162 lb 0.6 oz) 04/06/2021 2:45 P M CDT Height 153.7 cm (5' 0.5 ) 04/06/2021 2:45 PM CDT Body Mass Index 31.12 04/06/2021 2:45 PM CDT documented in this encounter Progress Notes * Dillan Gee DO - 04/07/2021 12:41 PM CDTAssociated Problem(s): BMI 31.0-31.9,adult We discussed the adverse effects of weight on osteoarthritis of the knee. For every 1 pound loss, 4to 6 pounds of stress is relieved from the knee. We discussed low carbohydrate diet to help with weight loss. 80% of weight loss is through diet. * Dillan Gee DO - 04/07/2021 12:40 PM CDTAssociated Problem(s): Primary osteoarthritis of right knee We discussed the risks, benefits and alternatives. At this point in time we have had a difficult time getting approval for Visco supplement and work hardening. Will repeat the request for preapprovalfor viscosupplementation. Repeat the request for work hardening program. I understand that the arthritis was not caused by the injury but was certainly aggravated by the injury. Hopefully we can get these approved and will call her to let her reschedule an appointment. * Dillan Gee DO - 04/06/2021 3:00 PM CDT Images from the original note were not included. Office Visit Reason for Visit: Follow Up (Right knee ) History of Present Illness: Amelia Schneider is a 45-year-old female who presents for follow-up evaluation of her right knee. Again, she underwent diagnostic and operative arthroscopy with partial medial meniscectomy by another physician. She was dissatisfied with the outcome and followed up with us. Unfortunately we have been unsuccessful at getting Visco supplement approved and work hardening approved. She has been unable to work because she states that they have no light duty at work. She is still finding it difficult tosleep at night as well as stairs. Most of the pain is to the anterior aspect of her knee. She states that the steroid injection did help get the swelling down but still has a fair amount of pain interfering with her normal activities of daily living Review of Systems: Constitutional: Negative for chills [...] Outpatient Medications Marked as Taking for the 04/06/21 encounter (Office Visit) with Dillan Gee, DO Medication Sig Dispense Refill ??? cetirizine 10 MG tablet Take 10 mg by mouth daily. ??? CREON [id number] units capsule TAKE 1 CAPSULE BY MOUTH THREE TIMES DAILY WITH MEALS AND OR SNACKS ??? diclofenac EC 75 MG tablet Take 1 tablet (75 mg total) by mouth 2 (two) times daily. 60 tablet 1 ??? montelukast 10 MG tablet Take 10 mg by mouth daily. ??? UBRELVY 50 MG tablet TAKE 1 TABLET BY MOUTH SINGLE DOSE. MAY REPEAT ONCE AFTER 2 HOURS IF NEEDED. ??? valACYclovir 1 g tablet TAKE 1 TABLET BY MOUTH EVERY 8 HOURS FOR 7 DAYS Allergies Allergen Reactions ??? General Anesthesia Nausea [...] Heart Disease Mother Vital Signs: Filed Vitals: 04/06/21 1445 BP: 114/82 Pulse: 100 Resp: 16 Temp: 97.8 ??F (36.6 ??C) SpO2: 99% Weight: 73.5 kg (162 lb 0.6 oz) Height: 5' 0.5 (1.537 m) Estimated BMI Today: Estimated body mass index is 31.12 kg/m?? as calculated from the following: Height as of this encounter: 5' 0.5 (1.537 m). Weight as of this encounter: 73.5 kg (162 lb 0.6 oz). Physical Exam: Constitutional: she is oriented [...] Pelvis is stable to compression and rock. Abdomen is soft and overweight. Hips have good pain-free range of motion with no impingement. Negative straight leg, braggart's and Lasegue's. Portal sites are well-healed with no evidence of erythema, induration or drainage. No significant effusion today. Negative ballotable patella. Negative fluid wave. Positive crepitus range of motion to the patellofemoral joint. Hypersensitive. Positive grind test. Negative apprehension. Calves are soft and nontender with no evidence of DVT or infection. No open wound or skin breakdown. No clubbing, cyanosis, edema or adenopathy Imaging: No new x-rays Assessment/Plan: Problem List Items Addressed This Visit Musculoskeletal Primary osteoarthritis of right knee - Primary We discussed the risks, benefits and alternatives. At this point in time we have had a difficult time getting approval for Visco supplement and work hardening. Will repeat the request for preapprovalfor viscosupplementation. Repeat the request for work hardening program. I understand that the arthritis was not caused by the injury but was certainly aggravated by the injury. Hopefully we can get these approved and will call her to let her reschedule an appointment. Endocrine BMI 31.0-31.9,adult We discussed the adverse effects of weight on osteoarthritis of the knee. For every 1 pound loss, 4to 6 pounds of stress is relieved from the knee. We discussed low carbohydrate diet to help with weight loss. 80% of weight loss is through diet. DILLAN GEE DO 04/06/2021 documented in this encounter Plan of Treatment Not on file documented as of this encounter Visit Diagnoses Diagnosis Primary osteoarthritis of right knee- Primary Primary localized osteoarthrosis, lower leg BMI 31.0-31.9,adult Body Mass Index 31.0-31.9, adult documented in this encounter Care Teams School Office Manager Relationship Specialty Start Date End Date Ross Campbell FNP [address] [place] [address] PCP - General Nurse Practitioner Family 02/11/21 documented as of this encounter
--- OUTSIDE RECORDS SUMMARY | 2024-06-07 10:57 | XMS_ITS | Encounter Summary ---
Author Organization [facility] Address [address] [place] [address]. [place] [address] [place] [address] Care Team Providers Care Glass Products Inspector Name Role Phone Ross Campbell Primary Care Provider +1- [phone] Reason for Visit * Reason Comments Follow Up right knee Encounter Details Date Type Department Care Team (Late st Contact Info) Description 03/09/2021 3:00 PM CDT Office Visit [facility] [address] [place] [address] [place] [address] [place] [address] Follow Up (right knee ) Social History Tobacco Use Types [...] Sign Reading Time Taken Comments Blood Pressure 122/82 03/09/2021 3:18 PM CDT Pulse 94 03/09/2021 3:18 PM CDT Temperature 36.6 ??C (97.9 ??F) 03/09/2021 3:18 PM CD T Respiratory Rate 16 03/09/2021 3:18 PM CDT Oxygen Saturation 97% 03/09/2021 3:18 PM CDT Inhaled Oxygen Concentration - - Weight 73.9 kg (162 lb 14.7 oz) 03/09/2021 3:18 PM CDT Height 153.7 cm (5' 0.5 ) 03/09/2021 3 :18 PM CDT Body Mass Index 31.29 03/09/2021 3:18 PM CDT documented in this encounter Progress Notes * Dillan Gee DO - 03/09/2021 6:57 PM CDTAssociated Problem(s): BMI 31.0-31.9,adult We discussed the adverse effects of weight on osteoarthritis of the knee. For every 1 pound loss, 4to 6 pounds of stress is relieved from the knee. We discussed low carbohydrate diet to help with weight loss. 80% of weight loss is through diet. * Dillan Gee DO - 03/09/2021 6:55 PM CDTAssociated Problem(s): Primary osteoarthritis of right [...] note for avoid kneeling, squatting, running, stairs. * Dillan Gee DO - 03/09/2021 3:00 PM CDT Images from the original note were not included. Office Visit Reason for Visit: Follow Up (right knee ) History of Present Illness: Amelia Schneider is a 45-year-old female who presents for follow-up evaluation of right knee pain anddiscomfort. Patient still states that she has difficulty sleeping at night. Most of her pain is underneath the kneecap and having difficulty with stairs. Unfortunately, she developed shingles so she stopped the diclofenac but she was taking the other medications. She is utilizing a TENS unit 3 times a day for about 40 minutes with minimal relief. States that there is no light duty at her work andshe would not be able to do the kneeling, squatting that is required. Review of Systems: Constitutional: Negative for chills [...] Outpatient Medications Marked as Taking for the 03/09/21 encounter (Office Visit) with Dillan Gee, DO Medication Sig Dispense Refill ??? cetirizine 10 MG tablet Take 10 mg by mouth daily. ??? CREON [id number] units capsule TAKE 1 CAPSULE BY MOUTH [...] Heart Disease Mother Vital Signs: Filed Vitals: 03/09/21 1518 BP: 122/82 Pulse: 94 Resp: 16 Temp: 97.9 ??F (36.6 ??C) SpO2: 97% Weight: 73.9 kg (162 lb 14.7 oz) Height: 5' 0.5 (1.537 m) Estimated BMI Today: Estimated body mass index is 31.29 kg/m?? as calculated from the following: Height as of this encounter: 5' 0.5 (1.537 m). Weight as of this encounter: 73.9 kg (162 lb 14.7 oz). Physical Exam: Constitutional: she is oriented [...] Pelvis is stable to compression and rock. No significant effusion. Negative ballotable patella. Mildly positive fluid wave. Still hypersensitive. Portal sites are well-healed with no evidence of erythema, induration or drainage. Stable to varus and valgus stress. Positive crepitus to range of motion to the patellofemoral joint. Positive grind test. Negative apprehension. Imaging: No new x-rays Assessment/Plan: Problem List [...] note for avoid kneeling, squatting, running, stairs. Relevant Orders DRAIN/INJECT LARGE JOINT/BURSA Endocrine BMI 31.0-31.9,adult We discussed the adverse effects of weight on osteoarthritis of the knee. For every 1 pound loss, 4to 6 pounds of stress is relieved from the knee. We discussed low carbohydrate diet to help with weight loss. 80% of weight loss is through diet. Procedure: We discussed the risks, benefits and alternatives. All questions were answered and informed consentis obtained. The right knee is prepped with alcohol and Betadine. Under sterile technique an 18-gauge needle was inserted to the medial patellofemoral joint and 6 milliliters of synovial fluid is aspirated. 80 mg of Depo-Medrol and 4 mL of bupivacaine 0.5% plain are instilled. Patient tolerated theprocedure well without adverse effects. Area is cleansed and a Band-Aid is placed. DILLAN GEE DO 03/09/2021 documented in this encounter Plan of Treatment Scheduled Orders Name Type Priority Associated Diagnoses Orde r Schedule DRAIN/INJECT LARGE JOINT/BURSA Procedures Routine Primary osteoarthritis of right knee Ordered: 03/09/2021 documented as of this encounter Visit Diagnoses Diagnosis Primary osteoarthritis of right knee- Primary Primary localized osteoarthrosis, lower leg BMI 31.0-31.9,adult Body Mass Index 31.0-31.9, adult documented in this encounter Administered Medications Inactive Administered Medications - up to 3 most recent administrations Medication Order MAR Action Action Date Dose Rate Site BUpivacaine 0.5 % (MARCAINE) 0.5 % injection 4 mL 4 mL, Intra-articular, Once, 1 dose, On Mon03/09/21 at 1615Indications:Primary osteoarthritis of right knee Given 03/09/2021 3:58 PM CDT 4 mLs Right Knee methylPREDNISolone acetate (DEPO-Medrol) injection 80 mg 80 mg, Intra-articular, Once, 1 dose, On Mon03/09/21 at 1615, Rishike WellIndications:Primary osteoarthritis of right knee Given 03/09/2021 3:59 PM CDT 80 mg Right Knee documented in this encounter Care Teams Glass Products Inspector Relationship Specialty Start Date End Date Ross Campbell, TAWNYA [address] [place] [address] PCP - General Nurse Practitioner Family 02/11/21 documented as of this encounter
--- OUTSIDE RECORDS SUMMARY | 2024-06-07 10:57 | XMS_ITS | Encounter Summary ---
Author Organization [facility] Address [address] [place] [address]. [place], [place] [address] [place] [address] Care Team Providers Care Respiratory Therapist Assistant Name Role Phone Ross Campbell Primary Care Provider +1- [phone] Encounter Details Date Type Department Care Team (Latest Contact Info) Description 04/06/2021 Travel Social History Tobacco Use Types Packs/Day [...] on filedocumented in this encounter Care Teams Respiratory Therapist Assistant Relationship Specialty Start Date End Date Ross Campbell FNP [address] [place] [address] PCP - General Nurse Practitioner Family 02/11/21 documented as of this encounter
--- OUTSIDE RECORDS SUMMARY | 2024-06-07 10:57 | XMS_ITS | Encounter Summary ---
Author Organization [facility] Address [address] [place] [address]. [place] [address] [place] [address] Care Team Providers Care County Surveyor Name Role Phone Ross Campbell Primary Care Provider +1- [phone] Reason for Visit * Reason Onset Date Comments Other 02/19/2021 Encounter Details Date Type Department Care Team (Late st Contact Info) Description 02/19/2021 Telephone [facility] Medical [facility] [address] [place], [place] [id number] [place] [address] [address] [place], [place] [id number] Other Social History Tobacco Use Types Packs/Day [...] Progress Notes * Rachel Bhatti RN - 02/22/2021 11:38 AM CDT Letter made and signed by Dr. Gee. Patient came by the office and picked up. * Rachel Bhatti RN - 02/22/2021 10:00 AM CDT Called patient. She needs note stating that she cannot work until after physical therapy is completed. She has not started PT yet because they are waiting to hear back from work comp. Can she have a letter stating that she is not able to work until after PT completed. She is to follow up in 6 weekshere in the office which would be around the end of March. Fax number to work is [phone]. * Lauren Cohen - 02/19/2021 10:54 AM CDT Patient called states that she needs a letter for work documented in this encounter Plan of Treatment Not on file documented as of this encounter Visit Diagnoses Not on filedocumented in this encounter Care Teams County Surveyor Relationship Specialty Start Date End Date Ross Campbell FNP [address] [place] [address] PCP - General Nurse Practitioner Family 02/11/21 documented as of this encounter
--- OUTSIDE RECORDS SUMMARY | 2024-06-07 10:57 | XMS_ITS | Encounter Summary ---
Author Organization [facility] Address [address] [place] [address]. [place] [address] [place] [address] Care Team Providers Care Track Layer Name Role Phone Ross Campbell Primary Care Provider +1- [phone] Reason for Visit * Reason Onset Date Comments Other 04/07/2021 Encounter Details Date Type Department Care Team (Late st Contact Info) Description 04/07/2021 Telephone [facility] Medical [facility] Orthopedic Surgery-[place] [address] [place], [place] [phone] [place] [address] [place] [address] Other Social History Tobacco Use [...] as of this encounter Progress Notes * Dillan Gee DO - 04/07/2021 3:25 PM CDT I Had Georgiana do it today. Note is done. Gave all paperwork back to [facility] * Rachel Bhatti RN - 04/07/2021 2:28 PM CDT Pamela states that they spoke with Dr. Gee this morning. Will fax note to them when he is completed with the note with work status noted as well. She states that Dr. Gee took the fax number. Dr. Gee please let me know when note is completed and the fax number that it needs sent to and I will do so. * Lauren Cohen - 04/07/2021 2:11 PM CDT Pamela wants to verifty that this patient was seen. Please call them [phone] Ext *[id number] RANDI Thank You documented in this encounter Plan of Treatment Not on file documented as of this encounter Visit Diagnoses Not on filedocumented in this encounter Care Teams Track Layer Relationship Specialty Start Date End Date Ross Campbell, TAWNYA [address] [place] [address] PCP - General Nurse Practitioner Family 02/11/21 documented as of this encounter
--- OUTSIDE RECORDS SUMMARY | 2024-06-07 10:58 | XMS_ITS | Encounter Summary ---
Author Organization [facility] Address [address] [place] [address]. [place], [place] [address] [place] [address] Care Team Providers Care Assisted Living Executive Director Name Role Phone Ross Campbell Primary Care Provider +1- [phone] Encounter Details Date Type Department Care Team (Late st Contact Info) Description 10/02/2012 Abstract [facility] CONVERSION [address] [place] [address] , Generic Conversion, Social History Tobacco Use Types Packs/Day Years [...] on filedocumented in this encounter Care Teams Assisted Living Executive Director Relationship Specialty Start Date End Date Ross Campbell FNP [address] [place] [address] PCP - General Nurse Practitioner Family 02/11/21 documented as of this encounter
--- OUTSIDE RECORDS SUMMARY | 2024-06-07 10:58 | XMS_ITS | Encounter Summary ---
Author Organization [facility] Address [address] [place] [address]. [place] [address] [place] [address] Care Team Providers Care Wood Form Builder Name Role Phone Unavailable Primary Care Provider Unavailabl e Encounter Details Date Type Department Care Team (Late st Contact Info) Description 06/16/2010 Abstract [facility] Emergency Room [address] [place] [address] Colby Gonzalez MD [place] [address] [place] [address] Social History Tobacco Use Types Packs/Day Years Used Date Smoking Tobacco: Never Assessed Comments Unknown Sex and Gender Information Value Date Recorded Sex Assigned at Not on file Legal Sex Female 8:23 PM CDT Gender Identity Not on file Sexual Orientation Not on file documented as of this encounter Plan of Treatment Not on file documented as of this encounter Visit Diagnoses Diagnosis Open wound of hand Open wound of hand except finger(s) alone, without mention of complication documented in this encounter
--- OUTSIDE RECORDS SUMMARY | 2024-06-07 10:58 | XMS_ITS | Encounter Summary ---
Author Organization [facility] Address [address] [place] [address]. [place], [place] [address] [place] [address] Care Team Providers Care Circular Knife Machine Cutter Name Role Phone Unavailable Primary Care Provider Unavailabl e Encounter Details Date Type Department Care Team (Late st Contact Info) Description 06/12/2006 Abstract [facility] [address] [place] [address] Ran Naidu MD [address] [address] Social History Tobacco Use Types Packs/Day Years [...]
--- OUTSIDE RECORDS SUMMARY | 2024-06-07 10:58 | XMS_ITS | Encounter Summary ---
Author Organization [facility] Address [address] [place] [address]. [place], [place] [address] [place] [address] Care Team Providers Care Director Global Name Role Phone Unavailable Primary Care Provider Unavailabl e Encounter Details Date Type Department Care Team (Late st Contact Info) Description 09/06/2003 Abstract [facility] [address] [place] [address] , Generic Conversion, Social History Tobacco Use [...]
--- OUTSIDE RECORDS SUMMARY | 2024-06-07 10:58 | XMS_ITS | Encounter Summary ---
Author Organization [facility] Address [address] [place] [address]. [place], [place] [address] [place] [address] Care Team Providers Care Home Care Attendant Name Role Phone Unavailable Primary Care Provider Unavailabl e Encounter Details Date Type Department Care Team (Late st Contact Info) Description 08/30/2012 Abstract [facility]hab [address] [place] [address] , Chiquis Faustin MD Social History Tobacco Use Types Packs/Day Years Used Date Smoking Tobacco: Never Assessed Comments Unknown Sex and Gender Information Value Date Recorded Sex Assigned at Not on file Legal Sex Female 8:23 PM CDT Gender Identity Not on file Sexual Orientation Not on file documented as of this encounter Plan of Treatment Not on file documented as of this encounter Visit Diagnoses Diagnosis Encounter for other physical therapy documented in this encounter
--- OUTSIDE RECORDS SUMMARY | 2024-06-07 10:58 | XMS_ITS | Encounter Summary ---
Author Organization [facility] Address [address] [place] [address]. [place], [place] [address] [place] [address] Care Team Providers Care Greeter Name Role Phone Unavailable Primary Care Provider Unavailabl e Encounter Details Date Type Department Care Team (Late st Contact Info) Description 10/07/2003 Abstract [facility] [address] [place] [address] , Generic Conversion, Social History Tobacco Use [...]
--- OUTSIDE RECORDS SUMMARY | 2024-06-07 10:58 | XMS_ITS | Encounter Summary ---
Author Organization [facility] Address [address] [place] [address]. [place], [place] [address] [place] [address] Care Team Providers Care Salicylic Acid Blender Name Role Phone Unavailable Primary Care Provider Unavailabl e Encounter Details Date Type Department Care Team (Late st Contact Info) Description 12/18/2001 Abstract [facility] [address] [place] [address] , Generic Conversion, Social History Tobacco Use [...]
--- OUTSIDE RECORDS SUMMARY | 2024-06-07 10:58 | XMS_ITS | Encounter Summary ---
Author Organization [facility] Address [address] [place] [address]. [place], [place] [address] [place] [address] Care Team Providers Care Head Of Housekeeping Name Role Phone Unavailable Primary Care Provider Unavailabl e Encounter Details Date Type Department Care Team (Late st Contact Info) Description 09/18/[address] [facility]hab [address] [place] [address] , Chiquis Faustin MD Social History Tobacco [...]
--- OUTSIDE RECORDS SUMMARY | 2024-06-07 11:10 | XMS_ITS | Continuity of Care Document ---
Author Organization [facility] Address [address] [facility] [address] [place] [address] Phone Care Team Providers Care Tennis Coach Name Role Phone Parag Cosby MD Unavailable Unavailable Allergies, Adverse Reactions, Alerts Substance Reaction Status Criticality Sulfa (Sulfonamide Antibiotics) Active No Information morphine Active No Information Procedures Procedure Date Special Narrative Report Special Narrative Report X-ray exam both knees, standing 021 X-ray exam knee, 1 or 2 views 1 Independent Medical Examination HENRIQUE Pre Payment Advance Directives Directive Yes / No Effective Date File Name No Information Encounters Encounter Description Practice Location Reason(s) For Visit Diagnoses Date Provider Providers Copied on Encounter [facility], [address], [id number], tel:[phone] [facility] Pain in right knee 2 Alea Tuttle. [address] [facility], [place], [id number] , [place]. tel: [phone] [facility], [address], [id number], [place] tel:[phone] [facility] Pain in right knee 1 Alea Tuttle. [address] [facility], [address], [id number] , [place]. tel: [phone] Independent Medical Examination HENRIQUE [facility], [address], [place], [place], [id number], [place] [phone] [facility] right knee (chief complaint) Pain in right knee 1 Alea Tuttle. [address] [facility], [address], [place], [place], [id number] , [place]. tel: [phone] [facility], [address] [facility] [address], [place], [place], [id number], [place] [phone] [facility] No Information 1 Alea Tuttle. [address] [facility], [address] [facility], [place], [place], [id number] , [place]. tel: [phone] Family History Family Member Type Diagnosis Age At Onset Problem Family history of stroke Problem Family history of Renal dise ase Problem Family history of hypertensi on Problem Family history of Arthritis Problem Family history of Cancer, un known Problem Family history of Diabetes minda villarreal Payers Payer name Insurance type Covered democrat ID Authordnega deanna(s) Ex[employer] Works [id number] Social History Type Description Quantity Date Captured Comments Sex Female Smoking Status No Information Chief Complaint And Reason For Visit No Information Reason For Referral Reason For Referral No Information Plan Of Treatment Date Type Action Status Referral Ordered: X-ray exam both knees, standing ordered Referral Ordered: X-ray exam knee, 1 or 2 views RT ordered History Of Present Illness Encounter Date Complaint History Of Prese nt Illness right knee Amelia presents to the office for right knee complaints. Functional Status Date Functional Assessmen t No Information Instructions Date Instruction Additional Infor mation No Information Assessments Type Assessment Date No Information Patient Care Teams Name Effective Dates (start - stop) Status Members No Information
== END 2024-05-31 11:03 ==
PROVIDERS: PCP Family Medicine; Visit Provider Podiatrist Foot & Ankle Surgery
PROC: (CPT 28299; principal; 2024-05-31 07:30)
PROC: (CPT 28285; 2024-05-31 07:30)
DX: M21.612 Bunion of left foot (principal); M20.42 Other hammer toe(s) (acquired), left foot; M24.478 Recurrent dislocation, left toe(s)
CPT/HCPCS: 28285; 28308; 28750; 99199; C1734

== ENCOUNTER 2024-08-14 14:03 | Outpatient (CLI) | payer OTHER, SELFPAY ==
--- NOTE | ~2024-08-14 | CT_ITS ---
CT sinus wo con Ordering provider: Josefina Campbell NP History: . J32.9 - Chronic sinusitis, unspecified . Comparison: None. Technique: Thin slice Scans CT of the paranasal sinuses was performed with coronal and sagittal refor matted images. No IV contrast. . Automated exposure control and iterative reconstruction technique w ere employed. The dose-length product was 248.16 mGy-cm. Findings: NASAL SEPTUM: Left nasal septum deviation. OSTEOMEATAL UNITS: Bilaterally patent. NASAL TURBINATES AND NASOPHARYNX: Normal. PARANASAL SINUSES: Bilateral ethmoid sinus disease. Right sphenoid sinus disease.. VISUALIZED MASTOIDS: Normal as visualized. BONES: Normal. SUPERFICIAL SOFT TISSUES/VISUALIZED BRAIN PARENCHYMA: Normal. IMPRESSION: Bilateral ethmoid and right sphenoid sinus disease. Left nasal septal deviation. Reviewed, dictated and finalized at location A.
== END 2024-08-14 14:04 | disposition home or self-care (01) ==
LOC: MICIMG 14:04
PROVIDERS: PCP Family Medicine
DX: J32.9 Chronic sinusitis, unspecified (principal); J34.2 Deviated nasal septum
CPT/HCPCS: 70486

== ENCOUNTER 2024-09-11 09:51 | Outpatient (CLI) | payer OTHER, MEDICAID, SELFPAY ==
--- NOTE | ~2024-09-11 | MM_ITS ---
EXAMINATION: MM screening rhonda BI w estevan HISTORY: Screening TECHNIQUE: Craniocaudal and mediolateral oblique 3-D tomosynthesis images were obtained and synthetic 2-D images were generated. CAD analysis was submitted and interpreted. COMPARISON: Comparison to multiple prior studies sequentially, with oldest reviewed study dated 02/2015. BREAST PARENCHYMAL COMPOSITION: Not dense: There are scattered areas of fibroglandular density. FINDINGS: There is symmetric bilateral changes of both breasts consistent with prior breast reduction surgery. There is no evidence of suspicious mass, calcification, or architectural distortion to sugg est malignancy in either breast. There has been no suspicious interval change. IMPRESSION: 1. No mammographic evidence of malignancy. 2. Recommend routine screening mammography in one year. BI-RADS Category 1: Negative Reviewed, dictated and finalized at location A.
--- OUTSIDE RECORDS SUMMARY | 2024-09-11 11:04 | XMS_ITS | Encounter Summary ---
Author Organization [facility] Address [address] [place] [address] Care Team Providers Care Merchandise Adjustment Clerk Name Role Phone Ross Campbell Primary Care Provider +1- [phone] Encounter Details Date Type Department Care Team (Late st Contact Info) Description 10/02/2012 Abstract [facility] CONVERSION [address] [place] [address] , Generic Conversion, Social History Tobacco Use [...] on filedocumented in this encounter Care Teams Merchandise Adjustment Clerk Relationship Specialty Start Date End Date Ross Campbell FNP [address] [place] [address] PCP - General Nurse Practitioner Family 02/11/21 documented as of this encounter
--- OUTSIDE RECORDS SUMMARY | 2024-09-11 11:05 | XMS_ITS | Clinical Summary ---
Author Organization [facility] Address [address] [place] [address] Care Team Providers Care Splunk Developer Name Role Phone Ross Campbell [facility] Primary Care Provider +1- [phone] Allergies Active Allergy Reactions Criticality Noted Date [...] total) by mouth daily. 1 Active CREON [id number] units capsule TAKE 1 CAPSULE BY MOUTH [...] 07/07/2021 Assessment & Plan (05/28/2022 8:07 PM ACTING INSTRUCTOR): Previous MRI is not available for review at this time. Recommend EMG/NCV. Mother now diagnosed with ALS Assessment & Plan (12/15/2021 7:06 PM CDT): Positive low back pain. History of scoliosis. Tingling down the right leg after few steps. No relief with steroids to the knee. Toes go numb. Recommend MRI for the lumbar spine. Assessment & Plan (07/07/2021 2:43 PM ACTING INSTRUCTOR): Centered around her knee. States it will [...] 07/07/2021 Assessment & Plan (07/07/2021 2:44 PM ACTING INSTRUCTOR): Might consider MRI to the lumbar spine if EMG NCV warrants Primary osteoarthritis of right knee 02/14/2021 Assessment & Plan (05/28/2022 8:06 PM ACTING INSTRUCTOR): We discussed the risks, benefits and alternatives. [...] back. Assessment & Plan (07/07/2021 2:45 PM ACTING INSTRUCTOR): We discussed the risks, benefits and alternatives. [...] 02/14/2021 Assessment & Plan (05/28/2022 8:07 PM ACTING INSTRUCTOR): Patient is down 1 BMI point and [...] 02/14/2021 Assessment & Plan (07/07/2021 2:44 PM ACTING INSTRUCTOR): Patient is scheduled for MR arthrogram of [...] 86 10/02/2023 11:26 AM CDT Temperature 36.7 C (98 F) 10/02/2023 11:07 AM CDT Respiratory Rate 18 [...] series) 1996 Mammogram Screening 2017 COVID-19 Vaccine (1 - 2023-2 5 season) 2024 PHQ-2 (Physician [place]) 06/05/2024 09/19/2022 Meningococcal B Vaccine Aged Out No l onger eligible based on patient's age to complete this topic Meningococcal Vaccine Aged Out No karen jaime eligible based on patient's age to complete this topic Pneumococcal Vaccine: Pediat rics (0 to 5 Years) and At-Risk Patients (6 to 64 Years) Aged Out No longer eligi ble based on patient's age to complete this topic RSV Immunizations Under 20 Months Aged Out No longer eligible based on patient's age to complete this topic Insurance [facility] Care Teams Splunk Developer Relationship Specialty Start Date End Date Ross Campbell FNP [address] [place] [address] PCP - General Nurse Practitioner Family 02/11/21
--- OUTSIDE RECORDS SUMMARY | 2024-09-11 11:05 | XMS_ITS | Continuity of Care Document ---
Author Organization [facility] Address [address] [place] [address] Phone Care Team Providers Care It Business Analyst Name Role Phone Parag Cosby MD Unavailable Unavailable Allergies, Adverse Reactions, Alerts Substance Reaction Status Criticality Sulfa (Sulfonamide Antibiotics) Active No Information morphine Active No Information Procedures Procedure Date Special Narrative Report Special Narrative Report X-ray exam both knees, standing 021 X-ray exam knee, 1 or 2 views 1 Independent Medical Examination HENRIUQE Pre Payment Advance Directives Directive Yes / No Effective Date File Name No Information Encounters Encounter Description Practice Location Reason(s) For Visit Diagnoses Date Provider Providers Copied on Encounter [facility], [address], [id number], tel:[phone] [facility] Pain in right knee 2 Alea Tuttle. [address] [facility] [facility], [place], [id number] , [place]. tel: [phone] [facility], [address], [id number], [place] tel:[phone] [facility] Pain in right knee 1 Alea Tuttle. [address] [facility], [address], [id number] , [place]. tel: [phone] Independent Medical Examination HENRIQUE [facility], [address] [place], [place], [id number], [place] [phone] [facility] right knee (chief complaint) Pain in right knee 1 Alea Tuttle. [address] [facility], [place], [place], [id number] , [place]. tel: [phone] [facility], [address], [place], [place], [id number], [place] [phone] [facility] No Information 1 Alea Tuttle. [address] [facility], [address] [facility], [place], [place], [id number] , [place]. tel: [phone] Family History Family Member Type Diagnosis Age At Onset Problem Family history of stroke Problem Family history of Renal dise ase Problem Family history of hypertensi on Problem Family history of Arthritis Problem Family history of Cancer, un known Problem Family history of Diabetes minda villarreal Payers Payer name Insurance type Covered libertarian ID Authordenga deanna(s) [employer] [id number] Social History Type Description Quantity Date Captured [...]
== END 2024-09-11 09:52 | disposition home or self-care (01) ==
LOC: ANHIMG 09:53
PROVIDERS: PCP Family Medicine; Visit Provider Obstetrics & Gynecology
DX: Z12.31 Encounter for screening mammogram for malignant neoplasm of breast (principal)
CPT/HCPCS: 77063; 77067